=== PATIENT | female | born 1955 | race Caucasian/White ===

== ENCOUNTER → 2017-01-12 | Outpatient (CLI) | payer BC, OTHER ==
[~2017-01-12] MED LIST: ALL180 PO; CHOL100027 PO; CYCL10TA6 PO; DYZ PO; LEVO25TA34 PO; MECL25TA2 PO; NAPR-943 PO; PRM9
== END | disposition home or self-care (01) ==
LOC: C.RDSM 14:44
PROVIDERS: ATTEND Physical Medicine & Rehabilitation Sports Medicine
DX: S49.90XA Unspecified injury of shoulder and upper arm, unspecified arm, initial encounter (principal); X58.XXXA Exposure to other specified factors, initial encounter; M25.512 Pain in left shoulder

== ENCOUNTER → 2017-05-31 | Outpatient (CLI) | payer BC ==
--- NOTE | 2017-05-31 11:10 | DIAGNOSTIC IMAGING REPORT ---
MRI LUMBAR SPINE W/O CONTRAST CLINICAL HISTORY: Low back pain with bilateral leg radiculopathy and leg weakness. Failure to respond to physical therapy. TECHNIQUE: Sagittal and axial T1, T2 and STIR images were obtained. COMPARISON STUDY: No previous studies for comparison. OBSERVATIONS: There is an L1 vertebral body hemangioma. There are no areas of marrow replacement to indicate metastatic disease. L1-2: No disc protrusions or extrusions. No evidence of spinal canal or neural foraminal compromise. L2-3: There is a circumferential disc bulge with mild spinal stenosis. There is no significant foraminal narrowing. There is a 8 mm T2 bright left renal lesion likely representing a cyst L3-4: No disc protrusions or extrusions. No evidence of spinal canal or neural foraminal compromise. L4-5: There is a circumferential disc bulge present. There is moderate spinal stenosis. There is minimal bilateral foraminal narrowing. L5-S1: There is a tiny central disc protrusion. There is bilateral facet joint arthropathy. There is bilateral foraminal narrowing. The conus medullaris and cauda equina appear normal. IMPRESSION: 1. Circumferential disc bulge and mild spinal stenosis the L2-3 level 2. Circumferential disc bulge and moderate spinal stenosis the L4-5 level 3. Tiny central disc protrusion at the L5-S1 level. Moderate bilateral foraminal narrowing. Electronically signed by: Boris Morales M.D. 05/31/2017 11:09 AM Dictated Date/Time: 05/31/2017 11:04 AM
== END | disposition home or self-care (01) ==
LOC: C.MRI 10:06
PROVIDERS: ATTEND Internal Medicine Rheumatology
DX: M51.27 Other intervertebral disc displacement, lumbosacral region (principal); M48.061 Spinal stenosis, lumbar region without neurogenic claudication

== ENCOUNTER 2017-08-03 07:49 | Emergency (ER) | payer BC ==
[~2017-08-03] VITALS: Ht 160 cm; Wt 63.8 kg
[~2017-08-03 07:49] MED LIST changes: -NAPR-943 PO
[2017-08-03 07:54] VITALS: Ht 160 cm; Wt 63.8 kg
[2017-08-03] MEDS ORDERED: SODIUM CHLORIDE 0.9% 1000ML 1,000 ML IV STA (08:06)
[2017-08-03] MEDS ORDERED: ALBUT/IPRATROP 3MG/0.5MG NEB 3 ML VIAL INH STA (08:06)
[2017-08-03 08:44] LABS: BASO % 0.4 %; BASO ABS # 0.03 K/uL (0-0.2); HEMATOCRIT 35.4 % (37-47); HEMOGLOBIN 12.4 g/dL (12.0-16.0); IG# 0.01 K/uL (0.00-0.02); LYMPH % 10.5 %; MEAN CELL VOLUME 85.9 fL (80-100); MEAN CORPUSCULAR HEMOGLOBIN 30.1 pg (25-34); MEAN PLATELET VOLUME 10.5 fL (7.4-10.4); MONO % 10.9 %; MONO ABS # 0.73 K/uL (0.11-0.59); NEUT % 78.1 %; NEUT ABS # 5.22 K/uL (1.4-6.5); PLATELET COUNT 227 K/uL (130-400); RED CELL DISTRIBUTION WIDTH CV 12.2 % (11.5-14.5); RED CELL DISTRIBUTION WIDTH SD 38.3 fL (36.4-46.3); WHITE BLOOD COUNT 6.69 K/uL (4.8-10.8)
[2017-08-03 08:58] LABS: ALBUMIN 3.6 gm/dl (3.4-5.0); BLOOD UREA NITROGEN 24 mg/dl (7-18); CALCIUM 9.1 mg/dl (8.5-10.1); CARBON DIOXIDE 26 mmol/L (21-32); CREATININE 1.22 mg/dl (0.60-1.20); GLUCOSE 108 mg/dl (70-99); LIPASE 78 U/L (73-393); POTASSIUM 2.9 mmol/L (3.5-5.1); SODIUM 137 mmol/L (136-145)
[2017-08-03 09:01] LABS: ALKALINE PHOSPHATASE 84 U/L (45-117); ALT/SGPT 19 U/L (12-78); AST/SGOT 26 U/L (15-37); TOTAL PROTEIN 7.9 gm/dl (6.4-8.2)
[2017-08-03 09:09] LABS: INFLUENZA B ANTIGEN Neg for Influ B (NEG)
[2017-08-03] MEDS ORDERED: FEXO1TAB46 PO (09:09)
[2017-08-03] MEDS ORDERED: TRIATAB3 PO (09:09)
[2017-08-03] MEDS ORDERED: LEVO25TA PO (09:09)
[2017-08-03] MEDS ORDERED: MECL1TAB42 PO (09:09)
[2017-08-03] MEDS ORDERED: AMLO-114 PO (09:11)
[2017-08-03] MEDS ORDERED: POTASSIUM CHLORIDE 10 MEQ TABCR PO STA (09:11)
--- NOTE | 2017-08-03 09:14 | DIAGNOSTIC IMAGING REPORT ---
PA CHEST RADIOGRAPH AND UPRIGHT AND SUPINE AP RADIOGRAPHS OF THE ABDOMEN CLINICAL HISTORY: Abdominal pain. COMPARISON STUDY: Chest radiograph April 24, 2013. FINDINGS: Incidental note is made of an anterior cervical spine fusion. Lung volumes are at the lower limits of normal. There is no consolidation. There is no evidence for pulmonary edema. Cardiomediastinal silhouette is unremarkable. There is no free air. The bowel gas pattern is normal. Pelvic calcifications likely reflect phleboliths. A mild to moderate amount of stool within the colon and rectum is noted. IMPRESSION: 1. No free air or evidence of bowel obstruction. 2. No acute cardiopulmonary findings. Electronically signed by: Reji Sorenson M.D. 08/03/2017 9:12 AM Dictated Date/Time: 08/03/2017 9:11 AM
[2017-08-03] MEDS ORDERED: OSEL75CA12 PO (09:48)
[2017-08-03] MEDS ORDERED: BENZ100C18 PO (09:48)
[2017-08-03] MEDS ORDERED: POTA10CA28 PO (09:48)
[2017-08-03 10:05] VITALS: BP 134/72; PULSE 95; TEMP 37.3; O2SAT 94
--- NOTE | 2017-08-03 11:50 | EMERGENCY ROOM VISIT NOTE ---
ED Visit Note First contact with patient: 07:58 Chief Complaint: Throat pain and cough. History of Present Illness: Ms. Velásquez is a 62-year-old white female who ambulates into the ED complaining of throat pain, cough and abdominal pain. Patient reports she works in a [employer] and has been exposed to a sick patients and her has been recently diagnosed with influenza. She did have an influenza vaccination this year. Patient reports 2 days ago she started developing a cough. She reports since that time it is been constant and nonproductive. She reports when she starts coughing she also has throat pain and abdominal pain. She describes her throat pain as an achy sensation. She does not rate this discomfort. Her discomfort is only when she coughs. She has not taken a medication for her throat discomfort. Additionally she reports she is having abdominal pain with the cough. She places this over the upper abdomen in a bandlike distribution throughout the right and left upper quadrant. Once again this discomfort is only with cough. She rates this discomfort 6/10. The pain is nonradiating. She has not taken a medication for pain prior to arrival at the hospital. Associated with her symptoms she reports she's been having chills but denies yossi fevers, body aches, decreased appetite. She denies skin eruptions, skin color changes, headache, dizziness, lightheadedness, hearing changes, visual changes, difficulty speaking, painful talking, drooling, neck pain/stiffness, chest pain, palpitations, orthopnea, dependent edema, nausea, vomiting, diarrhea, constipation. Review of Systems: As noted above in history of present illness. All body systems were reviewed and found to be negative as noted above. Past Medical History: Hypertension, arthritis, hypothyroidism, Mnire's disease , migraine headaches, cervical spine degeneration, cervical fusion, status post hysterectomy. Current Medications: Medications Dose Route/Sig Max Daily Dose Days Date Category Dose Instructions Norvasc (Amlodipine Besylate) 10 Mg Tab 10 Mg PO DAILY 08/03/17 Reported Triamterene/Hctz 37.5-25MG (Triamterene/HCTZ) 1 Tab Tab 2 Tab PO DAILY 08/03/17 Reported Meclizine Hcl 25 Mg Tab 25 Mg PO TID PRN 08/03/17 Reported Synthroid (Levothyroxine Sodium) 25 Mcg Tab 25 Mcg PO DAILY 08/03/17 Reported Regla (Fexofenadine Hcl) 180 Mg Tab 180 Mg PO DAILY 08/03/17 Reported Premarin (Estrogens, Conjugated) 0.9 Mg Tab 0.9 Mg Q2D 04/24/13 Reported Flexeril (Cyclobenzaprine Hcl) 10 Mg Tab 10 Mg PO TID PRN 04/24/13 Reported PRN Vitamin D 1000 Unit (Cholecalciferol) 1,000 Unit Cap 2,000 Inter.unit PO DAILY 04/24/13 Reported Allergies to Medications: Cephalexin, erythromycin, penicillin, sulfa, fluconazole. Social History: Patient is currently employed; she lives with her and feels safe in her home environments; she denies tobacco use. Physical Examination: Vital Signs: Date Time Temp Pulse Resp B/P (MAP) Pulse Ox O2 Delivery O2 Flow Rate FiO2 08/03/17 10:05 37.3 95 18 134/72 94 08/03/17 10:01 95 18 134/72 94 Room Air 08/03/17 07:54 37.3 101 18 129/65 95 Room Air GENERAL: 62-year-old female in mild distress due to symptoms, nontoxic-appearing , afebrile and hemodynamically stable. NEUROLOGICAL: Awake, alert and oriented to person, place and time. Answering questions appropriately and following commands. Normal gait. Good hand eye coordination. No focal motor or sensory deficits. SKIN: Warm, dry and pink. No soft tissue eruptions or trauma noted. HEENT: Atraumatic and normocephalic. No erythema or tenderness over the frontal or maxillary sinuses. Normal ear exam. PERRL. Sclera white and conjunctiva pink. No drainage from naris, but mild audible congestion. Oral cavity moist and pink. Uvula is midline and no abscesses are seen. Pharynx is mildly erythematous and mildly edematous. No exudative material. Speech normal. No lymphadenopathy. Trachea midline. No jugular venous distention. No laryngeal tenderness. BACK: No tenderness over the bony spine. No meningismus. Full range of motion of the cervical spine. No CVA tenderness. THORAX: Lungs sounds are clear to auscultation and equal bilaterally with symmetrical chest wall. Decreased air movement in the bases bilaterally with slight right sided prominence. There are a few scattered rhonchi that clear with cough. No rales or wheezing. No wheezing, rales or rhonchi. No crepitus , tenderness, subcutaneous air or deformities noted. HEART: Regular rate and rhythm. No gallops, rubs or murmurs are appreciated. ABDOMEN: Flat, soft and nontender. Positive bowel sounds in all quadrants. No guarding, rigidity or organomegaly. EXTREMITIES: Moves all extremities well on command and with purpose. All distal neurovascular statuses are intact and equal bilaterally. No calf tenderness or cords. ED Course: Patient is assessed as noted above. Patient's medication list was reviewed. Laboratory Tests: Test 08/03/17 08:15 08/03/17 08:20 08/03/17 08:26 Range/Units Influenza Type A Antigen POS for Influ A NEG Influenza Type B Antigen Neg for Influ B NEG White Blood Count 6.69 4.8-10.8 K/uL Red Blood Count 4.12 4.2-5.4 M/uL Hemoglobin 12.4 12.0-16.0 g/dL Hematocrit 35.4 37-47 % Mean Corpuscular Volume 85.9 80-100 fL Mean Corpuscular Hemoglobin 30.1 25-34 pg Mean Corpuscular Hemoglobin Concent 35.0 32-36 g/dl Platelet Count 227 130-400 K/uL Mean Platelet Volume 10.5 7.4-10.4 fL Neutrophils (%) (Auto) 78.1 % Lymphocytes (%) (Auto) 10.5 % Monocytes (%) (Auto) 10.9 % Eosinophils (%) (Auto) 0.0 % Basophils (%) (Auto) 0.4 % Neutrophils # (Auto) 5.22 1.4-6.5 K/uL Lymphocytes # (Auto) 0.70 1.2-3.4 K/uL Monocytes # (Auto) 0.73 0.11-0.59 K/uL Eosinophils # (Auto) 0.00 0-0.5 K/uL Basophils # (Auto) 0.03 0-0.2 K/uL RDW Standard Deviation 38.3 36.4-46.3 fL RDW Coefficient of Variation 12.2 11.5-14.5 % Immature Granulocyte % (Auto) 0.1 % Immature Granulocyte # (Auto) 0.01 0.00-0.02 K/uL Sodium Level 137 136-145 mmol/L Potassium Level 2.9 3.5-5.1 mmol/L Chloride Level 100 98-107 mmol/L Carbon Dioxide Level 26 21-32 mmol/L Anion Gap 11.0 3-11 mmol/L Blood Urea Nitrogen 24 7-18 mg/dl Creatinine 1.22 0.60-1.20 mg/dl Est Creatinine Clear Calc Drug Dose 41.9 ml/min Estimated GFR () 54.2 Estimated GFR (Non- 46.8 BUN/Creatinine Ratio 20.0 10-20 Random Glucose 108 70-99 mg/dl Calcium Level 9.1 8.5-10.1 mg/dl Total Bilirubin 0.4 0.2-1 mg/dl Direct Bilirubin < 0.1 0-0.2 mg/dl Aspartate Amino Transf (AST/SGOT) 26 15-37 U/L Alanine Aminotransferase (ALT/SGPT) 19 12-78 U/L Alkaline Phosphatase 84 45-117 U/L Total Protein 7.9 6.4-8.2 gm/dl Albumin 3.6 3.4-5.0 gm/dl Lipase 78 73-393 U/L Bedside Troponin I < 0.030 0-0.045 ng/ml Group A Streptococcus Screen: Negative. Culture pending. Acute Abdominal X-Ray Series: Were read by myself and the radiologist; DC chest shows no acute infiltrates, effusions or pneumothorax. Normal heart silhouette and bony anatomy. Abdominal component shows a nonspecific bowel gas pattern with no signs of free air or bowel obstruction. Radiologist does note mild to moderate amount of stools within the colon and rectum and prior anterior cervical spine fusion. EKG: As read by myself and shows normal sinus rhythm with a ventricular rate of [address] changes in the anterior lead. Slightly prolonged QT interval when compared to previous. No signs of ischemia, injury or infarction. Patient was hydrated with normal saline and was given an albuterol/Atrovent nebulizer breathing treatment; she was offered pain medications and refused. Patient was given 20 mEq of potassium by mouth for her hypokalemia Patient was reassessed multiple times during her stay in the emergency department after her breathing treatment her lungs are reevaluated she had improved air movement in all andersen and had no additional rhonchi or rales. Patient's case was reviewed with Dr. Forrester; we agreed on diagnostic approach , treatment, disposition and plan. Patient was educated about today's findings and instructed on her treatment plan ; she verbalized understanding and agreement with this plan. Clinical Impression: Influenza A. Hypokalemia. Cough. Abdominal pain. Throat pain. Decision-Making: Initially my differential diagnosis I considered influenza, pneumonia, bronchitis, pulmonary edema, pancreatitis, hepatitis, cholecystitis, constipation, bowel obstruction and pharyngitis from multiple causes. Disposition: Patient discharged home in stable condition accompanied by her ; prior to departure she was reassessed and subjectively reported she was feeling better. Plan: Patient was encouraged to alternate ibuprofen and acetaminophen every 3 hours for persistent pain. Patient was prescribed Tamiflu, Tessalon Perles and potassium and instructed on their use. Patient was encouraged to stay well-hydrated with increased clear fluids. Patient was encouraged to follow-up with family physician for recheck and reevaluation of her potassium and kidney function testing. Patient was signed off work for 5 days. Patient was encouraged return ED for worsening symptoms, uncontrolled vomiting, fevers, wheezing, coughing up blood, shortness of breath or any new/concerning symptoms.
== END 2017-08-03 10:05 | disposition home or self-care (01) ==
LOC: C.EDB 07:51 → C.EDA 10:05
DX: J09.X2 Influenza due to identified novel influenza A virus with other respiratory manifestations (principal); E87.6 Hypokalemia; R05 Cough; R10.9 Unspecified abdominal pain; I10 Essential (primary) hypertension; E03.9 Hypothyroidism, unspecified; Z98.1 Arthrodesis status; Z90.710 Acquired absence of both cervix and uterus; Z79.899 Other long term (current) drug therapy; Z88.0 Allergy status to penicillin; Z88.2 Allergy status to sulfonamides; Z88.8 Allergy status to other drugs, medicaments and biological substances

== ENCOUNTER 2018-02-14 16:29 | Inpatient (IN) | payer BC ==
[~2018-02-14] VITALS: Ht 160 cm; Wt 62.1 kg
[~2018-02-14 16:29] MED LIST changes: -ALL180 PO; +AMLO10TA3 PO; -DYZ PO; +FEXO1TAB46 PO; +LEVO25TA PO; -LEVO25TA34 PO; +MECL1TAB42 PO; -MECL25TA2 PO; -PRM9; +PRM9 PO; +TRIATAB3 PO
[2018-02-14] MEDS ORDERED: SODIUM CHLORIDE 0.9% 1000ML 1,000 ML IV STA (16:48)
[2018-02-14 17:20] LABS: BASO % 0.3 %; BASO ABS # 0.04 K/uL (0-0.2); EOS % 0.6 %; EOS ABS # 0.08 K/uL (0-0.5); HEMATOCRIT 36.4 % (37-47); HEMOGLOBIN 12.7 g/dL (12.0-16.0); IG# 0.04 K/uL (0.00-0.02); LYMPH ABS # 4.57 K/uL (1.2-3.4); MEAN CELL VOLUME 86.9 fL (80-100); MEAN CORPUSCULAR HEMOGLOBIN 30.3 pg (25-34); MEAN CORPUSCULAR HGB CONC 34.9 g/dl (32-36); MEAN PLATELET VOLUME 10.5 fL (7.4-10.4); MONO % 4.5 %; MONO ABS # 0.61 K/uL (0.11-0.59); NEUT % 60.3 %; NEUT ABS # 8.09 K/uL (1.4-6.5); PLATELET COUNT 217 K/uL (130-400); RED CELL DISTRIBUTION WIDTH CV 12.4 % (11.5-14.5); RED CELL DISTRIBUTION WIDTH SD 39.8 fL (36.4-46.3); WHITE BLOOD COUNT 13.43 K/uL (4.8-10.8)
[2018-02-14] MEDS ORDERED: LISI-729 PO (17:37)
[2018-02-14 17:40] LABS: ALBUMIN 3.7 gm/dl (3.4-5.0); CALCIUM 9.1 mg/dl (8.5-10.1); CREATININE 3.3 mg/dl (0.60-1.20); POTASSIUM 4.2 mmol/L (3.5-5.1); TOTAL PROTEIN 7.9 gm/dl (6.4-8.2)
[2018-02-14] MEDS ORDERED: NAPR-943 PO (17:40)
--- NOTE | 2018-02-14 17:47 | EMERGENCY ROOM VISIT NOTE ---
ED Visit Note First contact with patient: 16:37 CHIEF COMPLAINT: Abnormal labs HISTORY OF PRESENTING ILLNESS: This is a 62-year-old female who presents to the emergency department sent in by her doctor for abnormal labs. Patient states that she has been feeling dizzy for the past few days and felt like she might be dehydrated. She had lab work done 2 days ago by her doctor which resulted today and he called her telling her that her kidneys were abnormal and she needed to go to the ER for fluids. She states that she has continued to feel lightheaded in spite of drinking more fluids, but she denies any syncope. She denies any headaches, vision changes, chest pain, shortness of breath, back pain , abdominal pain, nausea or vomiting, urinary symptoms, or unusual rash. She states her lightheadedness is not severe right now, but gets worse with position changes, currently rates it a 2/10. She denies any history of problems with her kidneys. She is not a diabetic. She has history of high blood pressure. She denies any other complaints. REVIEW OF SYSTEMS: A complete 10 point review of systems was reviewed with the patient with pertinent positives and negatives as per history of present illness. All else were negative. PAST MEDICAL HISTORY: Reviewed in chart, see problem list below. SOCIAL HISTORY: Lives at home. She denies tobacco use. ALLERGIES: Reviewed in chart, see below. PHYSICAL EXAM: CONSTITUTIONAL: Pleasant and cooperative. No acute distress. Moderately dehydrated. HEENT: Normocephalic, atraumatic. Pupils equal, round and reactive to light, EOMI. TMs normal. Pharynx normal. Dry mucous membranes. NECK: Supple, full active range of motion without discomfort. RESPIRATORY: Clear to auscultation bilaterally with no wheezing, crackles, rhonchi or stridor. Equal expansion bilaterally. CARDIOVASCULAR: Tachycardic. Regular rhythm with no murmurs, rubs or gallops. Normal peripheral perfusion. No edema. GASTROINTESTINAL: Soft, nontender, nondistended. No palpable masses or HSM. Bowel sounds present in all quadrants. MUSCULOSKELETAL: No calf tenderness or swelling. Full range of motion of all joints without discomfort. INTEGUMENTARY: No rash or other significant dermatologic conditions noted. NEUROLOGIC: Alert and oriented X 4 with normal affect. Cranial nerves II-XII grossly intact, no facial droop. No pronator drift. No focal neurologic deficits noted. 5/5 strength in all 4 extremities, sensation intact to light touch in all 4 extremities. Normal speech. Normal gait observed. Finger-nose- finger testing normal, negative Romberg. ED COURSE AND MEDICAL DECISION MAKING: CC: Patient presenting with complaint of abnormal labs (kidney function), dizziness/lightheadedness DIFFERENTIAL DIAGNOSIS: Includes, but not limited to dehydration, electrolyte abnormality, acute kidney injury, medication side effect, orthostatic hypotension, cardiac dysrhythmia, among others. INTERPRETATION OF LABS: Mild leukocytosis with left shift, no anemia, normal platelets, mild hyponatremia, no other significant electrolyte abnormalities, acute renal failure when compared to baseline, normal liver enzymes. UA negative for infection, appears consistent with contaminant. EKG: Shows normal sinus rhythm with a rate of 97 bpm, nonspecific ST abnormality , but no acute ischemic ST or T-wave changes, no ectopy, and no significant change when compared with previous EKG from 08/03/2017 noted by my interpretation. MEDICATION RECONCILIATION: I attest that I have personally reviewed the patient 's current medication list. INITIAL VITAL SIGNS REVIEW: I reviewed the patient's initial vital signs and interpret them as follows: T: Afebrile; BP: Normotensive; HR: Tachycardic; RR : Within normal limits; Pulse Ox: Within normal limits on room air. Blood pressure screening: The patient was found to have normal blood pressure on screening and does not require follow-up for repeat blood pressure check. SUMMARY: Patient was evaluated at bedside, history and physical exam performed. Patient is alert and oriented, in no acute distress, resting calmly in stretcher. Patient is noted to be moderately tachycardic and appears dehydrated on exam. Orthostatic vital signs are positive with hypotension upon standing. Patient does also have some mild lightheadedness with position changes. Orders were placed at bedside for labs, UA, IV fluid bolus for hydration, EKG to evaluate for dizziness and tachycardia. Patient discussed with Dr. Wellington, who agrees with my assessment and plan. Labs and imaging reviewed as above, labs notable for an acute kidney injury, comparison to most recent labs in our system from July 2017 with creatinine of 1.2, which is a new change. Review of outpatient labs notes a creatinine of 1.4 in December, and creatinine of 3.2 on 02/12. I [facility] Hamlet [facility], who agrees to evaluate the patient for admission. Patient reassessed multiple times throughout ED stay, she has remained stable and without complaints, her tachycardia is improving with IV fluid bolus. Patient was updated on all results and plan for admission, she verbalized understanding and was agreeable to this plan. Patient was stable at time of admission. Problem List Medical Problems: (1) Arthritis Status: Chronic (2) Benign hypertension Status: Chronic (3) Carpal tunnel syndrome Status: Resolved (4) cervical spine degeneration Status: Chronic (5) Chest pain Status: Resolved (6) CKD (chronic kidney disease), stage III Status: Chronic (7) Hypothyroidism Status: Chronic (8) Hysterectomy Status: Resolved (9) Mammography normal Status: Resolved (10) MENIERE'S DISEASE, UNSPECIFIED Status: Chronic (11) Migraine Status: Chronic (12) spine fusion - cervical Status: Resolved Surgical Problems: (1) History of carpal tunnel surgery Status: Resolved (2) History of hysterectomy Status: Resolved Current/Historical Medications Scheduled Baclofen (Lioresal), 10 MG PO TID Cholecalciferol (Vitamin D 1000 Unit), 2,000 INTER.UNIT PO DAILY Estrogens, Conjugated (Premarin), 0.9 MG PO Q2D Fexofenadine Hcl (Regla), 180 MG PO DAILY Levothyroxine Sodium (Synthroid), 25 MCG PO DAILY Lisinopril (Zestril), 5 MG PO DAILY Ondasetron Odt (Zofran Odt), 4 MG SL Q8 Triamterene/Hctz (Dyazide 37.5MG/25MG), 1 CAP PO DAILY Scheduled PRN Meclizine Hcl (Meclizine Hcl), 25 MG PO TID PRN for Dizziness or Vertigo Tramadol (Ultram), 50 MG PO Q6 PRN for Pain Allergies Coded Allergies: Sulfa Drugs (Verified Allergy, Severe, SHOCK, 08/03/17) Penicillins (Verified Allergy, Intermediate, SHOCK, 08/03/17) Cephalexin (Unverified Allergy, Unknown, UNKNOWN, 08/03/17) Erythromycin (Unverified Allergy, Unknown, UNKNOWN, 08/03/17) Fluconazole (Unverified Allergy, Unknown, 08/03/17) Vital Signs Date Time Temp Pulse Resp B/P (MAP) Pulse Ox O2 Delivery O2 Flow Rate FiO2 02/14/18 18:29 90 21 98 02/14/18 17:32 114/61 02/14/18 17:29 88 17 98 02/14/18 17:13 97 02/14/18 16:58 95/79 02/14/18 16:56 99 123/64 99 Room Air 97 137/120 114 95/79 02/14/18 16:33 36.8 123 19 107/74 98 Room Air Laboratory Results 02/14/18 17:10 Red Blood Count 4.19, Mean Corpuscular Volume 86.9, Mean Corpuscular Hemoglobin 30.3, Mean Corpuscular Hemoglobin Concent 34.9, Mean Platelet Volume 10.5, Neutrophils (%) (Auto) 60.3, Lymphocytes (%) (Auto) 34.0, Monocytes (%) (Auto) 4.5, Eosinophils (%) (Auto) 0.6, Basophils (%) (Auto) 0.3, Neutrophils # (Auto) 8.09, Lymphocytes # (Auto) 4.57, Monocytes # (Auto) 0.61, Eosinophils # (Auto) 0.08, Basophils # (Auto) 0.04 02/14/18 17:10 Test 02/14/18 17:10 02/14/18 17:11 White Blood Count 13.43 K/uL (4.8-10.8) Red Blood Count 4.19 M/uL (4.2-5.4) Hemoglobin 12.7 g/dL (12.0-16.0) Hematocrit 36.4 % (37-47) Mean Corpuscular Volume 86.9 fL (80-100) Mean Corpuscular Hemoglobin 30.3 pg (25-34) Mean Corpuscular Hemoglobin Concent 34.9 g/dl (32-36) Platelet Count 217 K/uL (130-400) Mean Platelet Volume 10.5 fL (7.4-10.4) Neutrophils (%) (Auto) 60.3 % Lymphocytes (%) (Auto) 34.0 % Monocytes (%) (Auto) 4.5 % Eosinophils (%) (Auto) 0.6 % Basophils (%) (Auto) 0.3 % Neutrophils # (Auto) 8.09 K/uL (1.4-6.5) Lymphocytes # (Auto) 4.57 K/uL (1.2-3.4) Monocytes # (Auto) 0.61 K/uL (0.11-0.59) Eosinophils # (Auto) 0.08 K/uL (0-0.5) Basophils # (Auto) 0.04 K/uL (0-0.2) RDW Standard Deviation 39.8 fL (36.4-46.3) RDW Coefficient of Variation 12.4 % (11.5-14.5) Immature Granulocyte % (Auto) 0.3 % Immature Granulocyte # (Auto) 0.04 K/uL (0.00-0.02) Prothrombin Time 10.1 SECONDS (9.0-12.0) Prothromb Time International Ratio 1.0 (0.9-1.1) Activated Partial Thromboplast Time 23.9 SECONDS (21.0-31.0) Partial Thromboplastin Ratio 0.9 Anion Gap 10.0 mmol/L (3-11) Est Creatinine Clear Calc Drug Dose 14.2 ml/min Estimated GFR () 16.3 Estimated GFR (Non- 14.0 BUN/Creatinine Ratio 24.7 (10-20) Calcium Level 9.1 mg/dl (8.5-10.1) Phosphorus Level 5.2 mg/dl (2.5-4.9) Magnesium Level 2.4 mg/dl (1.8-2.4) Total Bilirubin 0.4 mg/dl (0.2-1) Aspartate Amino Transf (AST/SGOT) 22 U/L (15-37) Alanine Aminotransferase (ALT/SGPT) 23 U/L (12-78) Alkaline Phosphatase 83 U/L (45-117) Total Protein 7.9 gm/dl (6.4-8.2) Albumin 3.7 gm/dl (3.4-5.0) Globulin 4.2 gm/dl (2.5-4.0) Albumin/Globulin Ratio 0.9 (0.9-2) Thyroid Stimulating Hormone (TSH) 4.970 uIu/ml (0.300-4.500) Urine Color YELLOW Urine Appearance CLOUDY (CLEAR) Urine pH 5.5 (4.5-7.5) Urine Specific [place] 1.015 (1.000-1.030) Urine Protein NEG (NEG) Urine Glucose (UA) NEG (NEG) Urine Ketones NEG (NEG) Urine Occult Blood NEG (NEG) Urine Nitrite NEG (NEG) Urine Bilirubin NEG (NEG) Urine Urobilinogen NEG (NEG) Urine Leukocyte Esterase NEG (NEG) Urine WBC (Auto) 5-10 /hpf (0-5) Urine RBC (Auto) 0-4 /hpf (0-4) Urine Hyaline Casts (Auto) 1-5 /lpf (0-5) Urine Epithelial Cells (Auto) >30 /lpf (0-5) Urine Bacteria (Auto) 1+ (NEG) Medications Administered Medications (Trade) Dose Ordered Sig/Aries Route Start Time Stop Time Status Last Admin Dose Admin Sodium Chloride 1,000 ml @ 999 mls/hr Q1H1M STAT IV 02/14/18 16:48 02/14/18 17:48 DC 02/14/18 16:48 999 MLS/HR Departure Information Impression Primary Impression: WYATT (acute kidney injury) Dispostion Admitted as an inpatient Condition FAIR Referrals Lucas Epps III, M.D. (PCP) Patient Instructions My [facility]
[2018-02-14] MEDS ORDERED: ACETAMINOPHEN 325 MG TAB PO PRN (18:45)
[2018-02-14] MEDS ORDERED: POLYETHYLENE (MIRALAX) 17 GM PACK PO PRN (18:45)
[2018-02-14] MEDS ORDERED: HEPARIN SOD 5000 UNIT/0.5 ML CARP SQ SCH (18:45)
[2018-02-14] MEDS ORDERED: ONDANSETRON INJ 2 MG/ML 2 ML VIAL IV PRN (18:45)
[2018-02-14] MEDS ORDERED: BACL1TAB PO (18:52)
[2018-02-14] MEDS ORDERED: ONDA4TAB10 SL (18:52)
[2018-02-14] MEDS ORDERED: TRAM-10 PO (18:52)
[2018-02-14] MEDS ORDERED: HEPARIN 25000 UNIT/500 ML D5W ONE (18:56)
[2018-02-14] MEDS ORDERED: TRIA37.5 PO (18:59)
[2018-02-14] MEDS ORDERED: TRAMADOL HCL 50 MG TAB PO PRN (19:00)
[2018-02-14 19:23] LABS: PTT PATIENT 23.9 SECONDS (21.0-31.0)
--- NOTE | 2018-02-14 19:27 | History and Physical ---
History & Physical Date & Time of Service: Feb 14, 2018 at 18:53 Chief Complaint: Referred By Dr Epps Primary Care Physician: Lucas Epps III, M.D. History of Present Illness Source: patient, family, clinic records, hospital records Pt is 62 y/o F with PMH CKD III, migraine FLORES, Meniere's, hypothyroidism, HTN presented to ER referred by PCP for worsening renal functions. Patient reports last week was having some dizziness aggravated with standing, denies vertigo type symptoms. She had nausea and vomited once last week, no further vomiting since. She was seen at PCPs office and had outpatient labs done revealing elevated creatinine level. Denies NSAID use for past month. Taking triamterene/ hctz. Was started on lisinopril on 01/28/18. Drinks total 2 cups fluids a day ( soda or tea). States some intermittent low back pain past week described as aching, non-radiating. Denies LE pain or paresthesias, saddle paresthesias, loss control of bowel/bladder. urinates 2-3 times a day. Denies hx kidney stones. Denies fever/chills, diaphoresis, D/C, FLORES, syncope, vision changes, neck pain, CP, SOB, orthopnea, palpitations, cough, sore throat, choking, otalgia, rhinorrhea, abdominal pain, paresthesias, weakness, extremity weakness , extremity edema, rashes, urinary symptoms, weight changes. Past Medical/Surgical History Medical Problems: (1) Arthritis Status: Chronic (2) Benign hypertension Status: Chronic (3) Carpal tunnel syndrome Status: Resolved (4) cervical spine degeneration Status: Chronic (5) Chest pain Status: Resolved (6) CKD (chronic kidney disease), stage III Status: Chronic (7) Hypothyroidism Status: Chronic (8) Hysterectomy Status: Resolved (9) Mammography normal Status: Resolved (10) MENIERE'S DISEASE, UNSPECIFIED Status: Chronic (11) Migraine Status: Chronic (12) spine fusion - cervical Status: Resolved Surgical Problems: (1) History of carpal tunnel surgery Status: Resolved (2) History of hysterectomy Status: Resolved Family History FH: cancer FH: hypercholesterolemia FH: thyroid disease Hypertension Stroke Social History Smoking Status: Never Smoker Smokeless Tobacco Use: No Alcohol Use: none Drug Use: none Marital Status: Housing status: lives with family Occupational Status: employed Immunizations History of Influenza Vaccine: No History of Tetanus Vaccine?: utd History of Pneumococcal: No History of Hepatitis B Vaccine: No Allergies Coded Allergies: Sulfa Drugs (Verified Allergy, Severe, SHOCK, 08/03/17) Penicillins (Verified Allergy, Intermediate, SHOCK, 08/03/17) Cephalexin (Unverified Allergy, Unknown, UNKNOWN, 08/03/17) Erythromycin (Unverified Allergy, Unknown, UNKNOWN, 08/03/17) Fluconazole (Unverified Allergy, Unknown, 08/03/17) Home Medications Scheduled Baclofen (Lioresal), 10 MG PO TID Cholecalciferol (Vitamin D 1000 Unit), 2,000 INTER.UNIT PO DAILY Estrogens, Conjugated (Premarin), 0.9 MG PO Q2D Fexofenadine Hcl (Regla), 180 MG PO DAILY Levothyroxine Sodium (Synthroid), 25 MCG PO DAILY Lisinopril (Zestril), 5 MG PO DAILY Ondasetron Odt (Zofran Odt), 4 MG SL Q8 Triamterene/Hctz (Dyazide 37.5MG/25MG), 1 CAP PO DAILY Scheduled PRN Meclizine Hcl (Meclizine Hcl), 25 MG PO TID PRN for Dizziness or Vertigo Tramadol (Ultram), 50 MG PO Q6 PRN for Pain Review of Systems See HPI for pertinent positives & negatives. All other systems reviewed and were otherwise negative Physical Exam Vital Signs Date Time Temp Pulse Resp B/P (MAP) Pulse Ox O2 Delivery O2 Flow Rate FiO2 02/14/18 18:29 90 21 98 02/14/18 17:32 114/61 02/14/18 17:29 88 17 98 02/14/18 17:13 97 02/14/18 16:58 95/79 02/14/18 16:56 99 123/64 99 Room Air 97 137/120 114 95/79 02/14/18 16:33 36.8 123 19 107/74 98 Room Air General Appearance: WD/WN, no apparent distress Head: normocephalic, atraumatic Eyes: normal inspection, PERRL, EOMI, sclerae normal ENT: hearing grossly normal, pharynx normal, + pertinent finding (mucous membranes mildly dry) Neck: supple, trachea midline Respiratory/Chest: lungs clear, normal breath sounds, no respiratory distress Cardiovascular: regular rate, rhythm, normal peripheral pulses Abdomen/GI: normal bowel sounds, non tender, soft Back: no CVA tenderness Extremities/Musculoskelatal: normal capillary refill, no pedal edema, normal range of motion, non-tender Neurologic/Psych: alert, normal mood/affect, normal reflexes Skin: warm/dry Diagnostics Laboratory Results Results Past 24 Hours Test 02/14/18 17:10 02/14/18 17:11 02/14/18 18:43 Range/Units White Blood Count 13.43 4.8-10.8 K/uL Red Blood Count 4.19 4.2-5.4 M/uL Hemoglobin 12.7 12.0-16.0 g/dL Hematocrit 36.4 37-47 % Mean Corpuscular Volume 86.9 80-100 fL Mean Corpuscular Hemoglobin 30.3 25-34 pg Mean Corpuscular Hemoglobin Concent 34.9 32-36 g/dl Platelet Count 217 130-400 K/uL Mean Platelet Volume 10.5 7.4-10.4 fL Neutrophils (%) (Auto) 60.3 % Lymphocytes (%) (Auto) 34.0 % Monocytes (%) (Auto) 4.5 % Eosinophils (%) (Auto) 0.6 % Basophils (%) (Auto) 0.3 % Neutrophils # (Auto) 8.09 1.4-6.5 K/uL Lymphocytes # (Auto) 4.57 1.2-3.4 K/uL Monocytes # (Auto) 0.61 0.11-0.59 K/uL Eosinophils # (Auto) 0.08 0-0.5 K/uL Basophils # (Auto) 0.04 0-0.2 K/uL RDW Standard Deviation 39.8 36.4-46.3 fL RDW Coefficient of Variation 12.4 11.5-14.5 % Immature Granulocyte % (Auto) 0.3 % Immature Granulocyte # (Auto) 0.04 0.00-0.02 K/uL Sodium Level 133 136-145 mmol/L Potassium Level 4.2 3.5-5.1 mmol/L Chloride Level 99 98-107 mmol/L Carbon Dioxide Level 24 21-32 mmol/L Anion Gap 10.0 3-11 mmol/L Blood Urea Nitrogen 82 7-18 mg/dl Creatinine 3.30 0.60-1.20 mg/dl Est Creatinine Clear Calc Drug Dose 14.2 ml/min Estimated GFR () 16.3 Estimated GFR (Non- 14.0 BUN/Creatinine Ratio 24.7 10-20 Random Glucose 102 70-99 mg/dl Calcium Level 9.1 8.5-10.1 mg/dl Total Bilirubin 0.4 0.2-1 mg/dl Aspartate Amino Transf (AST/SGOT) 22 15-37 U/L Alanine Aminotransferase (ALT/SGPT) 23 12-78 U/L Alkaline Phosphatase 83 45-117 U/L Total Protein 7.9 6.4-8.2 gm/dl Albumin 3.7 3.4-5.0 gm/dl Globulin 4.2 2.5-4.0 gm/dl Albumin/Globulin Ratio 0.9 0.9-2 Urine Color YELLOW Urine Appearance CLOUDY CLEAR Urine pH 5.5 4.5-7.5 Urine Specific [place] 1.015 1.000-1.030 Urine Protein NEG NEG Urine Glucose (UA) NEG NEG Urine Ketones NEG NEG Urine Occult Blood NEG NEG Urine Nitrite NEG NEG Urine Bilirubin NEG NEG Urine Urobilinogen NEG NEG Urine Leukocyte Esterase NEG NEG Urine WBC (Auto) 5-10 0-5 /hpf Urine RBC (Auto) 0-4 0-4 /hpf Urine Hyaline Casts (Auto) 1-5 0-5 /lpf Urine Epithelial Cells (Auto) >30 0-5 /lpf Urine Bacteria (Auto) 1+ NEG Microbiology Results 02/14/18 Urine Culture, Received Pending Impression Assessment and Plan Pt is 62 y/o F with PMH CKD III, migraine FLORES, Meniere's, hypothyroidism, HTN presented to ER referred by PCP for worsening renal functions. ACUTE KIDNEY INJURY ON CKD III DEHYDRATION Probable secondary to lisinopril/thiazide and poor oral intake. Patient with chronic poor fluid intake (drinks total 2 cups of fluids daily). Creatinine: 3.3. (Baseline 1.3-1.5). Positive orthostatics from sitting to standing in ER (patient denies dizziness with orthostatics). -Pending urine culture -Renal artery duplex pending -Retroperitoneal renal ultrasound r/o obstruction pending -Hold lisinopril, Dyazide -IVF -Monitor renal functions, magnesium and phosphorus labs in a.m. -Avoid nephrotoxic agents when possible -Consider nephrology consult if no improvement LEUKOCYTOSIS WBC: 13. Patient afebrile, UA: Appears contaminated. Denies urinary symptoms. Denies CP, SOB, or cough -Pending urine culture -Pending chest x-ray -Hold on antibiotics at this time -CBC in a.m. HTN Currently stable -Monitor -Hold lisinopril, Dyazide HYPOTHYROIDISM -Pending TSH -Continue levothyroxine H/O CHRONIC NECK PAIN -avoid NSAIDs -continue tramadol prn DVT Prophylaxis -heparin SQ Admit medsurg Full Code as per discussion with pt Follows with Dr Epps for routine care Pt was seen with Dr Gallegos. See addendum Resuscitation Status VTE Prophylaxis Will order VTE Prophylaxis: Yes Note ATTENDING ADDENDUM Record reviewed. Patient interviewed and examined. Care coordinated with Leesa Duarte PA-C. Please refer to her documentation for patient's history. Briefly, 62-year-old female taking lisinopril and diuretics for hypertension. Refer to ED for elevated creatinine EXAM: General- no distress Lungs- clear to auscultation; no respiratory distress Cardiovascular- RRR; no murmur or gallop appreciated; no JVD; no pretibial edema Abdomen- + bowel sounds, soft, nontender Extremities- no cyanosis; no calf tenderness Neuro- alert, oriented Skin- warm & dry DATA: Serum creatinine 3.3. Potassium 4.2. Other lab studies as noted. EKG performed at 1656 reviewed and demonstrated baseline artifact, normal sinus rhythm at 97/ minute, ST depression in V6. ASSESSMENT AND PLAN: Acute kidney injury. Hold diuretics and lisinopril. Avoid NSAIDs. Check renal ultrasound. Check duplex renal arteries. Please refer to RAFFI Her's documentation for discussion of other issues. Lucas Gallegos MD . Additional Copies To Lucas Epps III, M.D.
[2018-02-14 19:28] VITALS: Ht 160 cm; Wt 62.1 kg
--- NOTE | 2018-02-14 19:59 | DIAGNOSTIC IMAGING REPORT ---
CHEST 2 VIEWS ROUTINE HISTORY: leukocytosis COMPARISON: Chest 08/03/2017. FINDINGS: The lungs are clear. Cardiac silhouette is normal in size. No pleural effusions. No pneumothorax. Cervical spinal fusion hardware is again noted. IMPRESSION: No acute process. Electronically signed by: Estevan Royal M.D. 02/14/2018 7:58 PM Dictated Date/Time: 02/14/2018 7:57 PM
[2018-02-14 20:11] LABS: PHOSPHORUS 5.2 mg/dl (2.5-4.9)
[2018-02-14 20:16] VITALS: O2SAT 100
[2018-02-14 20:34] VITALS: BP 129/83; PULSE 106; TEMP 36.8; O2SAT 99
[2018-02-14] MEDS: SODIUM CHLORIDE 0.9% 1000ML 1,000 ML IV SCH (20:57)
[2018-02-14] MEDS: HEPARIN SOD 5000 UNIT/0.5 ML CARP SQ SCH (22:00)
--- NOTE | 2018-02-14 23:10 | DIAGNOSTIC IMAGING REPORT ---
DUPLEX RENAL ARTERY CLINICAL HISTORY: Acute kidney injury. COMPARISON STUDY: None. FINDINGS: The peak systolic velocity within the right renal artery was 115 cm/s proximally and the left renal artery was 85 cm/s proximally. Resistive indices of the bilateral renal arcuate arteries are within normal limits and measure less than 0.75. Bilateral renal veins are patent. IMPRESSION: No evidence for renal artery stenosis. Electronically signed by: Estevan Royal M.D. 02/14/2018 11:09 PM Dictated Date/Time: 02/14/2018 11:08 PM
--- NOTE | 2018-02-14 23:12 | DIAGNOSTIC IMAGING REPORT ---
RENAL ULTRASOUND HISTORY: Acute kidney injury R/O obstruction COMPARISON: None. FINDINGS: Right kidney: 9.6 cm. No hydronephrosis. Normal cortical thickness. Slight increased cortical echogenicity. Left kidney: 10.8 cm. No hydronephrosis. Mild cortical thinning/scarring with slight increased cortical echogenicity. Bladder: Not well distended. No definite bladder wall thickening. Only the left ureteral jet was identified at this time. IMPRESSION: 1. No hydronephrosis. 2. Slight increase in the cortical echogenicity within the kidneys suggestive of medical renal disease Electronically signed by: Estevan Royal M.D. 02/14/2018 11:10 PM Dictated Date/Time: 02/14/2018 11:09 PM
[2018-02-14 23:20] VITALS: BP_SYST 102; BP_SYST 106; BP_SYST 116; BP_DIAS 65; BP_DIAS 69; BP_DIAS 73; PULSE 84; PULSE 89; PULSE 91; TEMP 36.6; O2SAT 100
[2018-02-15] MEDS: HEPARIN SOD 5000 UNIT/0.5 ML CARP SQ SCH ×3 (06:00→21:21)
[2018-02-15] MEDS: LEVOTHYROXINE 25 MCG TAB PO SCH (06:17)
[2018-02-15 07:06] VITALS: BP 111/73; PULSE 61; TEMP 36.4; O2SAT 97
[2018-02-15] MEDS: SODIUM CHLORIDE 0.9% 1000ML 1,000 ML IV SCH ×2 (07:09→16:59)
[2018-02-15 07:23] LABS: BASO % 0.5 %; BASO ABS # 0.04 K/uL (0-0.2); EOS % 1.1 %; EOS ABS # 0.09 K/uL (0-0.5); HEMATOCRIT 30.7 % (37-47); HEMOGLOBIN 10.4 g/dL (12.0-16.0); IG# 0.02 K/uL (0.00-0.02); LYMPH % 38.5 %; LYMPH ABS # 3.13 K/uL (1.2-3.4); MEAN CELL VOLUME 86.7 fL (80-100); MEAN CORPUSCULAR HEMOGLOBIN 29.4 pg (25-34); MEAN CORPUSCULAR HGB CONC 33.9 g/dl (32-36); MEAN PLATELET VOLUME 10.2 fL (7.4-10.4); MONO % 5.2 %; MONO ABS # 0.42 K/uL (0.11-0.59); NEUT % 54.5 %; NEUT ABS # 4.42 K/uL (1.4-6.5); PLATELET COUNT 170 K/uL (130-400); RED CELL DISTRIBUTION WIDTH CV 12.4 % (11.5-14.5); RED CELL DISTRIBUTION WIDTH SD 40.1 fL (36.4-46.3); WHITE BLOOD COUNT 8.12 K/uL (4.8-10.8)
[2018-02-15] MEDS: CHOLECALCIFEROL 1000 INTER.UNIT TAB PO SCH (07:41)
[2018-02-15 07:46] LABS: CALCIUM 7.5 mg/dl (8.5-10.1); CREATININE 2.62 mg/dl (0.60-1.20); PHOSPHORUS 4.7 mg/dl (2.5-4.9); POTASSIUM 4.1 mmol/L (3.5-5.1)
[2018-02-15] MEDS ORDERED: ESTROGENS, CONJUGATED 0.3 MG TAB PO SCH (09:00)
[2018-02-15 14:32] VITALS: BP 137/81; PULSE 78; TEMP 35.8; O2SAT 98
--- NOTE | 2018-02-15 20:27 | Progress Note ---
Medicine Progress Note Date & Time of Visit: Feb 15, 2018 at 16:40 . Subjective CC: Follow-up visit for acute kidney injury. HPI: Feels better. Orthostatic lightheadedness resolved. ROS: General- no fever, no chills Resp- no cough; no shortness of breath Cardiac- no chest pain, no edema GI- no nausea, no vomiting, no diarrhea - no dysuria, no difficulty voiding . Objective Last 8 Hrs Date Time Temp Pulse Resp B/P (MAP) Pulse Ox O2 Delivery O2 Flow Rate FiO2 02/15/18 15:53 Room Air 02/15/18 14:32 35.8 78 20 137/81 (99) 98 Room Air Physical Exam: General- no distress Lungs- clear to auscultation; no respiratory distress Cardiovascular- RRR; no murmur; no gallop; no JVD; no pretibial edema Abdomen- + bowel sounds, soft, nontender Extremities- no cyanosis; no calf tenderness Neuro- alert, oriented Skin- warm & dry . Laboratory Results: Last 24 Hours Test 02/15/18 06:59 White Blood Count 8.12 K/uL Red Blood Count 3.54 M/uL Hemoglobin 10.4 g/dL Hematocrit 30.7 % Mean Corpuscular Volume 86.7 fL Mean Corpuscular Hemoglobin 29.4 pg Mean Corpuscular Hemoglobin Concent 33.9 g/dl Platelet Count 170 K/uL Mean Platelet Volume 10.2 fL Neutrophils (%) (Auto) 54.5 % Lymphocytes (%) (Auto) 38.5 % Monocytes (%) (Auto) 5.2 % Eosinophils (%) (Auto) 1.1 % Basophils (%) (Auto) 0.5 % Neutrophils # (Auto) 4.42 K/uL Lymphocytes # (Auto) 3.13 K/uL Monocytes # (Auto) 0.42 K/uL Eosinophils # (Auto) 0.09 K/uL Basophils # (Auto) 0.04 K/uL RDW Standard Deviation 40.1 fL RDW Coefficient of Variation 12.4 % Immature Granulocyte % (Auto) 0.2 % Immature Granulocyte # (Auto) 0.02 K/uL Sodium Level 137 mmol/L Potassium Level 4.1 mmol/L Chloride Level 108 mmol/L Carbon Dioxide Level 20 mmol/L Anion Gap 9.0 mmol/L Blood Urea Nitrogen 64 mg/dl Creatinine 2.62 mg/dl Est Creatinine Clear Calc Drug Dose 17.9 ml/min Estimated GFR () 21.5 Estimated GFR (Non- 18.6 BUN/Creatinine Ratio 24.4 Random Glucose 93 mg/dl Calcium Level 7.5 mg/dl Phosphorus Level 4.7 mg/dl Magnesium Level 2.3 mg/dl Assessment & Plan ACUTE KIDNEY INJURY Creatinine at time of admission was 3.3. Triamterene/HCTZ and lisinopril held. Renal US negative for obstruction. Duplex renal arteries did not show any evidence of renal artery stenosis. Receiving IV fluids. Creatinine today = 2.62. HYPERTENSION Triamterene/HCTZ and lisinopril held for WYATT. BP this morning 111/73. Follow. HYPOTHYROIDISM TSH 4.970. Increase levothyroxine to 50 mcg daily. VTE PROPHYLAXIS SQ heparin. Ambulate. DISPOSITION Expected discharge to home. Family Medicine follow-up with Dr. Epps. . Current Inpatient Medications: Current Inpatient Medications Medications (Trade) Dose Ordered Sig/Aries Route Start Time Stop Time Status Last Admin Dose Admin Acetaminophen (Tylenol Tab) 650 mg Q4H PRN PO 02/14/18 18:45 03/16/18 18:44 Polyethylene (Miralax Powder Packet) 17 gm DAILY PRN PO 02/14/18 18:45 03/16/18 18:44 Ondansetron HCl (Zofran Inj) 4 mg Q6H PRN IV 02/14/18 18:45 03/16/18 18:44 Sodium Chloride 1,000 ml @ 100 mls/hr Q10H IV 02/14/18 21:00 03/16/18 18:44 02/15/18 16:59 100 MLS/HR Cholecalciferol (Vitamin D Tab) 2,000 inter.unit DAILY PO 02/15/18 08:00 03/17/18 08:59 02/15/18 07:41 2,000 INTER.UNIT Estrogens Conjugated (Premarin Tab) 0.9 mg Q2D@0900 PO 02/15/18 09:00 03/17/18 08:59 02/15/18 07:41 0.9 MG Levothyroxine Sodium (Synthroid Tab) 25 mcg DAILYBB PO 02/15/18 06:30 03/17/18 06:59 02/15/18 06:17 25 MCG Tramadol HCl (Ultram Tab) 50 mg Q6 PRN PO 02/14/18 19:00 03/16/18 18:59 Heparin Sodium (Porcine) (Heparin Sq 5000 Unit/0.5ml) 5,000 unit Q8 SQ 02/14/18 22:00 03/16/18 18:44
[2018-02-15 23:26] VITALS: BP 99/61; PULSE 69; TEMP 36.9; O2SAT 97
[2018-02-16] MEDS: SODIUM CHLORIDE 0.9% 1000ML 1,000 ML IV SCH ×2 (02:47→12:42)
[2018-02-16] MEDS: LEVOTHYROXINE 25 MCG TAB PO SCH (06:32)
[2018-02-16] MEDS: HEPARIN SOD 5000 UNIT/0.5 ML CARP SQ SCH ×2 (06:33→14:30)
[2018-02-16 07:08] LABS: HEMATOCRIT 31.5 % (37-47); HEMOGLOBIN 10.8 g/dL (12.0-16.0); MEAN CELL VOLUME 86.5 fL (80-100); MEAN CORPUSCULAR HEMOGLOBIN 29.7 pg (25-34); MEAN CORPUSCULAR HGB CONC 34.3 g/dl (32-36); MEAN PLATELET VOLUME 10.4 fL (7.4-10.4); PLATELET COUNT 179 K/uL (130-400); RED CELL DISTRIBUTION WIDTH CV 12.2 % (11.5-14.5); RED CELL DISTRIBUTION WIDTH SD 38.9 fL (36.4-46.3); WHITE BLOOD COUNT 10.63 K/uL (4.8-10.8)
[2018-02-16 07:12] VITALS: BP 134/74; PULSE 66; TEMP 36.8; O2SAT 98
[2018-02-16] MEDS: CHOLECALCIFEROL 1000 INTER.UNIT TAB PO SCH (07:40)
[2018-02-16 07:57] LABS: CALCIUM 7.6 mg/dl (8.5-10.1); CREATININE 2.16 mg/dl (0.60-1.20); POTASSIUM 3.5 mmol/L (3.5-5.1)
[2018-02-16 14:50] VITALS: BP_SYST 147; BP_SYST 150; BP_DIAS 80; BP_DIAS 81; PULSE 70; TEMP 36.6; O2SAT 100
--- NOTE | 2018-02-16 14:55 | Progress Note ---
Medicine Progress Note Date & Time of Visit: Feb 16, 2018 at 14:55 . Subjective Doing well. No chest pain, cough, shortness of breath, nausea, vomiting, or other concerns. Good oral fluid intake. Ambulating. Would like to go home. . Objective Last 8 Hrs Date Time Temp Pulse Resp B/P (MAP) Pulse Ox O2 Delivery O2 Flow Rate FiO2 02/16/18 14:50 36.6 70 20 150/80 (103) 100 Room Air 147/81 (103) 02/16/18 08:00 Room Air 02/16/18 07:12 36.8 66 18 134/74 (94) 98 Room Air Physical Exam: General- no distress Lungs- clear to auscultation; no respiratory distress Cardiovascular- RRR; no murmur; no gallop; no JVD; no pretibial edema Abdomen- + bowel sounds, soft, nontender Extremities- no cyanosis; no calf tenderness Neuro- alert, oriented Skin- warm & dry . Laboratory Results: Last 24 Hours Test 02/16/18 06:55 White Blood Count 10.63 K/uL Red Blood Count 3.64 M/uL Hemoglobin 10.8 g/dL Hematocrit 31.5 % Mean Corpuscular Volume 86.5 fL Mean Corpuscular Hemoglobin 29.7 pg Mean Corpuscular Hemoglobin Concent 34.3 g/dl RDW Standard Deviation 38.9 fL RDW Coefficient of Variation 12.2 % Platelet Count 179 K/uL Mean Platelet Volume 10.4 fL Sodium Level 138 mmol/L Potassium Level 3.5 mmol/L Chloride Level 109 mmol/L Carbon Dioxide Level 20 mmol/L Anion Gap 9.0 mmol/L Blood Urea Nitrogen 42 mg/dl Creatinine 2.16 mg/dl Est Creatinine Clear Calc Drug Dose 21.8 ml/min Estimated GFR () 27.2 Estimated GFR (Non- 23.4 BUN/Creatinine Ratio 19.2 Random Glucose 91 mg/dl Calcium Level 7.6 mg/dl Assessment & Plan ACUTE KIDNEY INJURY Patient was experiencing weakness and orthostatic lightheadedness. Labs done in clinic demonstrated creatinine of 3.2. Patient was referred to the ED for evaluation. Creatinine at time of admission was 3.3, compared to baseline creatinine 1.3- 1.5. Patient was taking triamterene/hydrochlorothiazide (although she has been instructed to stop it on 02/09/18). She had recently been started on lisinopril. Triamterene/HCTZ and lisinopril held. Received IV fluids. Renal US negative for obstruction. Duplex renal arteries did not show any evidence of renal artery stenosis. Creatinine today = 2.16. IV fluids discontinued. Patient encouraged to maintain adequate oral fluid intake. Advised to avoid nonsteroidal anti-inflammatory drugs. Follow. HYPERTENSION Triamterene/HCTZ and lisinopril discontinued for WYATT. BP last night was 99/61; BP this morning 134/74. Follow. HYPOTHYROIDISM TSH slightly elevated at 4.970. Continue current dose of levothyroxine of 25 mcg daily. Check repeat TSH in clinic and adjust dosage if TSH remains elevated. VTE PROPHYLAXIS SQ heparin. Ambulate. DISPOSITION Discharge to home. Family Medicine follow-up with Dr. Epps. . Current Inpatient Medications: Current Inpatient Medications Medications (Trade) Dose Ordered Sig/Aries Route Start Time Stop Time Status Last Admin Dose Admin Acetaminophen (Tylenol Tab) 650 mg Q4H PRN PO 02/14/18 18:45 03/16/18 18:44 Polyethylene (Miralax Powder Packet) 17 gm DAILY PRN PO 02/14/18 18:45 03/16/18 18:44 Ondansetron HCl (Zofran Inj) 4 mg Q6H PRN IV 02/14/18 18:45 03/16/18 18:44 Sodium Chloride 1,000 ml @ 100 mls/hr Q10H IV 02/14/18 21:00 03/16/18 18:44 02/16/18 12:42 100 MLS/HR Cholecalciferol (Vitamin D Tab) 2,000 inter.unit DAILY PO 02/15/18 08:00 03/17/18 08:59 02/16/18 07:40 2,000 INTER.UNIT Estrogens Conjugated (Premarin Tab) 0.9 mg Q2D@0900 PO 02/15/18 09:00 03/17/18 08:59 02/15/18 07:41 0.9 MG Levothyroxine Sodium (Synthroid Tab) 25 mcg DAILYBB PO 02/15/18 06:30 03/17/18 06:59 02/16/18 06:32 25 MCG Tramadol HCl (Ultram Tab) 50 mg Q6 PRN PO 02/14/18 19:00 03/16/18 18:59 Heparin Sodium (Porcine) (Heparin Sq 5000 Unit/0.5ml) 5,000 unit Q8 SQ 02/14/18 22:00 03/16/18 18:44
--- NOTE | 2018-02-16 15:08 | Discharge Instructions ---
Discharge Instructions Date of Service Feb 16, 2018. Admission Reason for Admission: abnormal kidney function . Discharge Discharge Diagnosis / Problem: abnormal kidney function Discharge Goals Goal(s): Improve function Activity Recommendations Activity Limitations: resume your previous activity . Instructions / Follow-Up Instructions / Follow-Up APPOINTMENTS: FAMILY MEDICINE 02/23/2018 2:00 PM Lucas Epps III, MD OTHER INSTRUCTIONS: Your kidneys were not working very well, probably because of a combination of your medications and not drinking enough fluid. Stop lisinopril (Prinivil or Zestril). Stop triamterene / HCTZ (Dyazide). Don't use any pain medications like ibuprofen (Advil or Motrin) or naproxen ( Aleve) because they can cause kidney problems. Drink plenty of fluids- at least 6 cups a day. Seek medical attention if you have: * temperature above 101 * chest pain or trouble breathing * abdominal pain, nausea, vomiting * diarrhea, dark stools or bloody stools * any unanswered questions or concerns Call 911 if symptoms are severe. Call if you have any questions or problems. My cell # is [phone]. You can also reach a [facility] hospitalist on duty at [facility] 24 hours a day by calling [phone]. Please take good care of yourself. Lucas Gallegos . Current Hospital Diet Patient's current hospital diet: Renal Diet Discharge Diet Recommended Diet: AHA Diet (Heart Healthy) Pending Studies Studies pending at discharge: no Work Instructions Return To Work: after follow-up Additional Instructions: Gabby Velásquez has been absent from work since 02/14/18 because of illness. Return to work date to be determined after recheck. Medical Emergencies . Who to Call and When: Medical Emergencies: If at any time you feel your situation is an emergency, please call 911 immediately. . Non-Emergent Contact Non-Emergency issues call your: Primary Care Provider, Hospital Doctor . . "Provider Documentation" section prepared by Lucas Gallegos. .
[2018-02-16 15:12] VITALS: BP 147/81; PULSE 70; TEMP 36.6; O2SAT 100
--- NOTE | 2018-02-18 00:21 | Discharge Summary ---
Discharge Summary Date of Service Feb 18, 2018. Discharge Summary Admission Date: Feb 14, 2018 at 18:40 Discharge Date: Feb 16, 2018 Discharge Disposition: Home Principal Diagnosis: acute kidney injury . Secondary Diagnoses/Problems: Chronic and Resolved Medical Problems: (1) Arthritis Status: Chronic (2) Benign hypertension Status: Chronic (3) Carpal tunnel syndrome Status: Resolved (4) cervical spine degeneration Status: Chronic (5) Chest pain Status: Resolved (6) CKD (chronic kidney disease), stage III Status: Chronic (7) Hypothyroidism Status: Chronic (8) Hysterectomy Status: Resolved (9) Mammography normal Status: Resolved (10) MENIERE'S DISEASE, UNSPECIFIED Status: Chronic (11) Migraine Status: Chronic (12) spine fusion - cervical Status: Resolved Surgical Problems: (1) History of carpal tunnel surgery Status: Resolved (2) History of hysterectomy Status: Resolved . Procedures: IV fluids renal ultrasound duplex renal arteries . Pending Studies/Follow-Up: Please check basic metabolic profile in clinic. . Medication Reconciliation Continued Medications: Baclofen (Lioresal) 10 Mg Tab 10 MG PO TID, TAB Cholecalciferol (Vitamin D 1000 Unit) 1,000 Unit Cap 2000 INTER.UNIT PO DAILY, CAP Estrogens, Conjugated (Premarin) 0.9 Mg Tab 0.9 MG PO Q2D Fexofenadine Hcl (Regla) 180 Mg Tab 180 MG PO DAILY Levothyroxine Sodium (Synthroid) 25 Mcg Tab 25 MCG PO DAILY TAKE THIS MEDICATION AT LEAST 30 MINUTES BEFORE BREAKFAST OR ANY OTHER MEDICATIONBS Meclizine Hcl (Meclizine Hcl) 25 Mg Tab 25 MG PO TID PRN for Dizziness or Vertigo Ondasetron Odt (Zofran Odt) 4 Mg Tab 4 MG SL Q8 for Nausea, #6 TAB Tramadol (Ultram) 50 Mg Tab 50 MG PO Q6 PRN for Pain, TAB Discontinued Medications: Lisinopril (Zestril) 5 Mg Tab 5 MG PO DAILY, TAB Triamterene/Hctz (Dyazide 37.5MG/25MG) Cap 1 CAP PO DAILY for 30 Days, #30 CAP 3 Refills Admission Information HPI (per Admitting provider): Pt is 62 y/o F with PMH CKD III, migraine FLORES, Meniere's, hypothyroidism, HTN presented to ER referred by PCP for worsening renal functions. Patient reports last week was having some dizziness aggravated with standing, denies vertigo type symptoms. She had nausea and vomited once last week, no further vomiting since. She was seen at PCPs office and had outpatient labs done revealing elevated creatinine level. Denies NSAID use for past month. Taking triamterene/ hctz. Was started on lisinopril on 01/28/18. Drinks total 2 cups fluids a day ( soda or tea). States some intermittent low back pain past week described as aching, non-radiating. Denies LE pain or paresthesias, saddle paresthesias, loss control of bowel/bladder. urinates 2-3 times a day. Denies hx kidney stones. Denies fever/chills, diaphoresis, D/C, FLORES, syncope, vision changes, neck pain, CP, SOB, orthopnea, palpitations, cough, sore throat, choking, otalgia, rhinorrhea, abdominal pain, paresthesias, weakness, extremity weakness , extremity edema, rashes, urinary symptoms, weight changes. . Physical Exam (per Admitting): General Appearance: WD/WN, no apparent distress Head: normocephalic, atraumatic Eyes: normal inspection, PERRL, EOMI, sclerae normal ENT: hearing grossly normal, pharynx normal, + pertinent finding (mucous membranes mildly dry) Neck: supple, trachea midline Respiratory/Chest: lungs clear, normal breath sounds, no respiratory distress Cardiovascular: regular rate, rhythm, normal peripheral pulses Abdomen/GI: normal bowel sounds, non tender, soft Back: no CVA tenderness Extremities/Musculoskelatal: normal capillary refill, no pedal edema, normal range of motion, non-tender Neurologic/Psych: alert, normal mood/affect, normal reflexes Skin: warm/dry Hospital Course ACUTE KIDNEY INJURY Patient was experiencing weakness and orthostatic lightheadedness. Labs done in clinic demonstrated creatinine of 3.2. Patient was referred to the ED for evaluation. Creatinine at time of admission was 3.3, compared to baseline creatinine 1.3- 1.5. Patient was taking triamterene/hydrochlorothiazide (although she has been instructed to stop it on 02/09/18). She had recently been started on lisinopril. Triamterene/HCTZ and lisinopril held. Received IV fluids. Renal US negative for obstruction. Duplex renal arteries did not show any evidence of renal artery stenosis. Creatinine day of discharge was down to 2.16. IV fluids discontinued. Patient encouraged to maintain adequate oral fluid intake. Advised to avoid nonsteroidal anti-inflammatory drugs. Follow. HYPERTENSION Triamterene/HCTZ and lisinopril discontinued for WYATT. BP last night of 02/17 was 99/61; BP morning of discharge was 134/74. Re-assess blood pressure in clinic and resume antihypertensive therapy if warranted. HYPOTHYROIDISM TSH slightly elevated at 4.970. Continue current dose of levothyroxine of 25 mcg daily. Check repeat TSH in clinic and adjust dosage if TSH remains elevated. VTE PROPHYLAXIS SQ heparin. Ambulate. DISPOSITION Discharged to home. Family Medicine follow-up with Dr. Epps. . Total time spent on discharge = 35 min. This includes examination of the patient, discharge planning, medication reconciliation, and communication with other providers. . Discharge Instructions Discharge Instructions Date of Service Feb 16, 2018. Admission Reason for Admission: abnormal kidney function . Discharge Discharge Diagnosis / Problem: abnormal kidney function Discharge Goals Goal(s): Improve function Activity Recommendations Activity Limitations: resume your previous activity . Instructions / Follow-Up Instructions / Follow-Up APPOINTMENTS: FAMILY MEDICINE 02/23/2018 2:00 PM Lucas Epps III, MD OTHER INSTRUCTIONS: Your kidneys were not working very well, probably because of a combination of your medications and not drinking enough fluid. Stop lisinopril (Prinivil or Zestril). Stop triamterene / HCTZ (Dyazide). Don't use any pain medications like ibuprofen (Advil or Motrin) or naproxen ( Aleve) because they can cause kidney problems. Drink plenty of fluids- at least 6 cups a day. Seek medical attention if you have: * temperature above 101 * chest pain or trouble breathing * abdominal pain, nausea, vomiting * diarrhea, dark stools or bloody stools * any unanswered questions or concerns Call 911 if symptoms are severe. Call if you have any questions or problems. My cell # is [phone]. You can also reach a [facility] hospitalist on duty at [facility] 24 hours a day by calling [phone]. Please take good care of yourself. Lucas Gallegos . Current Hospital Diet Patient's current hospital diet: Renal Diet Discharge Diet Recommended Diet: AHA Diet (Heart Healthy) Pending Studies Studies pending at discharge: no Work Instructions Return To Work: after follow-up Additional Instructions: Gabby Velásquez has been absent from work since 02/14/18 because of illness. Return to work date to be determined after recheck. Medical Emergencies . Who to Call and When: Medical Emergencies: If at any time you feel your situation is an emergency, please call 911 immediately. . Non-Emergent Contact Non-Emergency issues call your: Primary Care Provider, Hospital Doctor . . "Provider Documentation" section prepared by Lucas Gallegos. ..
== END 2018-02-16 15:50 | disposition home or self-care (01) | DRG 684 ==
LOC: C.EDB 16:30 → C.MS4W 18:40 → ENRESERV 19:47
PROVIDERS: ADMIT Hospitalist; ATTEND Hospitalist
DX: N17.9 Acute kidney failure, unspecified (principal); I12.9 Hypertensive chronic kidney disease with stage 1 through stage 4 chronic kidney disease, or unspecified chronic kidney disease; N18.3 Chronic kidney disease, stage 3 (moderate); E86.0 Dehydration; E03.9 Hypothyroidism, unspecified; Z79.899 Other long term (current) drug therapy; Z88.0 Allergy status to penicillin; Z88.1 Allergy status to other antibiotic agents; Z88.2 Allergy status to sulfonamides

== ENCOUNTER 2024-09-13 07:00 | Observation (INO) ==
--- NOTE | 2024-09-13 07:17 | Emergency Department Note ---
Impression & Plan Angioedema, Cough ED Provider Note Provider: Jalil Gar MD CHIEF COMPLAINT: Lip swelling, reaction HISTORY OF PRESENT ILLNESS: Patient is a 69-year-old female history of CKD, hypertension, hypothyroidism, and a recent cough presenting here today complaining of allergic type reaction. Patient states he went to bed okay last night. Has recently seen urgent care on Wednesday and her doctor yesterday for a cough that been present for about a week. Was recently prescribed some Tessalon Perles then yesterday doxycycline prednisone and a inhaler. Woke up this morning around 6 AM with swelling noted to upper lip. No difficulty swallowing or breathing. No tongue swelling or rash or GI upset reported. noted as well swelling of this upper lip which is never happened before. Came here for evaluation after taking small mount of children's Benadryl prior to arrival. Patient has been on lisinopril for some time. Reports she had negative COVID flu testing in the outpatient setting recently. PAST MEDICAL HISTORY: As noted above MEDICATIONS: Reviewed home medications SOCIAL HISTORY: PHYSICAL EXAM: GENERAL: alert and oriented in no acute distress on stretcher Head: normocephalic and atraumatic EYES: No injection, discharge or icterus. EOMI. NECK: Trachea midline. Supple with good range of motion ENT: Mucous membranes pink and moist. Pharynx without erythema or exudate. LUNGS: Airway patent. No retractions. Breath sounds clear with good air entry bilaterally. HEART: Regular rate and rhythm. No chest wall tenderness ABDOMEN: Soft and non-tender, without guarding or rebound. SKIN: Acyanotic, warm, dry, without rashes EXTREMITIES: Without swelling, tenderness or deformity NEUROLOGICAL: No focal deficits. No aphasia. No facial droop or slurred speech. Ambulatory. EK bpm sinus tachycardia. No PVC or PAC. No acute ST segment elevation or depression with a QTc of 446. CONTINUOUS CARDIAC MONITORING: was ordered and showed a heart rate of 100s-120s bpm in sinus tachycardia Patient's laboratory studies and imaging reviewed. Differential includes Allergic reaction, anaphylaxis, urticaria, Newman-Héctor syndrome, toxic epidermal necrolysis, erythema multiforme, contact dermatitis, cellulitis, as well as other pathologies. IMPRESSION/MEDICAL DECISION MAKING: Patient reports allergic type reaction. Question given the isolated upper lip swelling if this is more of an angioedema type situation. No evidence of tongue elevation I doubt a deep neck space infection. Does not appear to have impending airway collapse and no stridor. No GI upset or other rashes reported. Has been on prednisone before. Doxycycline new but appears to been on that last summer as well from medication records. Question of this again is more angioedema related to her lisinopril/DINA inhibitor. Given some Benadryl steroid. Chest x-ray obtained and basic blood work in reference to tryptase was sent. Somewhat anxious and tachycardic upon arrival. 1 view chest x-ray on my review and interpretation without evidence of pulm edema, effusion, pneumothorax, or pneumonia. No significant anemia or leukocytosis. No significant electrolyte abnormality or severe renal dysfunction. Tryptase again sent out for further outpatient evaluation. For further monitoring given the what appears to be angioedema swelling while not worsening, will bring in for further observation. Chest x-ray here reassuring without findings of pneumonia. Again reports she has had outpatient negative flu and COVID testing. DIAGNOSIS: Angioedema, cough DISPOSITION: Hospitalist will evaluate Patient was agreeable with this plan. Past Med/Surg History Problem List (Updated 09/13/24 @ 13:43 by Jalil Gar M.D.) Cough (Acute) Angioedema (Acute) Stress incontinence History of hematuria Dysuria Encounter for pre-operative examination WYATT (acute kidney injury) (Acute) CKD (chronic kidney disease), stage III Medical History Arthritis (04/24/13) Benign hypertension (04/24/13) Carpal tunnel syndrome (04/24/13) Chest pain (04/24/13) Gardnerella infection Asymptomatic microscopic hematuria Normal mammography (04/24/13) Migraine (04/24/13) Proteinuria Urinary urgency Cervical spine degeneration (04/24/13) HTN (hypertension) Hematuria Meniere disease Osteoarthritis Hypothyroidism Surgical History History of colonoscopy History of hysterectomy TOTAL History of surgery WRIST Fusion of spine CERVICAL Family History Mother Cardiac disorder Hypertension Social History Smoking Status: Never smoker Second Hand Exposure: No; Do You Dip or Chew Tobacco: No; Hx Alcohol Use: No Hx Substance Use: No Preferred Language: Montenegrin Communication Ability: Effective Burr Bench Hand Required: No Beliefs That Will Affect Care: None Current Living Situation: Spouse Feels Safe at Home: Yes Assistive Devices: Denture - Upper and Glasses Allergies Allergies Allergy/AdvReac Type Severity Reaction Status Date / Time DINA Inhibitors Allergy Severe angioedema Verified 09/13/24 09:12 Sulfa (Sulfonamide Allergy Severe SHOCK Verified 01/13/24 11:34 Antibiotics) Penicillins Allergy Intermediate SHOCK Verified 01/13/24 11:34 cephalexin Allergy Unknown Gastrointestinal Verified 01/13/24 11:34 Upset doxycycline Allergy Unknown angioedema Verified 09/13/24 09:43 erythromycin base Allergy Unknown Gastrointestinal Verified 01/13/24 11:34 Upset fluconazole Allergy Unknown UNSURE Verified 01/13/24 11:34 Home Meds Home Medications Medication Instructions Recorded Confirmed baclofen 10 mg tablet 10 mg PO TID PRN Muscle Spasm 05/17/18 09/13/24 cholecalciferol (vitamin D3) 50 2,000 unit PO QAM 05/17/18 09/13/24 mcg (2,000 unit) capsule (Vitamin D3) fexofenadine 180 mg tablet 180 mg PO QAM 05/17/18 09/13/24 meclizine 25 mg tablet 25 mg PO TID PRN Dizziness 05/17/18 09/13/24 lisinopril 10 mg tablet 1 tab PO DAILY 05/19/18 09/13/24 benzonatate 100 mg capsule 100 mg PO TID PRN Cough 09/13/24 09/13/24 budesonide-formoterol HFA 160 1 puff inhalation BID 09/13/24 09/13/24 mcg-4.5 mcg/actuation aerosol inhaler conjugated estrogens 0.45 mg 0.225 mg PO DAILY 09/13/24 09/13/24 tablet (Premarin) levothyroxine 75 mcg tablet 75 mcg PO DAILY@0630 09/13/24 09/13/24 nortriptyline 25 mg capsule 50 mg PO HS 09/13/24 09/13/24 prednisone 10 mg tablet 10 mg PO DIRECTED 09/13/24 09/13/24 Results & Data (ED) Vital Signs Vital Signs - 24 hr 09/13/24 07:00 09/13/24 07:00 09/13/24 08:06 Pulse Rate 129 H 105 H Pulse Rate from SpO2 Sensor 106 H Respiratory Rate 18 22 Blood Pressure 132/76 132/84 Blood Pressure Mean 94 100 Pulse Oximetry 100 94 Oxygen Delivery Method Room Air Sepsis Recent Fever Within 48 Hours No Sepsis New/Unexplained Change in Mental Status N/A Sepsis Action Taken by Nursing No Action Required 09/13/24 08:10 Pulse Rate 105 H Pulse Rate from SpO2 Sensor Respiratory Rate Blood Pressure Blood Pressure Mean Pulse Oximetry Oxygen Delivery Method Sepsis Recent Fever Within 48 Hours Sepsis New/Unexplained Change in Mental Status Sepsis Action Taken by Nursing Laboratory Data 09/13/24 07:45 09/13/24 09:17 Lab Results 09/13/24 Range/Units 07:45 WBC 9.59 (4.8-10.8) K/ul RBC 4.76 (4.20-5.40) M/uL Hgb 13.5 (12.0-16.0) g/dl Hct 40.2 (37.0-47.0) % MCV 84.5 (80.0-100.0) fL MCH 28.4 (25.0-34.0) pg MCHC 33.6 (32.0-36.0) g/dL RDW Std Deviation 38.0 (36.4-46.3) fL RDW Coeff of Aj 12.4 (11.5-14.5) % Plt Count 313 (130-400) K/uL MPV 10.5 (9.4-12.4) fL Immature Gran % (Auto) 0.5 % Neut % (Auto) 74.3 % Lymph % (Auto) 24.1 % Hemphill % (Auto) 1.0 % Eos % (Auto) 0.0 % Baso % (Auto) 0.1 % Neut # (Auto) 7.12 H (1.40-6.50) K/uL Lymph # (Auto) 2.31 (1.20-3.40) K/uL Hemphill # (Auto) 0.10 L (0.11-0.59) K/uL Eos # (Auto) 0.00 (0.00-0.50) K/uL Baso # (Auto) 0.01 (0.00-0.20) K/uL Immature Gran # (Auto) 0.05 (0.01-0.20) K/uL Sodium 136 (136-145) mmol/L Potassium TNP Chloride 104 (98-107) mmol/L Carbon Dioxide 21 (21-32) mmol/L Anion Gap 11 (3-11) BUN 31 H (6-23) mg/dl Creatinine 1.22 H (0.6-1.2) mg/dl Est Cr Clr Drug Dosing 39.0 ml/min eGFR 47.44 BUN/Creatinine Ratio 25.4 H (10-20) Glucose 182 H (70-99(Fasting)) mg/dl Calcium 9.2 (8.6-10.3) mg/dl Total Bilirubin 0.4 (0.2-1.0) mg/dl AST TNP ALT 11 (7-52) U/L Alkaline Phosphatase 122 H (34-104) U/L Total Protein 8.1 (6.0-8.3) gm/dl Albumin 3.8 (3.4-5.0) gm/dl Globulin 4.3 H (2.5-4.0) gm/dl Albumin/Globulin Ratio 0.9 (0.9-2) Administered Medications Sodium Chloride (Nss) 1,000 mls @ 80 mls/hr IV .[id number] JUAN MIGUEL Stop: 09/13/24 22:29 Last Admin: 09/13/24 11:05 Dose: 80 mls/hr Documented By: BCN Discontinued Medications Cetirizine HCl (Cetirizine Hcl 10 Mg Tablet) 10 mg PO NOW ONE Stop: 09/13/24 07:27 Last Admin: 09/13/24 07:42 Dose: 10 mg Documented By: MR Diphenhydramine HCl (Diphenhydramine 50 Mg/Ml Vial) 25 mg IV NOW STA Stop: 09/13/24 07:27 Last Admin: 09/13/24 07:43 Dose: 25 mg Documented By: MR Famotidine (Pepcid 20mg Iv Push) 20 mg in 5 mls @ 2.5 mls/min IV NOW STA Stop: 09/13/24 07:27 Last Admin: 09/13/24 07:41 Dose: 2.5 mls/min Documented By: MR Methylprednisolone (Methylprednisolone 125 Mg/2 Ml Vial) 125 mg IV NOW STA Stop: 09/13/24 07:27 Last Admin: 09/13/24 07:44 Dose: 125 mg Documented By: MR Imaging Data Radiologist's Impression: Chest X-Ray 09/13/24 07:26 EXAM: XR chest 1V portable CLINICAL HISTORY: Cough. TECHNIQUE: An X-ray image of the chest is obtained in PA projection. COMPARISON: CR dated 05/19/2018. FINDINGS: Pulmonary Parenchyma: Lungs are clear bilaterally. No evidence of consolidation, collapse, or focal opacities. No pulmonary nodules are identified. No evidence of pleural effusion or pleural thickening. Heart and Mediastinum: Heart size and shape are normal. No mediastinal widening or masses. No hilar or mediastinal lymphadenopathy. Bony Thorax: Evidence of internal fixation lower visualized cervical levels The bony thorax appears intact without fractures or deformities. Soft Tissues: Soft tissues overlying the chest wall are unremarkable. IMPRESSION: 1. No acute cardiopulmonary abnormalities are identified. 2. No interval changes. Electronically signed by Viviana Portillo 09-13-2024 08:15 AM Discharge Plan Visit Data Chief Complaint: Allergic Reaction Stated Complaint: ALLERGIC REACTION TO MEDICATION ED Provider: Jalil Gar Discharge Problem: Angioedema, Cough Patient Disposition: Being Evaluated by Hospitalist Discharge Instructions Interventions: ED Discharge Assessment Last Done: 09/13/24 12:27 Discharge Problem: Angioedema Qualifiers: Encounter type: initial encounter Qualified Code(s): T78.3XXA - Angioneurotic edema, initial encounter
[2024-09-13] MEDS: FAMOTIDINE 20MG IV PUSH 20 MG/5 ML SYR IV STA (07:41)
[2024-09-13] MEDS: CETIRIZINE HCL 10 MG TABLET PO ONE (07:42)
[2024-09-13] MEDS: diphenhydrAMINE 50 MG/ML VIAL IV STA (07:43)
[2024-09-13] MEDS: methylPREDNISolone 125 MG/2 ML VIAL IV STA (07:44)
[2024-09-13 08:03] LABS: Basophils # (auto) 0.01 K/uL (0.00-0.20); Basophils % (auto) 0.1 %; Hematocrit (blood only) 40.2 % (37.0-47.0); Hemoglobin 13.5 g/dl (12.0-16.0); Immature Granulocytes # (auto) 0.05 K/uL (0.01-0.20); Immature Granulocytes % (auto) 0.5 %; Lymphocytes # (auto) 2.31 K/uL (1.20-3.40); Lymphocytes % (auto) 24.1 %; Mean Corpuscular Hemoglobin 28.4 pg (25.0-34.0); Mean Corpuscular Hgb Conc 33.6 g/dL (32.0-36.0); Mean Corpuscular Volume 84.5 fL (80.0-100.0); Mean Platelet Volume 10.5 fL (9.4-12.4); Neutrophils # (auto) 7.12 K/uL (1.40-6.50); Neutrophils % (auto) 74.3 %; Platelet Count 313 K/uL (130-400); RDW Coefficient of Variation 12.4 % (11.5-14.5); Red Blood Count 4.76 M/uL (4.20-5.40); White Blood Count 9.59 K/ul (4.8-10.8)
--- NOTE | 2024-09-13 08:15 | XRay Report ---
EXAM: XR chest 1V portable CLINICAL HISTORY: Cough. TECHNIQUE: An X-ray image of the chest is obtained in PA projection. COMPARISON: CR dated 05/19/2018. FINDINGS: Pulmonary Parenchyma: Lungs are clear bilaterally. No evidence of consolidation, collapse, or focal opacities. No pulmonary nodules are identified. No evidence of pleural effusion or pleural thickening. Heart and Mediastinum: Heart size and shape are normal. No mediastinal widening or masses. No hilar or mediastinal lymphadenopathy. Bony Thorax: Evidence of internal fixation lower visualized cervical levels The bony thorax appears intact without fractures or deformities. Soft Tissues: Soft tissues overlying the chest wall are unremarkable. IMPRESSION: 1. No acute cardiopulmonary abnormalities are identified. 2. No interval changes. Electronically signed by Viviana Portillo 09-13-2024 08:15 AM
[2024-09-13 08:56] LABS: Alanine Aminotransferase 11 U/L (7-52); Albumin Globulin Ratio 0.9 (0.9-2); Albumin Level 3.8 gm/dl (3.4-5.0); Alkaline Phosphatase 122 U/L (34-104); Anion Gap 11 (3-11); BUN Creatinine Ratio 25.4 (10-20); Bilirubin,Total 0.4 mg/dl (0.2-1.0); Blood Urea Nitrogen 31 mg/dl (6-23); Calcium 9.2 mg/dl (8.6-10.3); Carbon Dioxide 21 mmol/L (21-32); Chloride 104 mmol/L (98-107); Globulin 4.3 gm/dl (2.5-4.0); Glucose 182 mg/dl (70-99(Fasting)); Sodium 136 mmol/L (136-145); Total Protein 8.1 gm/dl (6.0-8.3)
--- OUTSIDE RECORDS SUMMARY | 2024-09-13 09:55 | External Medical Summary | Summary of Care ---
Author Name Unknown Organization [facility] Address [address] [facility] [place] [address] Phone [phone] Care Team Providers Care Roller Varnisher Name Role Phone Vivian Pena JIMI Primary Care Provider [phone] Encounter Details Date Type Department Care Team (Late st Contact Info) Description 08/09/2024 Population Health External Data Unspecified Department Allergies Active Allergy Reactions Criticality Noted Date Comments Cephalexin 10/07/2005 Nausea and vomitting Fluconazole 05/02/2010 Nauseated Erythromycin 04/20/2000 nausea Nitrofuran Derivatives 04/20/2000 nausea Penicillins 04/20/2000 in childhood Sulfa Antibiotics 04/20/2000 in childhood documented as of this encounter (statuses as of 08/09/2024) Medications Vitamin D3 25 MCG (1000 UT) Oral Capsule (Cholecalciferol) Take 1 Capsule by mouth in the morning. Active tiZANidine HCl 4 MG Oral Tablet Take 0.5 Tablets by mouth every 8 hours as needed for Muscle spasms. 90 Tablet 1 4 Active Estrogens Conjugated 0.45 MG Oral Tablet (Premarin) Take 1 tablet by mouth every other day. 90 Tablet 3 05/12/2024 2:11 PM EDT 4 Active Levothyroxine Sodium 75 MCG Oral Tablet (Levoxyl)Indication s:Acquired hypothyroidism Take 1 Tablet by mouth daily first thing in the morning. 90 Tablet 3 06/20/2024 5:25 PM EST 4 Active Lisinopril 10 MG Oral Tablet (Prinivil)Indicatio ns:Essential hypertension with goal blood pressure less than 140/90 Take 1 Tablet by mouth in the morning. 90 Tablet 3 04/20/2024 10:36 AM EDT Active Nortriptyline HCl 25 MG Oral Capsule (Pamelor)Indication s:Meniere's disease, unspecified laterality Take 2 Capsules by mouth daily. 180 Capsule 3 04/20/2024 10:36 AM EDT Active documented as of this encounter (statuses as of 08/09/2024) Active Problems Problem Noted Date Diagnosed Date Elevated liver transaminase level 04/09/2024 Hypertensive kidney disease with stage 3a chronic kidney disease 02/09/2023 Dyslipidemia, goal LDL below 100 04/30/2022 SVT (supraventricular tachycardia) 04/30/2022 S/P lumbar laminectomy 12/24/2021 Dyslipidemia 11/12/2020 Stage 3a chronic kidney disease (CKD) 03/16/2018 Overview: Per CKD protocol HTN, goal below 140/90 03/16/2017 Cervical spine degeneration 12/11/2011 Acquired hypothyroidism 2003 Meniere's disease documented as of this encounter (statuses as of 08/09/2024) Resolved Problems Problem Noted Date Diagnosed Date Resolved Date S/P laparoscopic cholecystectomy 04/11/2024 05/05/2024 Gall stone pancreatitis 04/10/202403/20 Abdominal pain, RUQ (right upper quadrant) 04/09/2024 04/11/2024 Acute calculous cholecystitis 04/09/2024 04/11/2024 Major depressive disorder with single episode 09/10/19 22 01/06/2023 Hypertensive kidney disease with stage 3a chronic kidney disease 09/10/2021 01/06/2023 Chronic kidney disease, stage 3b 12/31/2020 01/06/2023 Overview: Per CKD protocol H/O excision of lamina of bishop mbar vertebra for decompression of spinal cord 10/03/2019 01/06/2023 Spinal stenosis of lumbar re gion with neurogenic claudication 04/25/2019 01/06/2023 VALENTIN (generalized anxiety disorder) 07/15/2018 12/22/2022 Kidney disease, chronic, sta ge III (GFR 30-59 ml/min) 10/26/2017 05/02/2018 Overview: Per CKD protocol #1 Generalized weakness 03/23/2017 018 Soft tissue disorder, other 06/04/2011 01/28/2018 Other voice and resonance disorders 07/05/2009 07/30/2017 Vertigo 04/19/2006 06/24/2018 Overview (04/24/2008): Dr. Greer ADVANCE DIRECTIVE INFORMATION 04/20/2005 01/06/2023 Overview (04/20/2005): No, Advance Directive brochure given to patient. Need for prophylactic hormon e replacement therapy (postmenopausal) 07/30/2017 CLASSICAL MIGRAINE WITHOU ME NTION OF INTRACTABLE MIGRAINE 07/15/2018 documented as of this encounter (statuses as of 08/09/2024) Immunizations Name Administration Dates Next Due COVID-19 mRNA, LNP-s, No Pre serve, 2-Dose Series (Dumbstruck) 09/14/2020 Pneumococcal Conjugate Vacc, 13 Valent (Prevnar) 06/24/2018 Pneumococcal Polysaccharide PPV23 (Pneumovax) 09/27/2019 Season Influenza, Quad, PF, Adjuvanted, 65+ Yrs, IM (FLUAD) 03/29/2020 Seasonal Influenza Vac., MDV , IM, 0.5 mL (Fluzone) 06/02/2016,05/07/2015,04/24/2014,05/02,06/01/2011 Seasonal Influenza Virus Vac cine, Unspecified Formulation 04/15/2021,03/29/2020,03/29/2019,05/14,04/22/2017,06/02/2016,04/24/2014 ,05/02/2013,04/23/2012,06/01/2011 Seasonal Influenza, High Dos e, Trivalent, PF, IM (Fluzone HD) 04/11/2024 Seasonal Influenza, PF, 6 M & above, IM , (FluLaval or Fluzone) 05/14/2018,04/22/2017 Seasonal Influenza, Quadriva lent Hd (Fluzone Hd) 04/27/2023,04/15/2022,04/15/2021 Seasonal Influenza, Trivalen t, (IIV3), PF, (Fluzone) 04/23/2012 Seasonal Influenza, Trivalen t, Adjuvanted, 65+ YRS, PF, (Fluad) 03/29/2019 TDAP (age 10 and older)(Boostrix) 07/28/2013 Varicella Zoster Vaccine (Adult) 08/25/2013 Zoster Vaccine Recombinant (Shingrix) 09/10/2021 documented as of this encounter Social History Tobacco Use Types Packs/Day Years Used Date Smoking Tobacco: Never Smokeless Tobacco: Never Alcohol Use Standard Drinks/Week Comments No 0 (1 standard drink = 0.6 oz pur e alcohol) PHQ-2 Answer Date Recorded PHQ Adult Total Score 0 01/31/2024 Hunger Vital Sign Answer Date Recorded Within the past 12 months, y ou worried that your food would run out before you got the money to buy more. Never true 06/15/20 Within the past 12 months, t he food you bought just didn't last and you didn't have money to get more. Never true 06/15/2022 Personal Safety Answer Date Recorded Do you feel unsafe or have concerns for your saf ety? No 04/09/2024 Do you have concerns for you r family's safety? (Household - for ages 0-17 years) Not on file 04/09/2024 Utilities Answer Date Recorded Do you have trouble paying y our heating, water, or electric bill? No 04/09/2024 Is your family able to pay t he heat, water, or electric bill? (Household - for ages 0-17 years) Not on file 04/09/2024 Does your family have access to good internet? (Household - for ages 0-17 years) Not on file 04/09/2024 Transportation Needs Answer Date Record ed Do you have trouble getting a ride to medical visits or work? (Adult - for ages 18 years and over) Not on file 04/09/2024 Does your family have a hard time getting a ride to doctors visits? (Household - for ages 0-17 years) Not on file 04/09/2024 Has lack of transportation k ept you from medical appointments, meetings, work, or from getting things needed for daily living? Check all that apply. No 04/09/2024 Do you (or your family) have trouble finding or paying for a ride (transportation)? (Household - for ages 0-17 years) Not on file 04/09/2024 Housing Stability Answer Date Recorded Do you currently live in a s helter or have no steady place to sleep at night? (Adult - for ages 18 years and over) Not on file 04/09/2024 Do you think you are at risk of becoming homeless? (Adult - for ages 18 years and over) Not on file 04/09/2024 Does your family worry about paying for your home or becoming homeless? (Household - for ages 0-17 years) Not on file 0 04/09/2024 Are you homeless or worried that you might be in the future? No 04/09/2024 Are you (or your family) muna eless or worried that you might be in the future? (Household - for ages 0-17 years) Not on file Food Insecurity Answer Date Recorded Do you need food for this week? No 04/09/2024 Are you able to get enough f ood for your family? (Household - for ages 0-17 years) Not on file 04/09/2024 Does your family need food t his week? (Household - for ages 0-17 years) Not on file 04/09/2024 Do you always have enough fo od for your family? 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 Answer Date of Assessment Author No 04/09/2024 10:11 AM Suma Hinkle RN * Are you blind or do you have serious difficulty seeing, even when wearing glasses? Answer Date of Assessment Author No 04/09/2024 10:11 AM Suma Hinkle RN * Do you have serious difficulty walking or climbing stairs? (5 years old or older) Answer Date of Assessment Author No 04/09/2024 10:11 AM Suma Hinkle RN * Do you have difficulty dressing or bathing? (5 years old or older) Answer Date of Assessment Author No 04/09/2024 10:11 AM Suma Hinkle RN * Because of a physical, mental, or emotional condition, do you have difficulty doing errands alone such as visiting a doctors office or shopping? (15 years old or older) Answer Date of Assessment Author No 04/09/2024 10:11 AM Suma Hinkle RN documented as of this encounter Mental Status * Because of a physical, mental, or emotional condition, do you have serious difficulty concentrating, remembering, or making decisions? (5 years old or older) Answer Entry Date Author No 04/09/2024 10:11 AM Suma Hinkle RN documented in this encounter Plan of Treatment Upcoming Encounters Date Type Department Care Team (Late st Contact Info) Description 08/15/2024 11:00 AM EST Office Visit Cardiology, [facility] [address] [place] [address] Conchis Urrutia PA-C [address] [place] [phone] 09/27/2024 11:30 AM EDT Office Visit Otolaryngology [facility] [address] [place] [address] Dennise Guerra PA-C [address] [place] [address] 05/03/2025 10:00 AM EDT Office Visit Orthopaedics Spine Surgery, [facility] [address] [place] [address] Brooke Brooke CRNP [address] [place] [phone] Health Maintenance Due Date Last Done Comments Fecal Occult Blood Test 1998 Sigmoidoscopy 1998 Colonoscopy 08/12/2014 08/12/2004 Zoster Vaccines (3 of 3) 11/05/2021 09/10/2021, 01/2014 Adult Wellness Visit 06/15/2023 06/15/2022 DTap/Tdap Vaccines (2 - Td or Tdap) 07/28/2023 07/28/2013, 05/19/2004, 02/12/1994 COVID-19 Vaccine (2 - season) 2024 09/14/2020 GFR 10/21/2024 04/22/2024, 03/20, 04/09/2024, Additional history exists Mammogram 12/29/2024 12/30/2023, 12/17, 12/28/2022, Additional history exists Depression Screening 01/30/2025 01/31/2024 Albumin/Creatinine Ratio 03/23/2025 024, 02/26/2023, 06/15/2022, Additional history exists TSH 03/23/2025 03/23/2024, 11/17, 12/17/2021, Additional history exists CKD PHOS USE SMARTSET 87283 04/09/202503/20, 03/23/2024, 02/26/2023, Additional history exists CKD HGB USE SMARTSET 68334 04/22/202504/22, 04/22/2024, 04/11/2024, Additional history exists Cologuard 01/10/2026 01/10/2023, 12/17, 12/30/2022, Additional history exists Colorectal Cancer Screening 01/10/2026 DXA Scan 01/02/2028 01/01/2021, 12/17, 08/10/2012, Additional history exists Lipid Panel 11/24/2028 11/25/2023, 02/16, 12/17/2021, Additional history exists Pneumococcal Vaccine: 50+ Years Completed 09/27/2019, 06/24/2018 Influenza Vaccine (FLU shot) Completed , 04/27/2023, 04/15/2022, Additional history exists HPV (Gardasil) Vaccine Aged Out No lo nger eligible based on patient's age to complete this topic Hepatitis B Vaccine Aged Out No longe r eligible based on patient's age to complete this topic MENINGOCOCCAL (MENACTRA/MENVEO) Aged Out No longer eligible based on patient's age to complete this topic documented as of this encounter Medical Devices Implanted Type Area Contact Center Team Lead Device Identifier Shelf Expiration Date Model / Serial / Lot Screw Implanted:Qty : 4 on 12/24/2021 by Jules Sanchez MD at OR [facility] Screw N/A: Spine Lumbar [employer] [id number] / / Lens Intraoc 20.0 - [id number] - [id number] Implanted:Qty : 1 on 06/26/2021 by Madhu Romero MD at OR [facility] Left: Eye BAUSCH [employer] LOMB 03/18/2026 [id number] / [id number] / [id number] Lens Intraoc 19.5 - [id number] - [id number] Implanted:Qty : 1 on 07/29/2021 by Madhu Romero MD at OR [facility] Right: Eye BAUSCH & LOMB 02/15/2026 [id number] / [id number] / [id number] Graft Bone Dbm Matrix 2.5x5cm - [id number] - [id number] Implanted:Qty : 1 on 12/24/2021 by Jules Sanchez MD at OR [facility] N/A: Spine Lumbar [employer] [id number] 06/09/2024 [id number] / [id number] / LOT NA Vitoss Bimodal Foam Pack 2.5cc - [id number] - [id number] Implanted:Qty : 1 on 12/24/2021 by Jules Sanchez MD at OR [facility] N/A: Spine Lumbar JESUS : SPINE [id number] 10/13/2022 [id number] / [id number] / [id number] Vitoss Bimodal Foam Pack 2.5cc - [id number] - [id number] Implanted:Qty : 1 on 12/24/2021 by Jules Sanchez MD at OR [facility] N/A: Spine Lumbar JESUS : SPINE [id number] 10/13/2022 [id number] / [id number] / [id number] Head Poly Top Load Matrix - [id number] Implanted:Qty : 4 on 12/24/2021 by Jules Sanchez MD at OR [facility] N/A: Spine Lumbar SYNTHES : DEPUY [id number] / / Cap Locking W/O Saddle Matrix - [id number] Implanted:Qty : 4 on 12/24/2021 by Jules Sanchez MD at OR [facility] N/A: Spine Lumbar SYNTHES : DEPUY 63099 / / Graft Bone Infuse Kit Xsmall - [id number] - [id number] Implanted:Qty : 1 on 12/24/2021 by Jules Sanchez MD at OR [facility] N/A: Spine Lumbar [employer] : NEUROLOGIC PAIN [id number] 10/16/2022 [id number] / [id number] / [id number] Sandoval Implanted:Qty : 2 on 12/24/2021 by Jules Sanchez MD at OR [facility] N/A: Spine Lumbar [employer] [id number] / / Cage Implanted:Qty : 1 on 12/24/2021 by Jules Sanchez MD at OR [facility] N/A: Spine Lumbar [employer] [id number] / / documented as of this encounter Advance Directives * Full Code (Latest Code Status on File) Date Activated Date Inactivated Comments 04/09/2024 10:35 AM 04/11/2024 7:10 PM This order reflects the patients wishes and were consensually agreed upon. Question Answer Comments Discussion of Advance Direct lloyd occurred with: Not Discussed due to patient's condition * Full Code Date Activated Date Inactivated Comments 12/24/2021 1:42 PM 12/26/2021 4:32 PM This order re flects the patients wishes and were consensually agreed upon. * Full Code Date Activated Date Inactivated Comments 12/24/2021 6:30 AM 12/24/2021 1:42 PM This order ref lects the patients wishes and were consensually agreed upon. * Full Code Date Activated Date Inactivated Comments 05/30/2019 11:10 AM 05/31/2019 2:23 PM Question Answer Comments Discussion of Advance Directives occurred with: Not Discussed * Full Code Date Activated Date Inactivated Comments 05/30/2019 6:31 AM 05/30/2019 11:09 AM Question Answer Comments Discussion of Advance Directives occurred with: Not Discussed Care Teams Roller Varnisher Relationship Specialty Start Date End Date Vivian Pena PA-C [address] [place] [address] [place] [id number] PCP - General Physician Desulfurizer Hand 01/28/24 documented as of this encounter
--- OUTSIDE RECORDS SUMMARY | 2024-09-13 09:55 | External Medical Summary ---
Author Name Unknown Address Unknown Organization [id number]:[facility] - [address] [place] [address] Laboratory Report Ordering Provider Test Date Status MAGALYS BA 04/22/2024 09:42:29 Final Observation Date Value Abnormality Reference (Units ) Status MYCODE SPECIMEN-SST 04/22/2024 09:42:29 Freezing of extracted DNA, whole blood and/or serum. Final Performing Location [facility] - [address] [place] [address]
--- OUTSIDE RECORDS SUMMARY | 2024-09-13 09:55 | External Medical Summary | Summary of Care ---
Author Name Unknown Organization [facility] Address [address] [facility] [place] [address] Phone [phone] Care Team Providers Care Crop Setting Out Machine Operator Name Role Phone MarciVivian benson JIMI Primary Care Provider [phone] Encounter Details Date Type Department Care Team (Latest Contact Info) Description 05/02/2024 2:03 PM EDT - 05/02/2024 11:59 PM EDT Hospital Encounter [facility]opaedics, [facility] [address] [place] [phone] Arrived Discharge Disposition: Home - Self Care Allergies Active Allergy Reactions Criticality Noted Date Comments Cephalexin 10/07/2005 Nausea and vomitting Fluconazole 05/02/2010 Nauseated Erythromycin 04/20/2000 nausea Nitrofuran Derivatives 04/20/2000 nausea Penicillins 04/20/2000 in childhood Sulfa Antibiotics 04/20/2000 in childhood documented as of this encounter (statuses as of 05/03/2024) Medications Medication Sig Dispensed Refills Start Date End Date Status Vitamin D3 25 MCG (1000 UT) Oral Capsule (Cholecalciferol) Take 1 Capsule by mouth in the morning. Active tiZANidine HCl 4 MG Oral Tablet Take 0.5 Tablets by mouth every 8 hours as needed for Muscle spasms. 90 Tablet 1 01/17/2024 Active Estrogens Conjugated 0.45 MG Oral Tablet (Premarin) Take 1 tablet by mouth every other day. 90 Tablet 3 04/19/2024 Active Levothyroxine Sodium 75 MCG Oral Tablet (Levoxyl)Indications: Acquired hypothyroidism Take 1 Tablet by mouth daily first thing in the morning. 90 Tablet 3 04/19/2024 Active Lisinopril 10 MG Oral Tablet (Prinivil)Indications :Essential hypertension with goal blood pressure less than 140/90 Take 1 Tablet by mouth in the morning. 90 Tablet 3 04/19/2024 Active Nortriptyline HCl 25 MG Oral Capsule (Pamelor)Indications: Meniere's disease, unspecified laterality Take 2 Capsules by mouth daily. 180 Capsule 3 04/19/2024 Active documented as of this encounter (statuses as of 05/03/2024) Active Problems Problem Noted Date Diagnosed Date S/P laparoscopic cholecystectomy 04/11/2024 Elevated liver transaminase level 04/09/2024 Hypertensive kidney [...] as of this encounter (statuses as of 05/03/2024) Resolved Problems Problem Noted Date Diagnosed Date Resolved Date Gall stone pancreatitis 04/10/202403/20 Abdominal pain, RUQ [...] resonance disorders 07/05/2009 07/30/2017 Vertigo 04/19/2006 06/24/2018 Overview: Dr. Greer ADVANCE DIRECTIVE INFORMATION 04/20/2005 01/06/2023 Overview: No, Advance Directive brochure given to patient. Need for prophylactic hormon e replacement therapy (postmenopausal) 07/30/2017 CLASSICAL MIGRAINE WITHOU ME NTION OF INTRACTABLE MIGRAINE 07/15/2018 documented as of this encounter (statuses as of 05/03/2024) Immunizations Name Administration Dates Next Due COVID-19 mRNA, LNP-s, No Pre serve, 2-Dose Series (Pfizer) 09/14/2020 Pneumococcal Conjugate Vacc, 13 Valent (Prevnar) [...] Date Recorded PHQ Adult Total Score 0 06/15/2022 Hunger Vital Sign Answer Date Recorded Within the past 12 months, y ou worried that your food would run out before you got the money to buy more. Never true 06/15/20 22 Within the past 12 months, t he [...] ages 0-17 years) Not on file 04/09/2024 Sex and Gender Information Value Date Recorded Sex Assigned at Female 02/02/2020 3:13 PM EDT Gender Identity Female 02/02/2020 3:13 PM EDT Sexual Orientation Straight 02/02/2020 3: 13 PM EDT Job Start Date Occupation Industry Not on file Not on file Not on file documented as of this encounter Functional Status Functional Status Response Date of Assess ment Are you deaf or do you have serious difficulty h earing? No 04/09/2024 Are you blind or do you have serious difficulty seeing, even when wearing glasses? No 04/09/2024 Do you have serious difficul ty walking or climbing stairs? (5 years old or older) No 04/09/2024 Do you have difficulty dress ing or bathing? (5 years old or older) No 04/09/2024 Because of a physical, menta l, or emotional condition, do you have difficulty doing errands alone such as visiting a doctor s office or shopping? (15 years old or older) No 09/22/20 24 Cognitive Status Response Date of Assessm ent Because of a physical, menta l, or emotional condition, do you have serious difficulty concentrating, remembering, or making decisions? (5 years old or older) No 04/09/2024 documented as of this encounter Plan of Treatment Upcoming Encounters Date Type Department Care Team (Late st Contact Info) Description 08/15/2024 11:00 AM EST Office Visit Cardiology, [facility] [address] [place] [address] Conchis Urrutia PA-C [address] [place] [address] 09/27/2024 11:30 AM EDT Office Visit Otolaryngology [facility] [address] [place] [address] Dennise Guerra PA-C [address] [place] [address] 05/03/2025 10:00 AM EDT Office Visit Orthopaedics Spine Surgery, [facility] [address] [place] [address] Brooke Brooke CRNP [address] [place] [phone] Health Maintenance Due Date Last Done Comments [...] Additional history exists CKD PHOS USE SMARTSET 09080 04/09/202503/20, 03/23/2024, 02/26/2023, Additional history exists CKD HGB USE SMARTSET 65581 04/22/202504/22, 04/22/2024, 04/11/2024, Additional history exists Cologuard 01/10/2026 01/10/2023, 12/17, 12/30/2022, Additional history exists Colorectal Cancer Screening 01/10/2026 DXA Scan 01/02/2028 01/01/2021, 12/17, 08/10/2012, Additional history exists Lipid Panel 11/24/2028 11/25/2023, 02/16, 12/17/2021, Additional history exists Pneumococcal Vaccine: 65+ Years Completed 09/27/2019, 06/24/2018 Influenza Vaccine (FLU [...] this encounter Medical Devices Implanted Type Area Hydroelectric Systems Technician Device Identifier Shelf Expiration Date Model / Serial / Lot Screw Implanted:Qty : 4 on 12/24/2021 by Jules Sanchez MD at OR [facility] Screw N/A: Spine Lumbar [employer] 04.639.645 / / Lens Intraoc 20.0 - [id number] - [id number] Implanted:Qty : 1 on 06/26/2021 by Madhu Romero MD at OR [facility] Left: Eye [employer]USCH & LOMB 03/18/2026 [id number] / [id number] / [id number] Lens Intraoc 19.5 - [id number] - [id number] Implanted:Qty : 1 on 07/29/2021 by Madhu Romero MD at OR [facility] Right: Eye BAUSCH & LOMB 02/15/2026 [id number] / [id number] / [id number] Graft Bone Dbm Matrix 2.5x5cm - [id number] - [id number] Implanted:Qty : 1 on 12/24/2021 by Jules Sanchez MD at OR [facility] N/A: Spine Lumbar [employer] [id number] 06/09/2024 [id number] / [id number] / LOT NA Vitoss Bimodal Foam Pack 2.5cc - [id number] - [id number] Implanted:Qty : 1 on 12/24/2021 by Jules Sanchez MD at OR [facility] N/A: Spine Lumbar JESUS : SPINE [id number] 10/13/2022 / [id number] / [id number] Vitoss Bimodal Foam Pack 2.5cc - [id number] - [id number] Implanted:Qty : 1 on 12/24/2021 by Jules Sanchez MD at OR [facility] N/A: Spine Lumbar JESUS : SPINE [id number] 10/13/2022 / [id number] / [id number] Head Poly Top Load Matrix - [id number] Implanted:Qty : 4 on 12/24/2021 by Jules Sanchez MD at OR [facility] N/A: Spine Lumbar SYNTHES : DEPUY 04.632.001 / / Cap Locking W/O Saddle Matrix - [id number] Implanted:Qty : 4 on 12/24/2021 by Jules Sanchez MD at OR [facility] N/A: Spine Lumbar SYNTHES : DEPUY 09.632.099 / / Graft Bone Infuse Kit Xsmall - [id number] - [id number] Implanted:Qty : 1 on 12/24/2021 by Jules Sanchez MD at OR [facility] N/A: Spine Lumbar [employer] : NEUROLOGIC PAIN [id number] 10/16/2022 [id number] / [id number] / [id number] Sandoval Implanted:Qty : 2 on 12/24/2021 by Jules Sanchez MD at OR [facility] N/A: Spine Lumbar [employer] SP[employer] INC 04.636.035 / / Cage Implanted:Qty : 1 on 12/24/2021 by Jules Sanchez MD at OR [facility] N/A: Spine Lumbar [employer] [id number] / / documented as of this encounter Procedures Procedure Name Priority Date/Time Associated Diagnosis Comments XR L SPINE COMPLETE Routine 05/02/2024 2:22 PM EDT Status post lumbar spine surgery for decompression of spinal cord documented in this encounter Results * XR L SPINE COMPLETE (05/02/2024 2:22 PM EDT) Anatomical Region Laterality Modality Vertebra, Lspine Digital Radiogr aphy 05/03/2024 12:2 3 PM EDT Impressions 05/03/2024 12:20 PM EDT IMPRESSION 1. Postsurgical changes of L4-L5 posterior spine fusion. 2. Stable spine alignment and degenerative disc changes. Narrative 05/03/2024 12:20 PM EDT EXAM XR L SPINE COMPLETE-05/02/2024 2:22 pm HISTORY fusion hx 12/24/2021 COMPARISON Lumbar spine radiographs dating 10/01/2023 and prior. Lumbar spine MRI dating 08/30/2023. TECHNIQUE Four views of lumbosacral spine. FINDINGS Five hbe-doq-gzeroib lumbar type vertebral bodies. Postsurgical changes of L4- L5 posterior and interbody fusion. Hardware is intact. Grade 1 retrolisthesis of L3 on L4. Multilevel endplate marginal osteophytes and disc space narrowing is seen throughout the imaged lumbar spine, most pronounced at L3-L4 and L5-S1. Vertebral body height is maintained. No significant subluxation is seen with flexion and extension. Sacroiliac joint osteoarthritis. Status post cholecystectomy. Procedure Note Armin Lynn MD - 05/03/2024 EXAM XR L SPINE COMPLETE-05/02/2024 2:22 pm HISTORY fusion hx 12/24/2021 COMPARISON Lumbar spine radiographs dating 10/01/2023 and prior. Lumbar spine MRIdating 08/30/2023. TECHNIQUE Four views of lumbosacral spine. FINDINGS Five fir-ywq-nmvafxc lumbar type vertebral bodies. Postsurgical changesof L4-L5 posterior and interbody fusion. Hardware is intact. Grade 1 retrolisthesis of L3 on L4. Multilevel endplate marginalosteophytes and disc space narrowing is seen throughout the imaged lumbarspine, most pronounced at L3-L4 and L5-S1. Vertebral body height ismaintained. No significant subluxation is seen with flexion and extension. Sacroiliac joint osteoarthritis. Status post cholecystectomy. IMPRESSION IMPRESSION 1. Postsurgical changes of L4-L5 posterior spine fusion. 2. Stable spine alignment and degenerative disc changes. Jules Sanchez MD RADIOLOGY ([facility]) documented in this encounter Advance Directives * Full Code [...] Directives occurred with: Not Discussed Care Teams Crop Setting Out Machine Operator Relationship Specialty Start Date End Date Becky Vivian Mohit, JIMI [facility] [place] [address] PCP - General Physician Roll Forming Machine Operator 01/28/24 documented as of this encounter
--- OUTSIDE RECORDS SUMMARY | 2024-09-13 09:55 | External Medical Summary | Summary of Care ---
Author Name Unknown Organization [facility] Address [address] [facility] [place] [address] Phone [phone] Care Team Providers Care Trip Motor Operator Name Role Phone Vivian Pena JIMI Primary Care Provider [phone] Reason for Visit * Reason Comments Cough Pt here for a non pr oductive cough since Wednesday night. Pt has taken OTC cough med and using a vaporizer but has not helped. Encounter Details Date Type Department Care Team (Late st Contact Info) Description 05/23/2024 3:40 PM EST Office Visit Family [facility] [address] [place] [address] Ross King MD [address] [place] [address] Left maxillary sinusitis* Allergies Active Allergy Reactions Criticality Noted Date Comments Cephalexin 10/07/2005 Nausea and vomitting Fluconazole 05/02/2010 Nauseated Erythromycin 04/20/2000 nausea Nitrofuran Derivatives 04/20/2000 nausea Penicillins 04/20/2000 in childhood Sulfa Antibiotics 04/20/2000 in childhood documented as of this encounter (statuses as of 05/23/2024) Medications Medication Sig Dispensed Refills Start Date [...] mouth daily. 180 Capsule 3 04/19/2024 Active Azithromycin 250 MG Oral Tablet (Zithromax) Take 2 tabs by mouth daily 10 Tablet 05/23/2024 05/28/2024 Active documented as of this encounter (statuses as of 05/23/2024) Active Problems Problem Noted Date Diagnosed Date [...] as of this encounter (statuses as of 05/23/2024) Resolved Problems Problem Noted Date Diagnosed Date Resolved Date S/P laparoscopic cholecystectomy 04/11/2024 05/05/2024 Gall stone pancreatitis 04/10/2024 09/10/2023 Abdominal pain, RUQ (right upper quadrant) 04/09/2024 04/11/2024 Acute calculous cholecystitis 04/09/2024 04/11/2024 Major depressive disorder with single episode 09/10/1901/06/2023 Hypertensive kidney disease with stage 3a chronic [...] as of this encounter (statuses as of 05/23/2024) Immunizations Name Administration Dates Next Due COVID-19 mRNA, LNP-s, No Pre serve, 2-Dose Series ([employer]) 09/14/2020 Pneumococcal Conjugate Vacc, 13 Valent (Prevnar) [...] on file documented as of this encounter Last Filed Vital Signs Vital Sign Reading Time Taken Comments Blood Pressure 130/68 05/23/2024 3:58 PM EST Pulse 109 05/23/2024 3:58 PM EST Temperature 37.3 C (99.1 F) 05/23/2024 3:58 PM ES T Respiratory Rate 16 05/23/2024 3:58 PM EST Oxygen Saturation 98% 05/23/2024 3:58 PM EST Inhaled Oxygen Concentration - - Weight 66.9 kg (147 lb 6.4 oz) 05/23/2024 3:58 P M EST Height 160 cm (5' 3") 05/23/2024 3:58 PM EST Body Mass Index 26.11 05/23/2024 3:58 PM EST documented in this encounter Functional Status Functional Status Response [...] shopping? (15 years old or older) No 04/09/20 Cognitive Status Response Date of Assessm ent Because of a physical, menta l, or emotional condition, do you have serious difficulty concentrating, remembering, or making decisions? (5 years old or older) No 04/09/2024 documented as of this encounter Progress Notes * Ross King MD - 05/23/2024 4:21 PM EST Images from the original note were not included. History of Present Illness Gabby Velásquez is a 69 year old female that presents for Cough (Pt here for a non productive cough since Wednesday night. Pt has taken OTC cough med and using a vaporizer but has not helped. ) Physical Exam BP 130/68 (BP Site: Left Arm, BP Position: Sitting, BP Cuff Size: Regular) | Pulse 109 | Temp 37.3 C (99.1 F) (Tympanic) | Resp 16 | Ht 1.6 m (5' 3") | Wt 66.9 kg (147 lb 6.4 oz) | SpO2 98% | BMI26.11 kg/m | BSA 1.72 m AAOx3 Normal affect NCAT/ PERRL Deviated nasal septum + rhinitis + left TM with fluid behind + left maxillary sinus tenderness Neck supple Throat clear RRR Lungs CTABL Abd soft +BS Ext warm and well perfused No gross neuro deficits Normal gait I have reviewed most recent labs None Assessment and Plan Left maxillary sinusitis - will tx. Azithro 500mg daily due to allergy hx and need higher dose for sinus penetration. Tolerated previously (despite allergy to erythromycin). Wrap-Up prn Time: I spent a total of 10-19 minutes (exact time 12 mins) on the date of service in preparation, delivery, and documentation of the care provided to Gabby Velásquez excluding any time spent in the performance of separately billed services. documented in this encounter Plan of Treatment Upcoming Encounters Date Type Department Care Team (Late st Contact Info) Description 08/15/2024 11:00 AM EST Office Visit Cardiology, [facility] [address] [place] [address] Conchis Urrutia PA-C [address] [place] [address] 09/27/2024 11:30 AM EDT Office Visit Otolaryngology [facility] [address] [place] [address] Dennise Guerra PA-C [address] [place] [address] 05/03/2025 10:00 AM EDT Office Visit Orthopaedics Spine Surgery, Fany Verduzco [address] [place] [address] Brooke Brooke CRNP [address] [place] [phone] Health Maintenance Due Date Last Done Comments [...] Additional history exists CKD PHOS USE SMARTSET 90831 04/09/202503/20, 03/23/2024, 02/26/2023, Additional history exists CKD HGB USE SMARTSET 88789 04/22/202504/22, 04/22/2024, 04/11/2024, Additional history exists Cologuard [...] this encounter Medical Devices Implanted Type Area Gauntlet Pairer Device Identifier Shelf Expiration Date Model / Serial / Lot Screw Implanted:Qty : 4 on 12/24/2021 by Jules Sanchez MD at OR [facility] Screw N/A: Spine Lumbar [employer] SP[employer] INC 04.639.645 / / Lens Intraoc 20.0 - [id number] - [id number] Implanted:Qty : 1 on 06/26/2021 by Madhu Romero MD at OR [facility] Left: Eye BAUSCH & LOMB 03/18/2026 [id number] / [id number] / [id number] Lens Intraoc 19.5 - [id number] - [id number] Implanted:Qty : 1 on 07/29/2021 by Madhu Romero MD at OR [facility] Right: Eye BAUSCH & LOMB 02/15/2026 [id number] / [id number] / [id number] Graft Bone Dbm Matrix 2.5x5cm - [id number] - [id number] Implanted:Qty : 1 on 12/24/2021 by Jules Sanchez MD at OR [facility] N/A: Spine Lumbar [employer] [id number] 06/09/2024 [id number] / [id number] / LOT NA Vitoss Bimodal Foam Pack 2.5cc - [id number] - [id number] Implanted:Qty : 1 on 12/24/2021 by Jules Sanchez MD at OR [facility] N/A: Spine Lumbar JESUS : SPINE [id number] 10/13/2022 [id number] / [id number] / [id number] Vitoss Bimodal Foam Pack 2.5cc - [id number] - [id number] Implanted:Qty : 1 on 12/24/2021 by Jules Sanchez MD at OR [facility] N/A: Spine Lumbar JESUS : SPINE [id number] 10/13/2022 0962-9161 / [id number] / [id number] Head Poly Top Load Matrix - [id number] Implanted:Qty : 4 on 12/24/2021 by Jules Sanchez MD at OR [facility] N/A: Spine Lumbar SYNTHES : DEPUY [id number] / / Cap Locking W/O Saddle Matrix - [id number] Implanted:Qty : 4 on 12/24/2021 by Jules Sanchez MD at OR [facility] N/A: Spine Lumbar SYNTHES : DEPUY 63099 / / Graft Bone Infuse Kit Xsmall - [id number] - [id number] Implanted:Qty : 1 on 12/24/2021 by Jules Sanchez MD at OR [facility] N/A: Spine Lumbar [employer] : NEUROLOGIC PAIN [id number] 10/16/2022 [id number] / [id number] / [id number] Sandoval Implanted:Qty : 2 on 12/24/2021 by Jules Sanchez MD at OR [facility] N/A: Spine Lumbar DEPUY SPINE INC 636.035 / / Cage Implanted:Qty : 1 on 12/24/2021 by Jules Sanchez MD at OR [facility] N/A: Spine Lumbar [employer] SP[employer] [id number] / / documented as of this encounter Visit Diagnoses Diagnosis Left maxillary sinusitis- Primary Chronic maxillary sinusitis documented in this encounter Advance Directives * [...] Directives occurred with: Not Discussed Care Teams Trip Motor Operator Relationship Specialty Start Date End Date Vivian Pena PA-C [address] [place] [address] PCP - General Physician [place] 01/28/24 documented as of this encounter
--- OUTSIDE RECORDS SUMMARY | 2024-09-13 09:55 | External Medical Summary ---
Author Name Unknown Address Unknown Organization [id number]:[facility] [address] [place] [address] Laboratory Report Ordering Provider Test Date Status BHARATHI TOBIAS 04/22/2024 09:42:29 Final Discharge Order
Discharg e Order Observation Date Value Abnormality Reference (Units ) Status SYNC LEUKOCYTES IN BLOOD BY AUTOMATED COUNT 04/22/2024 09:42:29 8.72 4.00-10.80 (K/uL) Final Segs 04/22/2024 09:42:29 53.1 40.0-75.0 (%) Final Lymphs % 04/22/2024 09:42:29 38.2 18.0-42.0 (%) Final Monos 04/22/2024 09:42:29 6.1 1.0-11.0 (%) Final Eosinophils 04/22/2024 09:42:29 2.1 0.0-6.0 (%) Final Basos 04/22/2024 09:42:29 0.5 0.0-2.0 (%) Final Absolute Segs 04/22/2024 09:42:29 4.64 1.80-7.70 (K/uL) Final Lymphs, absolute 04/22/2024 09:42:29 3.33 1.00-4.80 (K/ul) Final Monos, Abs 04/22/2024 09:42:29 0.53 0.00-1.10 (K/uL) Final Eos, Abs 04/22/2024 09:42:29 0.18 0.00-0.70 (K/uL) Final Basos, Abs 04/22/2024 09:42:29 0.04 0.00-0.20 (K/uL) Final Performing Location [facility] [place] [address]
--- OUTSIDE RECORDS SUMMARY | 2024-09-13 09:55 | External Medical Summary ---
Author Name Unknown Address Unknown Organization [id number] [address] [place] [address] Laboratory Report Ordering Provider Test Date Status BHARATHI TOBIAS 04/22/2024 09:42:29 Final Discharge Order
Discharg e Order Observation Date Value Abnormality Reference (Units ) Status WBC, Total 04/22/2024 09:42:29 8.72 4.00-10.8 0 (K/uL) Final RBC 04/22/2024 09:42:29 4.33 3.85-5.15 (M/uL) Final Hemoglobin 04/22/2024 09:42:29 12.8 12.0-15.3 (g/dL) Final HCT 04/22/2024 09:42:29 38.5 36.0-45.2 (%) Final MCV 04/22/2024 09:42:29 88.9 81.5-97.5 (fL) Final MCH 04/22/2024 09:42:29 29.6 27.0-34.0 (pg) Final MCHC 04/22/2024 09:42:29 33.2 32.0-36.0 (g/dL) Final RDW 04/22/2024 09:42:29 12.8 11.5-15.5 (%) Final Platelets 04/22/2024 09:42:29 315 140-400 (K /uL) Final MPV 04/22/2024 09:42:29 9.6 6.6-11.1 ( fL) Final Performing Location [facility] [place] [address]
--- OUTSIDE RECORDS SUMMARY | 2024-09-13 09:55 | External Medical Summary ---
Author Name Unknown Address Unknown Organization [id number] [address] [place] [address] Laboratory Report Ordering Provider Test Date Status BHARATHI TOBIAS 04/22/2024 09:42:29 Final Discharge Order Observation Date Value Abnormality Reference (Units ) Status BUN 04/22/2024 09:42:29 23 Above high normal 6-20 (mg/dL) Final Creatinine 04/22/2024 09:42:29 1.1 Above high normal 0.5-1.0 (mg/dL) Final Glomerular filtration rate/1.73 sq M.predicted [Volume Rate/Area] in Serum, Plasma or Blood by Creatinine-based formula (CKD-EPI) 04/22/2024 09:42:29 53 Below low normal >=60 (mL/min) Final eGFR is calculated based on the CKD-EPI 2020 equation. Sodium 04/22/2024 09:42:29 138 135-146 (m mol/L) Final Potassium 04/22/2024 09:42:29 5.0 3.5-5.1 (m mol/L) Final Cl 04/22/2024 09:42:29 101 98-107 (mm ol/L) Final CO2 04/22/2024 09:42:29 25 22-32 (mmo l/L) Final Anion gap 04/22/2024 09:42:29 12 7-15 (mmol /L) Final Glucose 04/22/2024 09:42:29 95 70-120 (mg /dL) Final Calcium 04/22/2024 09:42:29 9.8 8.4-10.2 ( mg/dL) Final Performing Location [facility] [address] [place] [address]
--- OUTSIDE RECORDS SUMMARY | 2024-09-13 09:55 | External Medical Summary ---
Author Name Unknown Address Unknown Organization K[facility] [place] [address] [place] [address] Laboratory Report Ordering Provider Test Date Status MAGALYS BA 04/22/2024 09:42:29 Final Observation Date Value Abnormality Reference (Units ) Status MYCODE SPECIMEN-SST 04/22/2024 09:42:29 Freezing of extracted DNA, whole blood and/or serum. Final Performing Location [facility] [place] [address] [place] [address]
--- OUTSIDE RECORDS SUMMARY | 2024-09-13 09:55 | External Medical Summary | Summary of Care ---
Author Name Unknown Organization [facility] Address [address] [facility] [place] [address] Phone [phone] Care Team Providers Care Aircraft Sales Representative Name Role Phone BeckyVivian Mohit KRAUSE Primary Care Provider [phone] Reason for Visit * Reason Comments Post Op Surgery Encounter Details Date Type Department Care Team (Late st Contact Info) Description 05/01/2024 3:30 PM EDT Office Visit General Surgery Fany Alcantara [address] [place] [address] Alan Torres MD [address] [place] [address] Postop check* Allergies Active Allergy Reactions Criticality Noted Date Comments Cephalexin 10/07/2005 Nausea and vomitting Fluconazole 05/02/2010 Nauseated Erythromycin 04/20/2000 nausea Nitrofuran Derivatives 04/20/2000 nausea Penicillins 04/20/2000 in childhood Sulfa Antibiotics 04/20/2000 in childhood documented as of this encounter (statuses as of 05/05/2024) Medications Medication Sig Dispensed Refills Start Date [...] as of this encounter (statuses as of 05/05/2024) Active Problems Problem Noted Date Diagnosed Date [...] as of this encounter (statuses as of 05/05/2024) Resolved Problems Problem Noted Date Diagnosed Date [...] as of this encounter (statuses as of 05/05/2024) Immunizations Name Administration Dates Next Due COVID-19 [...] Date Smoking Tobacco: Never Smokeless Tobacco: Never Tobacco Cessation:Counseling Given: No Alcohol Use Standard Drinks/Week Comments No 0 [...] Sign Reading Time Taken Comments Blood Pressure 137/72 05/01/2024 3:33 PM EDT Pulse 89 05/01/2024 3:33 PM EDT Temperature 36.4 C (97.5 F) 05/01/2024 3:33 PM ED T Respiratory Rate - - Oxygen Saturation - - Inhaled Oxygen Concentration - - Weight 62.1 kg (137 lb) 05/01/2024 3:33 PM EDT Height - - Body Mass Index 24.27 04/09/2024 9:54 AM EDT documented in this encounter Functional Status Functional [...] as of this encounter Progress Notes * Stas Augustine MD - 05/01/2024 3:46 PM EDT GENERAL SURGERY CLINIC NOTE Gabby Sweeney Christen 05/01/2024 [id number] SUBJECTIVE: Gabby Velásquez is s/p laparoscopic cholecystectomy for biliary colic. Doing well since surgery. Denies any abdominal pain. Not taking any pain meds. Tolerating regular diet without N/V/D. Having normalbowel function. Denies fevers and chills. Pathology: Final Diagnosis A. Gallbladder, cholecystectomy: Active chronic calculous cholecystitis OBJECTIVE: BP 137/72 | Pulse 89 | Temp 36.4 C (97.5 F) (Temporal Artery) | Wt 62.1 kg (137 lb) | BMI 24.27kg/m | BSA 1.66 m Physical Exam: Constitutional: well nourished, well developed, no acute distress Neck: Supple, full ROM CV: normal rate, normal rhythm Chest: normal respiratory effort Abdomen: soft, NTTP, ND, incisions well healed Ext: no edema Skin: complete exam not performed, but no obvious gross lesions Neuro: alert, oriented to person, place, and time, motor and sensation grossly intact IMPRESSION: 1) 68 y/o female s/p laparoscopic cholecystectomy for biliary colic. Doing well post-op. PLAN: - continue weight lifting restrictions - RTC prn Seen and examined with Dr. Torres. Stas Augustine MD 05/01/2024 3:47 PM Associated attestation - Alan Torres MD - 05/05/2024 9:19 AM EDT I have discussed the patient's management with the medical trainee and agree with the note. Please refer to the documented findings and plan of care. This patient's visit today consisted of an evaluation. I was present and confirmed the findings of the history and exam. Cierra Torres MD documented in this encounter Nursing Notes * Elli De Los Santos CMA - 05/01/2024 3:30 PM EDT Chief Complaint Patient presents with Post Op Surgery Patient accompanied by . Pt here for post op laparoscopic cholecystectomy. Patient doing well with no complications. Incision healing well. Denies redness, swelling, dehiscence, or drainage. Denies N/V, fevers, chills, sweats. Pain is 0/10. Bowels are moving well with no problems documented in this encounter Plan of Treatment Upcoming Encounters Date Type Department Care Team (Late st Contact Info) Description 08/15/2024 11:00 AM EST Office Visit Cardiology, [facility] [address] [place] [address] Conchis Urrutia PA-C [address] [place] [address] 09/27/2024 11:30 AM EDT Office Visit Otolaryngology [facility] [address] [place] [address] Dennise Guerra PA-C [address] [place] [address] 05/03/2025 10:00 AM EDT Office Visit Orthopaedics Spine Surgery, [facility] [place] [address] [place] [address] Brooke Brooke, EDUCATION AND OUTREACH COORDINATOR [address] [place] [address] Health Maintenance Due Date Last Done Comments [...] Additional history exists CKD PHOS USE SMARTSET 32096 04/09/202503/20, 03/23/2024, 02/26/2023, Additional history exists CKD HGB USE SMARTSET 05706 04/22/202504/22, 04/22/2024, 04/11/2024, Additional history exists Cologuard [...] this encounter Medical Devices Implanted Type Area Legal Document Assistant Device Identifier Shelf Expiration Date Model / Serial / Lot Screw Implanted:Qty : 4 on 12/24/2021 by Jules Sanchez MD at OR [facility] Screw N/A: Spine Lumbar [employer] 04.639.645 / / Lens Intraoc 20.0 - [id number] - [id number] Implanted:Qty : 1 on 06/26/2021 by Madhu Romero MD at OR [facility] Left: Eye BAUSCH & LOMB 03/18/2026 [id number] / [id number] / [id number] Lens Intraoc 19.5 - [id number] - [id number] Implanted:Qty : 1 on 07/29/2021 by Madhu Romero MD at OR [facility] Right: Eye BAUSCH & LOMB 02/15/2026 [id number] / [id number] / [id number] Graft Bone Dbm Matrix 2.5x5cm - [id number] - [id number] Implanted:Qty : 1 on 12/24/2021 by Jules Sanchez MD at OR [facility] N/A: Spine Lumbar [employer] [id number] 06/09/2024 [id number] / [id number] / LOT NA Vitoss Bimodal Foam Pack 2.5cc - [id number] - [id number] Implanted:Qty : 1 on 12/24/2021 by Jules Sanchez MD at OR [facility] N/A: Spine Lumbar JESUS : SPINE [id number] 10/13/2022 / [id number] / [id number] Vitoss Bimodal Foam Pack 2.5cc - [id number] - [id number] Implanted:Qty : 1 on 12/24/2021 by Jules Sanchez MD at OR [facility] N/A: Spine Lumbar JESUS : SPINE [id number] 10/13/2022 / [id number] / [id number] Head Poly Top Load Matrix - [id number] Implanted:Qty : 4 on 12/24/2021 by Jules Sanchez MD at OR [facility] N/A: Spine Lumbar SYNTHES : DEPUY 632.001 / / Cap Locking W/O Saddle Matrix - [id number] Implanted:Qty : 4 on 12/24/2021 by Jules Sanchez MD at OR [facility] N/A: Spine Lumbar SYNTHES : DEPUY 632.099 / / Graft Bone Infuse Kit Xsmall - [id number] - [id number] Implanted:Qty : 1 on 12/24/2021 by Jules Sanchez MD at OR [facility] N/A: Spine Lumbar [employer] : NEUROLOGIC PAIN [id number] 10/16/2022 [id number] / [id number] / [id number] Sandoval Implanted:Qty : 2 on 12/24/2021 by Jules Sanchez MD at OR [facility] N/A: Spine Lumbar [employer] 636.035 / / Cage Implanted:Qty : 1 on 12/24/2021 by Jules Sanchez MD at OR [facility] N/A: Spine Lumbar [employer] [id number] / / documented as of this encounter Visit Diagnoses Diagnosis Postop check- Primary Follow-up examination, following unspecified surgery documented in this encounter Advance Directives * [...] Directives occurred with: Not Discussed Care Teams Aircraft Sales Representative Relationship Specialty Start Date End Date Becky Vivian JIMI [address]ued[address] [place] [address] PCP - General Physician Inspector Rag Sorting 01/28/24 documented as of this encounter"
--- OUTSIDE RECORDS SUMMARY | 2024-09-13 09:55 | External Medical Summary | Summary of Care ---
Author Name Unknown Organization [facility] Address [address] [facility] [place] [address] Phone [phone] Care Team Providers Care Chrome Tanner Name Role Phone Becky Vivian Mohit JIMI Primary Care Provider [phone] Reason for Visit * Reason Comments Acute cough Encounter Details Date Type Department Care Team (Late st Contact Info) Description 09/12/2024 4:20 PM EST Office Visit General Internal Medicine [facility] [address] [place] [address] [facility] [address] [place] [address] Fatimah Gamble MD [address] [facility] [place] [address] Subacute cough*; Hypertensive kidney disease with stage 3a chronic kidney disease (HCC); SVT (supraventricular tachycardia) ([facility]); Acquired hypothyroidism; Dyslipidemia, goal LDL below 100; Acute maxillary sinusitis, recurrence not specified Allergies Active Allergy Reactions Criticality Noted Date Comments Cephalexin 10/07/2005 Nausea and vomitting Fluconazole 05/02/2010 Nauseated Erythromycin 04/20/2000 nausea Nitrofuran Derivatives 04/20/2000 nausea Penicillins 04/20/2000 in childhood Sulfa Antibiotics 04/20/2000 in childhood documented as of this encounter (statuses as of 09/13/2024) Medications Vitamin D3 25 MCG (1000 UT) Oral Capsule (Cholecalciferol) Take 1 Capsule by mouth in the morning. Active tiZANidine HCl 4 MG Oral Tablet Take 0.5 Tablets by mouth every 8 hours as needed for Muscle spasms. 90 Tablet 1 Active Estrogens Conjugated 0.45 MG Oral Tablet [...] mouth in the morning. 90 Tablet 3 08/09/2024 5:19 PM EST 4 Active Nortriptyline HCl 25 MG Oral Capsule (Pamelor)Indication s:Meniere's disease, unspecified laterality Take 2 Capsules by mouth daily. 180 Capsule 3 08/09/2024 5:19 PM EST 4 Active Meclizine HCl 25 MG Oral Tablet (Antivert) Take 1 Tablet by mouth 3 times a day as needed for Dizziness. 30 Tablet 1 5 Active Triamterene-HCTZ 37.5-25 MG Oral Capsule (Dyazide)Indication s:HTN (hypertension) Take 1 Capsule by mouth in the morning. 30 Capsule 5 5 Active Benzonatate 100 MG Oral Capsule (Tessalon Perles) Take 1 Capsule by mouth 2 times a day as needed. 5 Active predniSONE 10 MG Oral Tablet (Deltasone)Indicati ons:Subacute cough,Acute maxillary sinusitis, recurrence not specified Take 5 tabs for 2 days, 4 tabs for 2 days, 3 tabs for 2 days, 2 tabs for 2 days 1 tab for 2 days 30 Tablet 5 Active Doxycycline Hyclate 100 MG Oral CapsuleIndications: Subacute cough,Acute maxillary sinusitis, recurrence not specified Take 1 Capsule by mouth in the morning and 1 Capsule before bedtime. Do all this for 10 days. Until gone.. 20 Capsule 5 09/23/19 25 Active Budesonide-Formoter ol Fumarate 160-4.5 MCG/ACT Inhalation Aerosol (Symbicort)Indicati ons:Subacute cough,Acute maxillary sinusitis, recurrence not specified Inhale 2 Puffs by mouth in the morning and 2 Puffs before bedtime. 10.2 g 3 Active documented as of this encounter (statuses as of 09/13/2024) Active Problems Problem Noted Date Diagnosed Date Elevated liver transaminase level 04/09/2024 Hypertensive kidney disease with stage 3a chronic kidney disease 02/09/2023 SVT (supraventricular tachycardia) 04/30/2022 S/P lumbar laminectomy 12/24/2021 Dyslipidemia, goal LDL below 100 11/12/2020 Stage 3a chronic kidney disease (CKD) 03/16/2018 Overview: Per CKD protocol HTN, goal below 140/90 03/16/2017 Cervical spine degeneration 12/11/2011 Acquired hypothyroidism 2003 Meniere's disease documented as of this encounter (statuses as of 09/13/2024) Resolved Problems Problem Noted Date Diagnosed Date [...] re gion with neurogenic claudication 04/25/2019 01/06/2023 VALNETIN (generalized anxiety disorder) 07/15/2018 12/22/2022 Kidney disease, [...] as of this encounter (statuses as of 09/13/2024) Immunizations Name Administration Dates Next Due COVID-19 [...] ages 0-17 years) Not on file 04/09/2024 Food Insecurity Answer Date Recorded Worried About Running Out of Food in the Last Ye ar Not on file 04/09/2024 Ran Out of Food in the Last Year Not on file 04/09/2024 Do you need food for this week? 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 Not on file Not on file documented as of this encounter Last Filed Vital Signs Vital Sign Reading Time Taken Comments Blood Pressure 124/80 09/12/2024 4:03 PM EST Pulse 104 09/12/2024 4:03 PM EST Temperature 37.5 C (99.5 F) 09/12/2024 4:03 PM ES T Respiratory Rate - - Oxygen Saturation 96% 09/12/2024 4:03 PM EST Inhaled Oxygen Concentration - - Weight 67.9 kg (149 lb 11.2 oz) 09/12/2024 4:03 PM EST Height 160 cm (5' 3") 09/12/2024 4:03 PM EST Body Mass Index 26.52 09/12/2024 4:03 PM EST documented in this encounter Functional Status * Are you [...] Suma Hinkle RN documented in this encounter Progress Notes * Fatimah Gamble MD - 09/12/2024 4:12 PM EST Images from the original note were not included. History of Present Illness Gabby Velásquez is a 69 year old female that presents for Acute (cough) Pt has worsening wheezing, cough with phlegm, sinus pressure, headache for last one week to 10 days. Facial pressure+ No chestpain or sob. Recent flu and covid negative. Doesn't prefer repeat test. Physical Exam Vitals: 09/12/24 1603 Temp: 99.5 F (37.5 C) Pulse: 104 SpO2: 96% BP: 124/80 BMI: 26.52 BP Readings from Last 3 Encounters: 09/12/24 124/80 05/23/24 130/68 05/01/24 137/72 Wt Readings from Last 3 Encounters: 09/12/24 149 lb 11.2 oz (67.9 kg) 05/23/24 147 lb 6.4 oz (66.9 kg) 05/01/24 137 lb (62.1 kg) BMI Readings from Last 3 Encounters: 09/12/24 26.52 kg/m 05/23/24 26.11 kg/m 05/01/24 24.27 kg/m Ht Readings from Last 3 Encounters: 09/12/24 5' 3" (1.6 m) 05/23/24 5' 3" (1.6 m) 04/09/24 5' 3" (1.6 m) HEENT: PERRLA, EOMI, anicteric sclera, b/l tympanic membrane is pearly white, no erythema, no pharyngeal erythema, no lymphadenopathy, neck supple CVS: RRR, no murmurs, rubs or gallops, s1 s 2normal. RESP: clear to auscultation, +wheezing , no crackles I have reviewed the following results: None Assessment and Plan Subacute cough (Primary) - predniSONE 10 MG Oral Tablet (Deltasone); Take 5 tabs for 2 days, 4 tabs for 2 days, 3 tabs for 2days, 2 tabs for 2 days 1 tab for 2 days - Doxycycline Hyclate 100 MG Oral Capsule; Take 1 Capsule by mouth in the morning and 1 Capsule before bedtime. Do all this for 10 days. Until gone.. - Budesonide-Formoterol Fumarate 160-4.5 MCG/ACT Inhalation Aerosol (Symbicort); Inhale 2 Puffs by mouth in the morning and 2 Puffs before bedtime. Advised hydration. Advised daily vit C. If needed PPI. Hypertensive kidney disease with stage 3a chronic kidney disease (HCC) SVT (supraventricular tachycardia) (HCC) HR seems always above 100. Acquired hypothyroidism On levoxyl. Dyslipidemia, goal LDL below 100 Acute maxillary sinusitis, recurrence not specified - predniSONE 10 MG Oral Tablet (Deltasone); Take 5 tabs for 2 days, 4 tabs for 2 days, 3 tabs for 2days, 2 tabs for 2 days 1 tab for 2 days - Doxycycline Hyclate 100 MG Oral Capsule; Take 1 Capsule by mouth in the morning and 1 Capsule before bedtime. Do all this for 10 days. Until gone.. - Budesonide-Formoterol Fumarate 160-4.5 MCG/ACT Inhalation Aerosol (Symbicort); Inhale 2 Puffs by mouth in the morning and 2 Puffs before bedtime. Wrap-Up Time: I spent a total of 30-39 minutes (exact time 30 mins) on the date of service in preparation, delivery, and documentation of the care provided to Gabby Velásquez excluding any time spent in the performance of separately billed services. documented in this encounter Nursing Notes * Mandy Castellanos LPN - 09/12/2024 4:01 PM EST The patient has been properly identified by confirmation of name and date of . Chief Complaint Patient presents with Acute cough Patient here for URI symptoms, started last Wednesday, has cough-back hurts from coughing-non productive, nasal congestion. Went to urgent care Wednesday was given Tessalon Pearles. States they did test for flu/covid was negative. documented in this encounter Plan of Treatment Upcoming Encounters Date Type Department Care Team (Late st Contact Info) Description 09/27/2024 11:30 AM EDT Office Visit Otolaryngology [facility] [address] [place] [address] [address] Dennise Guerra PA-C [address] [place] [address] 02/22/2025 8:30 AM EDT Office Visit Cardiology, [facility] [address] [place] [address] [address] Conchis Urrutia PA-C [address] [place] [address] 05/03/2025 10:00 AM EDT Office Visit Orthopaedics Spine Surgery, [place]any [address] [place] [address] Brooke Brooke, SHRIMP POND LABORER [address] [place] [address] Health [...] Additional history exists CKD PHOS USE SMARTSET 82063 04/09/202503/20, 03/23/2024, 02/26/2023, Additional history exists CKD HGB USE SMARTSET 05365 04/22/202504/22, 04/22/2024, 04/11/2024, Additional history exists Cologuard [...] on patient's age to complete this topic Meningitis B Vaccine (Bexsero/Trumemba) Aged Out No longer eligible based on patient's age to complete this topic documented as of this encounter Medical Devices Implanted Type Area Sound Ranging Crewmember Device Identifier Shelf Expiration Date Model / Serial / Lot Screw Implanted:Qty : 4 on 12/24/2021 by Jules Sanchez MD at OR [facility] Screw N/A: Spine Lumbar [employer] 04.639.645 / / Lens Intraoc 20.0 - [id number] - [id number] Implanted:Qty : 1 on 06/26/2021 by Madhu Romero MD at OR [facility] Left: Eye BAUSCH & LOMB 03/18/2026 [id number] / [id number] / [id number] Lens Intraoc 19.5 - [id number] - [id number] Implanted:Qty : 1 on 07/29/2021 by Madhu Romero MD at OR [facility] Right: Eye BAUSCH & LOMB 02/15/2026 [id number] / [id number] / [id number] Graft Bone Dbm Matrix 2.5x5cm - [id number] - [id number] Implanted:Qty : 1 on 12/24/2021 by Jules Sanchez MD at OR [facility] N/A: Spine Lumbar [employer] [id number] 06/09/2024 [id number] / [id number] / LOT NA Vitoss Bimodal Foam Pack 2.5cc - [id number] - [id number] Implanted:Qty : 1 on 12/24/2021 by Jules Sanchez MD at OR [facility] N/A: Spine Lumbar JESUS : SPINE [id number] 10/13/2022 / [id number] / [id number] Vitoss Bimodal Foam Pack 2.5cc - [id number] - [id number] Implanted:Qty : 1 on 12/24/2021 by Jules Sanchez MD at OR [facility] N/A: Spine Lumbar JESUS : SPINE [id number] 10/13/2022 / [id number] / [id number] Head Poly Top Load Matrix - [id number] Implanted:Qty : 4 on 12/24/2021 by Jules Sanchez MD at OR [facility] N/A: Spine Lumbar SYNTHES : DEPUY 632.001 / / Cap Locking W/O Saddle Matrix - [id number] Implanted:Qty : 4 on 12/24/2021 by Jules Sanchez MD at OR [facility] N/A: Spine Lumbar SYNTHES : DEPUY 632.099 / / Graft Bone Infuse Kit Xsmall - [id number] - [id number] Implanted:Qty : 1 on 12/24/2021 by Jules Sanchez MD at OR [facility] N/A: Spine Lumbar [employer] : NEUROLOGIC PAIN [id number] 10/16/2022 [id number] / [id number] / [id number] Sandoval Implanted:Qty : 2 on 12/24/2021 by Jules Sanchez MD at OR [facility] N/A: Spine Lumbar DEPU[employer] SPINE INC 636.035 / / Cage Implanted:Qty : 1 on 12/24/2021 by Jules Sanchez MD at OR [facility] N/A: Spine Lumbar [employer] [id number] / / documented as of this encounter Visit Diagnoses Diagnosis Subacute cough- Primary Cough Hypertensive kidney disease with stage 3a chronic kidney disease (HCC) SVT (supraventricular tachycardia) (HCC) Other specified cardiac dysrhythmias Acquired hypothyroidism Unspecified hypothyroidism Dyslipidemia, goal LDL below 100 Other and unspecified hyperlipidemia Acute maxillary sinusitis, recurrence not specified documented in this encounter Advance Directives * [...] Directives occurred with: Not Discussed Care Teams Chrome Tanner Relationship Specialty Start Date End Date Vivian Pena PA-C [address] [facility] [place] [address] PCP - General Physician Cellophane Press Operator 01/28/24 documented as of this encounter
--- OUTSIDE RECORDS SUMMARY | 2024-09-13 09:55 | External Medical Summary | Summary of Care ---
Author Name Unknown Organization [facility] Address [address] [facility] [place] [address] Phone [phone] Care Team Providers Care Cancer Genetic Counselor Name Role Phone MarciVivian benson JIMI Primary Care Provider [phone] Reason for Visit * Reason Comments Follow Up HX lumbar decompress ion / fusion 12/24/21Doing well. X rays ordered Encounter Details Date Type Department Care Team (Late st Contact Info) Description 05/02/2024 2:15 PM EDT Office Visit Orthopaedics Spine Surgery, Fany [facility] [address] [place] [address] Jules Sanchez MD [address] [place] [address] Status post lumbar spine surgery for decompression of spinal cord* Allergies Active Allergy Reactions Criticality Noted Date Comments Cephalexin 10/07/2005 Nausea and vomitting Fluconazole 05/02/2010 Nauseated Erythromycin 04/20/2000 nausea Nitrofuran Derivatives 04/20/2000 nausea Penicillins 04/20/2000 in childhood Sulfa Antibiotics 04/20/2000 in childhood documented as of this encounter (statuses as of 05/02/2024) Medications Medication Sig Dispensed Refills Start Date [...] as of this encounter (statuses as of 05/02/2024) Active Problems Problem Noted Date Diagnosed Date [...] as of this encounter (statuses as of 05/02/2024) Resolved Problems Problem Noted Date Diagnosed Date Resolved Date Gall stone pancreatitis 04/10/2024 09/2 10/2023 Abdominal pain, RUQ (right upper quadrant) 04/09/2024 [...] as of this encounter (statuses as of 05/02/2024) Immunizations Name Administration Dates Next Due COVID-19 [...] Sign Reading Time Taken Comments Blood Pressure - - Pulse - - Temperature 36.2 C (97.2 F) 05/02/2024 2:03 PM ED T Respiratory Rate - - Oxygen Saturation - - Inhaled Oxygen Concentration - - Weight - - Height - - Body Mass Index - - documented in this encounter Functional Status Functional [...] (15 years old or older) No 04/09/20 24 Cognitive Status Response Date of Assessm ent Because of a physical, menta l, or emotional condition, do you have serious difficulty concentrating, remembering, or making decisions? (5 years old or older) No 04/09/2024 documented as of this encounter Progress Notes * Jules Sanchez MD - 05/02/2024 2:10 PM EDT Date of service: 05/02/2024 Gabby Velásquez is a 68 year old female presents for a follow up visit. Patient is over 2 years post surgery and reports good relief of back pain and radiculopathy symptoms. She denies any new complaints. She is pleased with the overall surgical outcome. Prior history: HX lumbar decompression / fusion 12/24/21 Allergies: Cephalexin, Diflucan [fluconazole], Erythromycin, Nitrofuran derivatives, Penicillins, and Sulfa antibiotics The past medical, surgical, medication, family, social history was reviewed and has been documentedelsewhere in the chart ROS: Negative except as outlined in HPI Vitals: Temp 36.2 C (97.2 F) (Skin) There is no height or weight on file to calculate BMI. Physical Exam: General: alert, healthy and no distress. The general appearance appears normal. Cardiovascular system: Vascular status grossly preserved in the extremities Spine evaluation: Overlying skin unremarkable. No paraspinal swelling in the paraspinal and periscapular region. No obvious deformity. Neurological examination: Gross motor and sensory exam within normal limits Radiological imaging: I independently reviewed the relevant radiological imaging including the x-rays ordered at this visit and discussed with the patient X-rays of the lumbar spine including dynamic view show stable lumbar fusion construct with appropriately placed implants. Spinal alignment is maintained. Assessment & Plan: Pt is a 68 year old female here for the following: Status post lumbar fusion Lumbar spondylosis L3-4 retrolisthesis We discussed the diagnosis, the natural history and treatment options. Patient has done well with the surgery. She denies any new complaints. Additional recommendations: Activity modification as tolerated Follow up: 1 year Patient to reach out earlier if any acute worsening of symptoms. The patient expressed understanding and agreement to the plan. Complexity of decision making: Medium I spent 25 minutes on 05/02/2024 in preparation, delivery and documentation of the care provided tothe patient, excluding any time spent on the performance of the procedure are separately billable service. Jules Sanchez MD This chart was completed in part utilizing Inbox Speech Voice Recognition Software. Grammatical errors, random word insertions, prounoun errors and incomplete sentences are an occasional consequence of this system due to software limitations, ambient noise, and hardware issues. Any formal questions or concerns about the content, text, or information contained within the body of this dictation should be directly addressed to the provider for clarification. documented in this encounter Nursing Notes * Chrystal Darling LPN - 05/02/2024 2:04 PM EDT Chief Complaint Patient presents with Follow Up HX lumbar decompression / fusion 12/24/21 Doing well. X rays ordered documented in this encounter Plan of Treatment Upcoming Encounters Date Type Department Care Team (Late st Contact Info) Description 08/15/2024 11:00 AM EST Office Visit Cardiology, [facility] [address] [address] Conchis Urrutia PA-C [address] [place] [address] 09/27/2024 11:30 AM EDT Office Visit Otolaryngology [facility] [address] [place] [address] Dennise Guerra PA-C [address] [place] [address] 05/03/2025 10:00 AM EDT Office Visit Orthopaedics Spine Surgery, [facility] [place], Fany [address] [place] [address] Brooke Brooke CRNP [address] [place] [phone] Pending Results Name Type Priority Associated Diagnoses Date /Time XR L SPINE COMPLETE Medical Imaging Routine Status post lumbar spine surgery for decompression of spinal cord 05/02/2024 2:22 PM EDT Health Maintenance Due Date Last Done Comments [...] Additional history exists CKD PHOS USE SMARTSET 13612 04/09/202503/20, 03/23/2024, 02/26/2023, Additional history exists CKD HGB USE SMARTSET 88015 04/22/202504/22, 04/22/2024, 04/11/2024, Additional history exists Cologuard [...] this encounter Medical Devices Implanted Type Area Nsh Teacher Device Identifier Shelf Expiration Date Model / Serial / Lot Screw Implanted:Qty : 4 on 12/24/2021 by Jules Sanchez MD at OR [facility] Screw N/A: Spine Lumbar [employer] 04.639.645 / / Lens Intraoc 20.0 - [id number] - [id number] Implanted:Qty : 1 on 06/26/2021 by Madhu Romero MD at OR [facility] Left: Eye BAUSCH [employer] LOMB 03/18/2026 [id number] / [id number] / [id number] Lens Intraoc 19.5 - [id number] - [id number] Implanted:Qty : 1 on 07/29/2021 by Madhu Romero MD at OR [facility] Right: Eye BAUSCH & LOMB 02/15/2026 [id number] / [id number] / [id number] Graft Bone Dbm Matrix 2.5x5cm - [id number] - [id number] Implanted:Qty : 1 on 12/24/2021 by Jules Sanchez MD at OR [facility] N/A: Spine Lumbar [employer] [id number] 06/09/2024 [id number] / [id number] / LOT [id number] Vitoss Bimodal Foam Pack 2.5cc - [id number] - [id number] Implanted:Qty : 1 on 12/24/2021 by Jules Sanchez MD at OR [facility] N/A: Spine Lumbar JESUS : SPINE [id number] 10/13/2022 / [id number] / [id number] Vitoss Bimodal Foam Pack 2.5cc - [id number] - [id number] Implanted:Qty : 1 on 12/24/2021 by Jules Sanchez MD at OR [facility] N/A: Spine Lumbar JESUS : SPINE [id number] 10/13/2022 / [id number] / [id number] Head Poly Top Load Matrix - [id number] Implanted:Qty : 4 on 12/24/2021 by Jules Sanchez MD at OR [facility] N/A: Spine Lumbar SYNTHES : DEPUY .632.001 / / Cap Locking W/O Saddle Matrix - [id number] Implanted:Qty : 4 on 12/24/2021 by Jules Sanchez MD at OR [facility] N/A: Spine Lumbar SYNTHES : DEPUY 632.099 / / Graft Bone Infuse Kit Xsmall - [id number] - [id number] Implanted:Qty : 1 on 12/24/2021 by Jules Sanchez MD at OR [facility] N/A: Spine Lumbar [employer] : NEUROLOGIC PAIN [id number] 10/16/2022 [id number] / [id number] / [id number] Sandoval Implanted:Qty : 2 on 12/24/2021 by Jules Sanchez MD at OR [facility] N/A: Spine Lumbar DE[employer] SPINE INC 04636.035 / / Cage Implanted:Qty : 1 on 12/24/2021 by Jules Sanchez MD at OR [facility] N/A: Spine Lumbar [employer] [id number] / / documented as of this encounter Visit Diagnoses Diagnosis Status post lumbar spine surgery for decompression of spinal cord- Primary documented in this encounter Advance Directives * [...] Directives occurred with: Not Discussed Care Teams Cancer Genetic Counselor Relationship Specialty Start Date End Date Becky October JIMI [address] [place], [place] [address] PCP - General Physician Support Merchandiser 01/28/24 documented as of this encounter
--- OUTSIDE RECORDS SUMMARY | 2024-09-13 09:55 | External Medical Summary | Summary of Care ---
Author Name Unknown Organization [facility] Address [address] [facility] [place] [address] Phone [phone] Care Team Providers Care Sleep Lab Technician Name Role Phone MarciVivian benson Mohit KRAUSE Primary Care Provider Reason for Visit * Reason Comments Outpatient Testing Encounter Details Date Type Department Care Team (Late st Contact Info) Description 04/22/2024 10:00 AM EDT Laboratory [facility], [facility] [address] [facility] [place] [phone] [facility] [address] [facility] [address] [employer] Other*[id number] Allergies Active Allergy Reactions Criticality Noted Date Comments Cephalexin 10/07/2005 Nausea and vomitting Fluconazole 05/02/2010 Nauseated Erythromycin 04/20/2000 nausea Nitrofuran Derivatives 04/20/2000 nausea Penicillins 04/20/2000 in childhood Sulfa Antibiotics 04/20/2000 in childhood documented as of this encounter (statuses as of 04/22/2024) Medications Medication Sig Dispensed Refills Start Date [...] as of this encounter (statuses as of 04/22/2024) Active Problems Problem Noted Date Diagnosed Date [...] as of this encounter (statuses as of 04/22/2024) Resolved Problems Problem Noted Date Diagnosed Date Resolved Date Gall stone pancreatitis 04/10/2024 09/10/2023 Abdominal pain, [...] as of this encounter (statuses as of 04/22/2024) Immunizations Name Administration Dates Next Due COVID-19 [...] [address] [place] [address] Alan Torres MD [address] [place] [address] 05/02/2024 2:15 PM EDT Office Visit Orthopaedics Spine Surgery, [facility] [address] [place] [address] Jules Sanchez MD [address] [place] [address] 08/15/2024 11:00 AM EST Office Visit Cardiology, [facility] [address] [place] [phone] Conchis Urrutia PA-C [address] [place] [address] 09/27/2024 11:30 AM EDT Office Visit Otolaryngology [facility] [address] [place] [address] Dennise Guerra PA-C [address] [place] [address] Pending Results Name Type Priority Associated Diagnoses Date /Time MYCODE SUBSEQUENT ADULT Lab Routine [employer] Other*[id number] 04/22/2024 9:42 AM EDT MYCODE SST1 Lab Routine [employer] Other*[id number] 04/22/2024 9:42 AM EDT MYCODE SST2 Lab Routine [employer] Other*[id number] 04/22/2024 9:42 AM EDT Health Maintenance Due Date Last Done Comments Fecal Occult Blood Test 1998 Sigmoidoscopy 1998 Colonoscopy 08/12/2014 08/12/2004 Zoster Vaccines (3 of 3) 11/05/2021 09/10/2021, 01/2014 Adult Wellness Visit 06/15/2023 06/15/2022 DTap/Tdap Vaccines (2 - Td or Tdap) 07/28/2023 07/28/2013, 05/19/2004, 02/12/1994 COVID-19 Vaccine (2 - season) 2024 09/14/2020 GFR 10/09/2024 04/11/2024, 03/20, 03/23/2024, Additional history exists Mammogram 12/29/2024 12/30/2023, 12/17, 12/28/2022, Additional history exists Depression Screening 01/30/2025 01/31/2024 Albumin/Creatinine Ratio 03/23/2025 024, 02/26/2023, 06/15/2022, Additional history exists TSH 03/23/2025 03/23/2024, 11/17, 12/17/2021, Additional history exists CKD PHOS USE SMARTSET 69298 04/09/202503/20, 03/23/2024, 02/26/2023, Additional history exists CKD HGB USE SMARTSET 45256 04/11/202504/22, 04/22/2024, 04/11/2024, Additional history exists Cologuard 01/10/2026 [...] this encounter Medical Devices Implanted Type Area Retail Pharmacy Manager Device Identifier Shelf Expiration Date Model / Serial / Lot Screw Implanted:Qty : 4 on 12/24/2021 by Jules Sanchez MD at OR [facility] Screw N/A: Spine Lumbar [employer] 04.639.645 / / Lens Intraoc 20.0 - [id number] - [id number] Implanted:Qty : 1 on 06/26/2021 by Madhu Romero MD at OR [facility] Left: Eye BAUSCH [employer] LOMB 03/18/2026 [id number] / [id number] / [id number] Lens Intraoc 19.5 - [id number] - [id number] Implanted:Qty : 1 on 07/29/2021 by Madhu Romero MD at OR [facility] Right: Eye BAUSCH & LOMB 02/15/2026 [id number] / [id number] / [id number] Graft Bone Dbm Matrix 2.5x5cm - [id number] - [id number] Implanted:Qty : 1 on 12/24/2021 by Jules Sanchez MD at OR [facility] N/A: Spine Lumbar [employer] [id number] 06/09/2024 [id number] / [id number] / LOT NA Vitoss Bimodal Foam Pack 2.5cc - [id number] - [id number] Implanted:Qty : 1 on 12/24/2021 by Jules Sanchez MD at OR [facility] N/A: Spine Lumbar JESUS : SPINE [id number] 10/13/2022 / [id number] / [id number] Vitoss Bimodal Foam Pack 2.5cc - [id number] - [id number] Implanted:Qty : 1 on 12/24/2021 by Jules Sanchez MD at OR [facility] N/A: Spine Lumbar JESUS : SPINE [id number] 10/13/2022 / [id number] / [id number] Head Poly Top Load Matrix - [id number] Implanted:Qty : 4 on 12/24/2021 by Jules Sanchez MD at OR [facility] N/A: Spine Lumbar SYNTHES : DEPUY 632.001 / / Cap Locking W/O Saddle Matrix - [id number] Implanted:Qty : 4 on 12/24/2021 by Jules Sanchez MD at OR [facility] N/A: Spine Lumbar SYNTHES : DEPUY 632.099 / / Graft Bone Infuse Kit Xsmall - [id number] - [id number] Implanted:Qty : 1 on 12/24/2021 by Jules Sanchez MD at OR [facility] N/A: Spine Lumbar [employer] : NEUROLOGIC PAIN [id number] 10/16/2022 [id number] / [id number] / [id number] [place]oval Implanted:Qty : 2 on 12/24/2021 by Jules Sanchez MD at OR [facility] N/A: Spine Lumbar DEPUY SPINE INC 04636.035 / / Cage Implanted:Qty : 1 on 12/24/2021 by Jules Sanchez MD at OR [facility] N/A: Spine Lumbar [employer] [id number] / / documented as of this encounter Visit Diagnoses Diagnosis [employer] Other*[id number] documented in this encounter Advance Directives * [...] Directives occurred with: Not Discussed Care Teams Sleep Lab Technician Relationship Specialty Start Date End Date Becky Vivian JIMI [address] [place] [address] PCP - General Physician Validation Intern 01/28/24 documented as of this encounter
--- OUTSIDE RECORDS SUMMARY | 2024-09-13 09:56 | External Medical Summary | Summary of Care ---
Author Name Unknown Organization [facility] Address [address] [facility] [place] [address] Phone [phone] Care Team Providers Care Public Health Internship Name Role Phone Vivian Pena JIMI Primary Care Provider [phone] Encounter Details Date Type Department Care Team (Late st Contact Info) Description 04/08/2024 Result Scan Unspecified Department <No scans attached> Allergies Active Allergy Reactions Criticality Noted Date Comments Cephalexin 10/07/2005 Nausea and vomitting Fluconazole 05/02/2010 Nauseated Erythromycin 04/20/2000 nausea Nitrofuran Derivatives 04/20/2000 nausea Penicillins 04/20/2000 in childhood Sulfa Antibiotics 04/20/2000 in childhood documented as of this encounter (statuses as of 04/10/2024) Medications Medication Sig Dispensed Refills Start Date End Date Status Estrogens Conjugated 0.45 MG Oral Tablet (Premarin) Take 1 tablet by mouth every other day. 45 Tablet 3 03/03/2023 Suspended Additional Information Nortriptyline HCl 25 MG Oral Capsule (Pamelor)Indication s:Meniere's disease, unspecified laterality Take 2 Capsules by mouth daily. 180 Capsule 1 09/23/2023 Suspended Additional Information Premarin 0.625 MG/GM Vaginal Cream (Estrogens Conjugated)Indicati ons:Postmenopausal atrophic vaginitis APPLY 1/2 APPLICATOR AT BEDTIME 2-3 TIMES A WEEK. 90 g 10/20/2023 Suspended Additional Information Vitamin D3 25 MCG (1000 UT) Oral Capsule (Cholecalciferol) Take 1 Capsule by mouth in the morning. Suspended tiZANidine HCl 4 MG Oral Tablet Take 0.5 Tablets by mouth every 8 hours as needed for Muscle spasms. 90 Tablet 1 01/17/2024 Suspended Additional Information Lisinopril 10 MG Oral Tablet (Prinivil)Indicatio ns:Essential hypertension with goal blood pressure less than 140/90 TAKE ONE TABLET BY MOUTH EVERY DAY 90 Tablet 3 01/24/2024 Suspended Additional Information Benzonatate 100 MG Oral Capsule (Tessalon Perles)Indications: Acute cough Take 1 Capsule by mouth 3 times a day as needed for Cough. Do not cut, crush, or chew. 30 Capsule 02/04/2024 Suspended Additional Information Levothyroxine Sodium 75 MCG Oral Tablet (Levoxyl)Indication s:Acquired hypothyroidism TAKE ONE-HALF TABLET BY MOUTH EVERY DAY ON AN EMPTY STOMACH 45 Tablet 03/16/2024 03/16/20 Suspended Additional Information documented as of this encounter (statuses as of 04/10/2024) Active Problems Problem Noted Date Diagnosed Date Abdominal pain, RUQ (right upper quadrant) 04/09 Acute calculous cholecystitis 04/09/2024 Elevated liver transaminase level 04/09/2024 Hypertensive kidney [...] as of this encounter (statuses as of 04/10/2024) Resolved Problems Problem Noted Date Diagnosed Date Resolved Date Major depressive disorder with single episode 09/10/19 [...] as of this encounter (statuses as of 04/10/2024) Immunizations Name Administration Dates Next Due COVID-19 mRNA, LNP-s, No Pre serve, 2-Dose Series (LifeOnKey) 09/14/2020 Pneumococcal Conjugate Vacc, 13 Valent (Prevnar) 06/24/2018 Pneumococcal Polysaccharide PPV23 (Pneumovax) 09/27/2019 Season Influenza, Quad, PF, Adjuvanted, 65+ Yrs, IM (FLUAD) 03/29/2020 Seasonal Influenza Virus Vac cine, Unspecified Formulation 04/15/2021,03/29/2020,03/29/2019,05/14,04/22/2017,06/02/2016,04/24/2014 ,05/02/2013,04/23/2012,06/01/2011 Seasonal Influenza, PF, 6 M & above, IM , (FluLaval or Fluzone) 05/14/2018,04/22/2017 Seasonal Influenza, Quadriva lent Hd (Fluzone Hd) 04/27/2023,04/15/2022,04/15/2021 Seasonal Influenza, Trivalen t, (IIV3), PF, (Fluzone) 04/23/2012 Seasonal Influenza, Trivalen t, (IIV3), with Preserv, (Fluzone) 06/02/2016,05/07/2015,04/24/2014,05/02,06/01/2011 Seasonal Influenza, Trivalen t, Adjuvanted, 65+ YRS, [...] you have serious difficulty h earing? No 12/24/2021 Are you blind or do you have serious difficulty seeing, even when wearing glasses? No 12/24/2021 Do you have serious difficul ty walking or climbing stairs? (5 years old or older) No 12/25/2021 Do you have difficulty dress ing or bathing? (5 years old or older) No 12/24/2021 Because of a physical, menta l, or emotional condition, do you have difficulty doing errands alone such as visiting a doctor s office or shopping? (15 years old or older) No 12/25/19 22 Cognitive Status Response Date of Assessm ent Because of a physical, menta l, or emotional condition, do you have serious difficulty concentrating, remembering, or making decisions? (5 years old or older) No 12/24/2021 documented as of this encounter Plan of Treatment Upcoming Encounters Date Type Department Care Team (Late st Contact Info) Description 05/02/2024 2:15 PM EDT Office Visit Orthopaedics Spine Surgery, Fany Verduzco [address] [place] [address] Jules Sanchez MD [address] [place] [address] 08/15/2024 11:00 AM EST Office Visit Cardiology, [facility] [address] [place] [address] Conchis Urrutia PA-C [address] [place] [address] 09/27/2024 11:30 AM EDT Office Visit Otolaryngology [facility] [address] [place] [address] Dennise Guerra PA-C [address] [place] [address] Scheduled Procedures Name Priority Associated Diagnoses Date/Ti me LAPAROSCOPIC CHOLECYSTECTOMY Acute calculous cholecystitis 04/10/2024 12:30 PM EDT Health Maintenance Due Date Last Done Comments Fecal Occult Blood Test 1998 Sigmoidoscopy 1998 Colonoscopy 08/12/2014 08/12/2004 Zoster Vaccines (3 of 3) 11/05/2021 09/10/2021, 01/2014 Adult Wellness Visit 06/15/2023 06/15/2022 DTap/Tdap Vaccines (2 - Td or Tdap) 07/28/2023 07/28/2013, 05/19/2004, 02/12/1994 COVID-19 Vaccine (2 - 2024-25 season) 2024 09/14/2020 Influenza Vaccine (FLU shot) (#1) 2024 04/27/2023, 04/15/2022, 04/15/2021, Additional history exists GFR 10/07/2024 04/09/2024, 090 11/2023, 02/26/2023, Additional history exists Mammogram 12/29/2024 12/30/2023, 12/17, 12/28/2022, Additional history exists Depression Screening 01/30/2025 01/31/2024 Albumin/Creatinine Ratio 03/23/2025 024, 02/26/2023, 06/15/2022, Additional history exists TSH 03/23/2025 03/23/2024, 11/17, 12/17/2021, Additional history exists CKD HGB USE SMARTSET 57101 04/09/202504/09, 03/23/2024, 02/26/2023, Additional history exists CKD PHOS USE SMARTSET 83215 04/09/202503/20, 03/23/2024, 02/26/2023, Additional history exists Cologuard 01/10/2026 01/10/2023, 12/17, 12/30/2022, Additional history exists Colorectal Cancer Screening 01/10/2026 DXA Scan 01/02/2028 01/01/2021, 12/17, 08/10/2012, Additional history exists Lipid Panel 11/24/2028 11/25/2023, 02/16, 12/17/2021, Additional history exists Pneumococcal Vaccine: 65+ Years Completed 09/27/2019, 06/24/2018 HPV (Gardasil) Vaccine Aged Out No lo nger eligible based on patient's age to complete this topic Hepatitis B Vaccine Aged Out No longe r eligible based on patient's age to complete this topic MENINGOCOCCAL (MENACTRA/MENVEO) Aged Out No longer eligible based on patient's age to complete this topic documented as of this encounter Medical Devices Implanted Type Area Yard Supervisor Device Identifier Shelf Expiration Date Model / Serial / Lot Screw Implanted:Qty : 4 on 12/24/2021 by Jules Sanchez MD at OR [facility] Screw N/A: Spine Lumbar [employer] 04.639.645 / / Lens Intraoc 20.0 - [id number] - [id number] Implanted:Qty : 1 on 06/26/2021 by Madhu Romero MD at OR [facility] Left: Eye [employer]OM[employer] 03/18/2026 [id number] / [id number] / [id number] Lens Intraoc 19.5 - [id number] - [id number] Implanted:Qty : 1 on 07/29/2021 by Madhu Romero MD at OR [facility] Right: Eye BAUSCH [employer] LOMB 02/15/2026 [id number] / [id number] / [id number] Graft Bone Dbm Matrix 2.5x5cm - [id number] - [id number] Implanted:Qty : 1 on 12/24/2021 by Jules Sanchez MD at OR [facility] N/A: Spine Lumbar [employer] [id number] 06/09/2024 [id number] / [id number] / [id number] Vitoss Bimodal Foam Pack 2.5cc - [id number] - [id number] Implanted:Qty : 1 on 12/24/2021 by Jules Sanchez MD at OR [facility] N/A: Spine Lumbar JESUS : SPINE [id number] 10/13/2022 / [id number] / [id number] Vitoss Bimodal Foam Pack 2.5cc - [id number] - [id number] Implanted:Qty : 1 on 12/24/2021 by Jules Sanchez MD at OR [facility] N/A: Spine Lumbar JESUS : SPINE [id number] 10/13/2022 / [id number] / [id number] Head Poly Top Load Matrix - [id number] Implanted:Qty : 4 on 12/24/2021 by Jules Sanchez MD at OR [facility] N/A: Spine Lumbar SYNTHES : DEPUY 04.632.001 / / Cap Locking W/O Saddle Matrix - [id number] Implanted:Qty : 4 on 12/24/2021 by Jules Sanchez MD at OR [facility] N/A: Spine Lumbar SYNTHES : DEPUY 099 / / Graft Bone Infuse Kit Xsmall - [id number] - [id number] Implanted:Qty : 1 on 12/24/2021 by Jules Sanchez MD at OR [facility] N/A: Spine Lumbar [employer] : NEUROLOGIC PAIN [id number] 10/16/2022 [id number] / [id number] / [id number] Sandoval Implanted:Qty : 2 on 12/24/2021 by Jules Sanchez MD at OR [facility] N/A: Spine Lumbar [employer] 636.035 / / Cage Implanted:Qty : 1 on 12/24/2021 by Jules Sanchez MD at OR [facility] N/A: Spine Lumbar [employer] [id number] / / documented as of this encounter Procedures Procedure Name Priority Date/Time Associated Diagnosis Comments RADIOLOGY SCANNED RESULT 04/08/2024 documented in this encounter Results * RADIOLOGY SCANNED RESULT (04/08/2024) 04/08/2024 No Physician Data Unknown DIAGNOSTIC RAD IOLOGY SERVICES documented in this encounter Advance Directives * Full Code (Latest Code Status on File) Date Activated Date Inactivated Comments 04/09/2024 10:35 AM This order re flects the patients wishes [...] Directives occurred with: Not Discussed Care Teams Public Health Internship Relationship Specialty Start Date End Date Becky October ABDULAZIZ RuedaC [address] [place] [address] PCP - General Physician Mail Messenger 01/28/24 documented as of this encounter
--- OUTSIDE RECORDS SUMMARY | 2024-09-13 09:56 | External Medical Summary ---
Author Name Unknown Address Unknown Organization K1F:[facility] - [address] [place] [address] Laboratory Report Ordering Provider Test Date Status CARLITOS VALDEZDEVAN 04/09/2024 11:07:00 Final Observation Date Value Abnormality Reference (Units ) Status CRP, low-sensitivity 04/09/2024 11:07:00 22 Above high normal <=5 (mg/L) Final Performing Location [facility] - [address] [place] [address]
--- OUTSIDE RECORDS SUMMARY | 2024-09-13 09:56 | External Medical Summary | Summary of Care ---
Author Name Unknown Organization [facility] Address [address] [facility] [place] [address] Phone [phone] Care Team Providers Care Promotions Producer Name Role Phone Vivian Levy PA-C Primary Care Provider [phone] Reason for Visit * Reason Onset Date Comments Hospital Follow-Up 04/11/2024 Encounter Details Date Type Department Care Team (Late st Contact Info) Description 04/11/2024 Telephone Family Practice [facility] [address] [place] [address] Vivian Levy PA-C [address] [facility] [place] [address] Hospital Follow-Up Allergies Active Allergy Reactions Criticality Noted Date Comments Cephalexin 10/07/2005 Nausea and vomitting Fluconazole 05/02/2010 Nauseated Erythromycin 04/20/2000 nausea Nitrofuran Derivatives 04/20/2000 nausea Penicillins 04/20/2000 in childhood Sulfa Antibiotics 04/20/2000 in childhood documented as of this encounter (statuses as of 04/12/2024) Medications Medication Sig Dispensed Refills Start Date End Date Status Estrogens Conjugated 0.45 MG Oral Tablet (Premarin) Take 1 tablet by mouth every other day. 45 Tablet 3 03/03/2023 Active Nortriptyline HCl 25 MG Oral Capsule (Pamelor)Indications :Meniere's disease, unspecified laterality Take 2 Capsules by mouth daily. 180 Capsule 1 09/23/2023 Active Premarin 0.625 MG/GM Vaginal Cream (Estrogens Conjugated)Indicatio ns:Postmenopausal atrophic vaginitis APPLY 1/2 APPLICATOR AT BEDTIME 2-3 TIMES A WEEK. 90 g 10/20/2023 Active Vitamin D3 25 MCG (1000 UT) Oral Capsule (Cholecalciferol) Take 1 Capsule by mouth in the morning. Active tiZANidine HCl 4 MG Oral Tablet Take 0.5 Tablets by mouth every 8 hours as needed for Muscle spasms. 90 Tablet 1 01/17/2024 Active Levothyroxine Sodium 75 MCG Oral Tablet (Levoxyl)Indications :Acquired hypothyroidism TAKE ONE-HALF TABLET BY MOUTH EVERY DAY ON AN EMPTY STOMACH 45 Tablet 03/16/2024 Active Lisinopril 10 MG Oral Tablet (Prinivil)Indication s:Essential hypertension with goal blood pressure less than 140/90 Take 1 Tablet by mouth in the morning. Do not start before April 13, 2024. 04/13/2024 Active documented as of this encounter (statuses as of 04/12/2024) Active Problems Problem Noted Date Diagnosed Date [...] as of this encounter (statuses as of 04/12/2024) Resolved Problems Problem Noted Date Diagnosed Date [...] as of this encounter (statuses as of 04/12/2024) Immunizations Name Administration Dates Next Due COVID-19 mRNA, LNP-s, No Pre serve, 2-Dose Series ([employer]) 09/14/2020 Pneumococcal Conjugate Vacc, 13 Valent (Prevnar) [...] No 04/09/2024 documented as of this encounter Miscellaneous Notes * Telephone Encounter - Elke Prescott OSA - 04/12/2024 8:08 AM EDT Patient is scheduled for a HD on 04/19/2024 * Telephone Encounter - Radha Guillen OSA - 04/11/2024 4:48 PM EDT Patient Name: JUAN CARLOS PEREZ([id number]) Sex: Female : 1955 PCP: VIVIAN LEVY Center: [facility] [place] Types of orders made on 04/11/2024: Communication, Diet, IP Post Discharge , Lab, Medications Order Date:04/11/2024 Ordering User:MICHELINE PALACIOS [[id number]] Attending Provider:Louis Sifuentes MD [[id number]] Authorizing Provider: Micheline Palacios MD, PhD [[id number]] Department:[address] [place] [address][[id number]] Order Specific Information Order: RETURN APPT [CUSTOM: [id number]] Order #: [id number]: 1 Priority: Routine Class: Nursing Unit Department (Single Entry) -> Family Practice Appt Needed Within: (Specify # of Days, Weeks, Months) -> 1 Wk Released on: 04/11/2024 2:09 PM Priority: Routine Class: Nursing Unit Department (Single Entry) -> Family Practice Appt Needed Within: (Specify # of Days, Weeks, Months) -> 1 Wk Released on: 04/11/2024 2:09 PM documented in this encounter Plan of Treatment Upcoming Encounters Date Type Department Care Team (Late st Contact Info) Description 04/19/2024 12:00 PM EDT [facility] [address] [facility] [address] [place] [address] Vivian Levy PA-C [address] [place] [address] 05/01/2024 3:30 PM EDT Office Visit General Surgery Fany Alcantara [address] [place] [address] Alan Torres MD [address] [place] [address] 05/02/2024 2:15 PM EDT Office Visit Orthopaedics Spine Surgery, Fany Verduzco [address] [place] [address] Jules Sanchez MD [address] [place] [address] 08/15/2024 11:00 AM EST Office Visit Cardiology, [facility] [address] [place] [address] Conchis Urrutia PA-C [address] [place] [address] 09/27/2024 11:30 AM EDT Office Visit Otolaryngology [facility] [address] [place] [address] Dennise Guerra PA-C [address] [place] [address] Health Maintenance Due Date Last Done Comments [...] Additional history exists CKD PHOS USE SMARTSET 67703 04/09/202503/20, 03/23/2024, 02/26/2023, Additional history exists CKD HGB USE SMARTSET 27646 04/11/202504/11, 04/09/2024, 03/23/2024, Additional history exists Cologuard 01/10/2026 01/10/2023, 12/17, [...] this encounter Medical Devices Implanted Type Area Informatica Device Identifier Shelf Expiration Date Model / Serial / Lot Screw Implanted:Qty : 4 on 12/24/2021 by Jules Sanchez MD at OR [facility] Screw N/A: Spine Lumbar [employer] 04.639.645 / / Lens Intraoc 20.0 - [id number] - [id number] Implanted:Qty : 1 on 06/26/2021 by Madhu Romero MD at OR [facility] Left: Eye BAUSCH & LOMB 03/18/2026 [id number] / [id number] / [id number] Lens Intraoc 19.5 - [id number] - [id number] Implanted:Qty : 1 on 07/29/2021 by Madhu Romero MD at OR [facility] Right: Eye BAUSCH & LOMB 02/15/2026 [id number] / [id number] / [id number] Graft Bone Dbm Matrix 2.5x5cm - [id number] - [id number] Implanted:Qty : 1 on 12/24/2021 by Jules Sanchez MD at OR [facility] N/A: Spine Lumbar [employer] [id number] 06/09/2024 [id number] / [id number] / [id number] Vitoss Bimodal Foam Pack 2.5cc - [id number] - [id number] Implanted:Qty : 1 on 12/24/2021 by Jules Sanchez MD at OR [facility] N/A: Spine Lumbar JESUS : SPINE [id number] 10/13/2022 [id number] / [id number] / [id number] Vitoss Bimodal Foam Pack 2.5cc - [id number] - [id number] Implanted:Qty : 1 on 12/24/2021 by Jules Sanchez MD at OR [facility] N/A: Spine Lumbar JESUS : SPINE [id number] 10/13/2022 6201-2157 / [id number] / [id number] Head Poly Top Load Matrix - [id number] Implanted:Qty : 4 on 12/24/2021 by Jules Sanchez MD at OR [facility] N/A: Spine Lumbar SYNTHES : DEPUY [id number] / / Cap Locking W/O Saddle Matrix - [id number] Implanted:Qty : 4 on 12/24/2021 by Jules Sanchez MD at OR [facility] N/A: Spine Lumbar SYNTHES : DEPUY 63099 / / Graft Bone Infuse Kit Xsmall - [id number] - [id number] Implanted:Qty : 1 on 12/24/2021 by Jules Sanchez MD at OR [facility] N/A: Spine Lumbar [employer] : NEUROLOGIC PAIN [id number] 10/16/2022 [id number] / [id number] / [id number] Sandoval Implanted:Qty : 2 on 12/24/2021 by Jules Sanchez MD at OR [facility] N/A: Spine Lumbar DEPUY SPINE INC 04636.035 / / Cage Implanted:Qty : 1 on 12/24/2021 by Jules Sanchez MD at OR [facility] N/A: Spine Lumbar [employer] [id number] / / documented as of this encounter [...] Directives occurred with: Not Discussed Care Teams Promotions Producer Relationship Specialty Start Date End Date Vivian Levy PA-C [address] [place] [address] PCP - General Physician Platform Engineer 01/28/24 documented as of this encounter
--- OUTSIDE RECORDS SUMMARY | 2024-09-13 09:56 | External Medical Summary ---
Author Name Unknown Address Unknown Organization K1F:[facility] - [address] [place] [address] Laboratory Report Ordering Provider Test Date Status BHARATHI TOBIAS 04/11/2024 06:40:00 Final Observation Date Value Abnormality Reference (Units ) Status Magnesium 04/11/2024 06:40:00 2.1 1.5-2.6 (m g/dL) Final Performing Location [facility] - [address] [place] [address]
--- OUTSIDE RECORDS SUMMARY | 2024-09-13 09:56 | External Medical Summary | Summary of Care ---
Author Name Unknown Organization [facility] Address [address] [place] [address] Phone [phone] Care Team Providers Care Supervisor [employer] Name Role Phone Vivian Pena JIMI Primary Care Provider [phone] Reason for Visit * Auth/Cert Specialty Diagnoses / Procedures Referred By Anuj t Referred To Contact Diagnoses Choledocolithiasis Louis Sifuentes MD [address] [place], [place] [id number] Admissions [address] [address] Referral ID Status Reason Start Date Expiration Date Visits Re quested Visits Authorized [id number] Encounter Details Date Type Department Care Team (Latest Contact Info) Description 04/09/2024 9:47 AM EDT - 04/11/2024 2:55 PM EDT Hospital Encounter 5A [facility], [facility] 5th Floor [address] [place] [id number] Louis Sifuentes MD [address] [place] [id number] Alonso Galindo MD [address] [place] [id number] Yolanda Palacios MD, PhD [address] [place] [address] [phone] Pt Handout (on AVS) Discharge Disposition: Home - Self Care Allergies [...] mouth every other day. 45 Tablet 3 3 Active Nortriptyline HCl 25 MG Oral Capsule (Pamelor)Indication s:Meniere's disease, unspecified laterality Take 2 Capsules by mouth daily. 180 Capsule 1 4 Active Premarin 0.625 MG/GM Vaginal Cream (Estrogens Conjugated)Indicati ons:Postmenopausal atrophic vaginitis APPLY 1/2 APPLICATOR AT BEDTIME 2-3 TIMES A WEEK. 90 g 4 Active Vitamin D3 25 MCG (1000 UT) Oral Capsule (Cholecalciferol) Take 1 Capsule by mouth in the morning. Active tiZANidine HCl 4 MG Oral Tablet Take 0.5 Tablets by mouth every 8 hours as needed for Muscle spasms. 90 Tablet 1 4 Active Levothyroxine Sodium 75 MCG Oral Tablet (Levoxyl)Indication s:Acquired hypothyroidism TAKE ONE-HALF TABLET BY MOUTH EVERY DAY ON AN EMPTY STOMACH 45 Tablet 4 03/16/20 25 Active Lisinopril 10 MG Oral Tablet (Prinivil)Indicatio ns:Essential hypertension with goal blood pressure less than 140/90 Take 1 Tablet by mouth in the morning. Do not start before April 13, 2024. 4 Active Lisinopril 10 MG Oral Tablet (Prinivil)Indicatio ns:Essential hypertension with goal blood pressure less than 140/90 TAKE ONE TABLET BY MOUTH EVERY DAY 90 Tablet 3 4 04/11/20 24 Discontinued Doxycycline Hyclate 100 MG Oral CapsuleIndications: Acute non-recurrent maxillary sinusitis Take 1 Capsule by mouth in the morning and 1 Capsule before bedtime. Do all this for 10 days. Until gone.. 20 Capsule 4 04/11/20 24 Discontinued predniSONE 20 MG Oral Tablet (Deltasone)Indicati ons:Acute bronchitis, antibiotics not indicated Take 2 Tablets by mouth in the morning for 5 days. 10 Tablet 4 04/11/20 24 Discontinued Benzonatate 100 MG Oral Capsule (Tessalon Perles)Indications: Acute cough Take 1 Capsule by mouth 3 times a day as needed for Cough. Do not cut, crush, or chew. 30 Capsule 4 04/11/20 24 Discontinued documented as of this encounter (statuses as [...] mRNA, LNP-s, No Pre serve, 2-Dose Series (VMob) 09/14/2020 Pneumococcal Conjugate Vacc, 13 Valent (Prevnar) [...] Sign Reading Time Taken Comments Blood Pressure 120/66 04/11/2024 10:45 AM EDT Pulse 80 04/11/2024 10:45 AM EDT Temperature 36.4 C (97.5 F) 04/11/2024 10:45 AM E DT Respiratory Rate 16 04/11/2024 10:45 AM EDT Oxygen Saturation 95% 04/11/2024 10:45 AM EDT Inhaled Oxygen Concentration - - Weight 68.5 kg (151 lb) 04/11/2024 6:00 AM EDT Height 160 cm (5' 3") 04/09/2024 9:54 AM EDT Body Mass Index 26.75 04/09/2024 9:54 AM EDT documented in this [...] No 04/09/2024 documented as of this encounter Discharge Instructions * Discharge Instr - AVS* Yoladna Palacios MD, PhD - 04/11/2024 2:08 PM EDT Discharge Date: 04-11-2024 The information below provides you with the instructions and the list of medications you need to betaking following discharge from the hospital. If you have any questions, please ask before leaving. If you have questions after leaving, you can reach us at the numbers below. YOUR HOSPITAL PROVIDERS: Discharging Provider: Yolanda Palacios MD, PhD Provider Department: Hospital Medicine To reach this Provider Wednesday through Wednesday (8:00 AM to 4:30 PM) for any questions or test results: Call [phone] For after-hours concerns: Call [phone] and have your provider paged, or the provider warehouse distribution manager for the Department of Hospital Medicine paged. Please note, the discharging provider will not be able to provide you with any medications refills.Please discuss these with your primary care provider. Worsening Symptoms: If you have new symptoms, or your symptoms get worse, please contact your Discharge Provider or Primary Care Provider (PCP). If these providers are not available, you can go to your local [facility] or Urgent Care Clinic during their business hours. In an EMERGENCY situation: Call 911 or go to the nearest emergency room. A BRIEF SUMMARY OF YOUR HOSPITAL STAY: You came to the hospital with: complaint of abdominal pain- transfer from [facility] for gastroenterology care Your main diagnosis at discharge was: You likely had gallstone pancreatitis on presentation which resolved. The stones that caused the problem came from the gallbladder. During this hospital stay you had your gallbladder removed by the general surgeon using a laparoscopy. Operations & Procedures performed: Laparoscopic cholecystectomy Complications: none significant Inpatient test results that are pending at discharge: Pathology report from the gallbladder- pending Advance Directive Documented: Advance Directive Does the Patient have an Advance Directive? No YOUR FOLLOW UP APPOINTMENTS: Primary Care Provider Information: PCP: Vivian Pena PA-C [address] [place] [address] / [facility] [id number] (office) [phone] (fax) An appointment was requested with your PCP (Vivian Pena PA-C) within 7 days. (Please take this form to this visit with your primary care physician.) You need the following studies in the future: Blood work within one week at any [facility] laboratory- The tests were ordered by Dr. Campbell and they include "BMP, CBCw/diff and hepatic function panel" INSTRUCTIONS: Diet: Heart healthy diet, Low fat diet Activity: No strenuous activity for 2-4 weeks and No lifting or pushing or pulling more than 10 lbsfor 2-4 Incision Care: Keep the incision area clean and dry - The incisions may be closed with dissolving sutures or a plastic dressing. In that case, specific wound care may not be needed. Wash your hands before changing the dressing. If you need to change the dressing or care for your wound, follow your doctors specific instructions. Ask your doctor about when it is safe to shower, bathe, or soak in clean water. Never use contaminated water or have pets near your incision. Home care To care for yourself at home: Get plenty of rest. Dont worry if you feel tired for the first couple of weeks after your surgery. Fatigue is common. Nap when you feel tired. Wash the skin around your cut (incision) daily with mild soap and water. It's OK to shower the day after your surgery unless your healthcare provider says not to. Eat your normal diet. But don't eat rich, greasy, or spicy food for a few days. Many surgeons advise a low-fat diet for the first month after surgery. Dont eat fried food during this time. You can walk around the house, do office work, climb stairs, or ride in a car if you feel able to do so. Ask someone to drive you to your appointments for the next [address] you have stopped taking pain medicine. Make sure you can step on the brake pedal with no delay. Eat more fiber and use a stool softener if you are constipated. Pain medicine can cause constipation. Talk with your provider if you need more help. Dont sit in a bathtub, swimming pool, or hot tub until your healthcare provider says its safe. Wait until the incision is closed. Wait until any surgical tubes (drains) are removed. Follow-up care Make a follow-up appointment with your surgeon as advised. Call your healthcare provider if these symptoms dont go away within 1 week after your surgery: Extreme tiredness (fatigue) Pain around the incision Diarrhea or constipation Loss of appetite When to call your healthcare provider Call your healthcare provider right away if you have any of these: Yellowing of your eyes or skin (jaundice) Chills Fever of 100.4F (38.0C) or higher, or as directed by your provider Redness or swelling of the incision Fluid leaking or a bad smell from the incision Incision pain that gets worse Dark or rust-colored urine Stool that is light in color instead of brown Increasing belly pain Rectal bleeding Trouble breathing or shortness of breath Leg swelling documented in this encounter Progress Notes * Yolanda Palacios MD, PhD - 04/10/2024 5:27 PM EDT Images from the original note were not included. [facility] 5A-5131/D INTERVAL HISTORY: 68yF w/ hx of SVT, s/p lumbar lamnectomy, meniere's disease, transfer from OSH for GI consultation for possible gall stone pancreatitis. Subjective: Patient feels improved. Denies ALL abdominal pain. +hungry No active chest pain, no shortness of breath. No history of surgical complication. Had back surgery here a few years ago. Objective Physical Exam Most Recent Vital Signs: BP: 115 mmHg/64 mmHg (04/10/241699) Pulse: 92 (04/10/24 1700) Resp: 18 (04/10/241699) Temp: 36.22 C (04/10/241699) Temp Summary: Temp Min: 35.7 C (96.2 F) Max: 37.1 C (98.8 F) SpO2: 91 % (04/10/241699) O2 flow rate: 5 L/MIN (04/10/24 1500) Supplemental O2 Delivery: Room Air, None (04/10/241699) BP 118/65 | Pulse 88 | Temp 36.1 C (97 F) (Temporal Artery) | Resp 18 | Ht 1.6 m (5' 3") | Wt 67.5 kg (148 lb 14.4 oz) | SpO2 94% | BMI 26.38 kg/m | BSA 1.73 m Vitals reviewed over last 24 hours General: well appearing pleasant middle age female, NAD HEEN: EOMI, no scleral icterus, NECK: no stridor, no JVD PULM: clear bilaterally, no adventitious lung souns CVS: RRR, no mumurs ABD: soft, NT, ND +BS, no rebound, no guarding EXT: WWP, no peripheral edema, no clubbing Neuro:alert and oriented x3, grossly nonfocal Psych: normal mood and affect Peripheral Line Left Antecubital 20 Gauge (Active) Number of days: 2 STUDIES: Encounter Orders Labs and other studies reviewed with pertinent findings noted below: No results found for this or any previous visit (from the past 24 hour(s)).} Assessment and Plan IMPRESSION : Principal Problem: Gall stone pancreatitis Active Problems: HTN, goal below 140/90 Stage 3a chronic kidney disease (CKD) (HCC) Dyslipidemia Abdominal pain, RUQ (right upper quadrant) Acute calculous cholecystitis Elevated liver transaminase level Resolved Problems: * No resolved hospital problems. * DIFFERENTIAL AND PLAN: 68yF w/ suspected gallstone pancreatitis, with reported negative MRCP here with acute calculous cholecystitis - pain free at this time. - GI consult - Gen surg consult - ok to proceed to OR, no further optimization or testing indicated - NPO- IVF - stop abx 04/11 Post op Addendum: Patient seen and examined post procedure she is doing well. Weaned to room air, minimal pain, nausea has improved. Appreciate excellent surgical care. No complication with procedure- Discussed with Dr. Brian Moore Start clears- advance as tolerated tomorrow - follow up LFTS - GI on standby if there are issues. Other home medications as directed. cefepime in dextrose (Maxipime) ivpb 1 g hEParin inj 5,000 Units isolyte-S pH 7.4 infusion metroNIDAZOLE in NSS (Flagyl) ivpb 500 mg Acetaminophen (Tylenol) tab 650 mg Polyethylene Glycol 3350 (Miralax) oral powder 17 g AND [START ON 04/11/2024] senna-docusate (Senokot-S) 1 Tablet AND [START ON 04/12/2024] Bisacodyl (Dulcolax) tab 5 mg AND [START ON 04/12/2024] Bisacodyl (Dulcolax) supp 10 mg HYDROmorphone (Dilaudid) inj 0.5 mg levothyroxine (Levoxyl) tab 75 mcg melatonin tab 3 mg nortriptyline (Pamelor) cap 50 mg ondansetron (Zofran) inj 4 mg oxyCODONE (Oxy IR) tab 5 mg sodium chloride 0.9 % flush/inj 3 mL Orders Placed This Encounter Procedures Clear Liquid Diet PHARMACOLOGIC VTE PROPHYLAXIS: hEParin CODE STATUS: Full Code EXPECTED DISCHARGE DATE: 04/11/2024 I spent a total of 51 minutes coordinating, documenting, and providing care for this patient excluding time spent in the performance of separately billed services. documented in this encounter H&P Notes * Alonso Galindo MD - 04/09/2024 10:57 AM EDT Images from the original note were not included. [facility] 5A-5130/W PRESENTING PROBLEM: right upper quad pain for 2 days. HPI: 68-year-old woman, with history of hypertension, stage IIIA kidney disease, dyslipidemia presents with abdominal discomfort especially in the right upper quadrant over the last 2 days. Symptoms started suddenly on Wednesday, sometime in the afternoon. Pain was intermittent, but was worsening inintensity through the course of Wednesday into temporary office assistant Wednesday. Patient was able to tolerate oral intake, as well as having regular bowel movements per her. With the pain kept intensifying. She does not report any fevers or chills. No lightheadedness or dizziness. No chest pain or shortness of breath. No nausea or vomiting either. Due to worsening pain on Wednesday morning, she decided to go to the ED. She presented to outside hospital ([facility]) with symptoms. She was diagnosed to have acute colic status and recommended admission for surgical evaluation. Since this was not available at [facility], she was transferred to our facility for further care. When I was in to see the patient earlier this morning, she reports having some improvement to her pain since initial presentation on Wednesday (yesterday). She however continues to have right upper quadrant pain. She does not report any nausea vomiting currently. She also does not report any diarrhea or loose stools. Blood work completed this morning, shows kidney functions at baseline, but minimally elevated lipase at 62 (was found to be 900 in outside hospital). Her CRP is mildly elevated at 22. Her liver function tests are significantly elevated with AST ALT and alk-phos all of them being elevated. Her totalbili however is normal. Patient has been admitted to med tele unit for acute cholecystitis, gallstone pancreatitis. I have suspicion for choledocholithiasis as well. Subjective Patient's past history, medications, and allergies were reviewed. Objective Physical Exam Most Recent Vital Signs: BP: 146 mmHg/76 mmHg (04/09/24953) Pulse: 86 (04/09/24 09) Resp: 16 (04/09/24953) Temp: 35.78 C (04/09/24953) Temp Summary: Temp Min: 35.8 C (96.4 F) Max: 35.8 C (96.4 F) SpO2: 98 % (04/09/24953) O2 flow rate: Supplemental O2 Delivery: Room Air, None (04/09/24 0954) Constitutional: no acute distress HEENT: normal: normocephalic, atraumatic; no masses, tenderness, or adenopathy CV: S1-S2 heard, soft 2/6 systolic murmur appreciated. No other adventitious sounds. Chest: normal respiratory effort, breath sounds normal Abdomen: soft, normal bowel sounds, no mass, no organomegaly, right upper quadrant tenderness noted. Extremities: no clubbing, cyanosis, or edema, otherwise grossly normal, warm, and dry Skin: warm, dry, intact: Neuro: alert, oriented to person, place, and time, normal mental status exam, no obvious focal neuro deficits noted. STUDIES: Encounter Orders Labs and other studies reviewed with pertinent findings noted below: Recent Results (from the past 24 hour(s)) COMPREHENSIVE METABOLIC PANEL Collection Time: 04/09/24 11:07 AM Result Value Ref Range BUN 21 (H) 6 - 20 mg/dL CREATININE 1.1 (H) 0.5 - 1.0 mg/dL EGFR 52 (L) >=60 mL/min SODIUM 139 135 - 146 mmol/L POTASSIUM 4.5 3.5 - 5.1 mmol/L CHLORIDE 106 98 - 107 mmol/L CO2 21 (L) 22 - 32 mmol/L ANION GAP 12 7 - 15 mmol/L GLUCOSE 87 70 - 120 mg/dL Albumin 3.6 (L) 3.8 - 5.0 g/dL AST 230 (H) 10 - 35 U/L Alkaline Phosphatase 190 (H) 35 - 130 U/L Bilirubin, Total 0.7 <=1.2 mg/dL CALCIUM 8.6 8.4 - 10.2 mg/dL Protein 6.4 6.0 - 8.3 g/dL ALT 204 (H) 10 - 35 U/L PT INR Collection Time: 04/09/24 11:07 AM Result Value Ref Range Prothrombin Time 13.9 11.6 - 15.2 seconds INR 1.1 0.8 - 1.2 CBC Collection Time: 04/09/24 11:07 AM Result Value Ref Range WBC 7.54 4.00 - 10.80 K/uL RBC 3.97 3.85 - 5.15 M/uL HGB 12.1 12.0 - 15.3 g/dL HCT 35.7 (L) 36.0 - 45.2 % MCV 89.9 81.5 - 97.5 fL MCH 30.5 27.0 - 34.0 pg MCHC 33.9 32.0 - 36.0 g/dL RDW 13.2 11.5 - 15.5 % PLT 249 140 - 400 K/uL MPV 9.7 6.6 - 11.1 fL nRBCs 0 <=0 /100 WBCs MAGNESIUM Collection Time: 04/09/24 11:07 AM Result Value Ref Range Magnesium 1.9 1.5 - 2.6 mg/dL PHOSPHORUS Collection Time: 04/09/24 11:07 AM Result Value Ref Range Phosphorus 3.3 2.5 - 4.8 mg/dL LIPASE Collection Time: 04/09/24 11:07 AM Result Value Ref Range Lipase 62 (H) 13 - 60 U/L PROCALCITONIN Collection Time: 04/09/24 11:07 AM Result Value Ref Range Procalcitonin 0.09 <0.10 ng/mL CRP (INFLAMMATORY MARKER) Collection Time: 04/09/24 11:07 AM Result Value Ref Range CRP (Inflammatory Marker) 22 (H) <=5 mg/L ] Assessment and Plan IMPRESSION: Principal Problem: Acute calculous cholecystitis Active Problems: HTN, goal below 140/90 Stage 3a chronic kidney disease (CKD) (HCC) Dyslipidemia Abdominal pain, RUQ (right upper quadrant) Resolved Problems: * No resolved hospital problems. * DIFFERENTIAL AND PLAN: - patient has been admitted to Med/Surg unit, telemetry also ordered. IV hydration with Isolyte at 100 mL/hour for 20 hours ordered. Also ordered cefepime and Flagyl for the patient, due to concern for acute cholangitis/choledocholithiasis (it would also cover for acute cholecystitis). -patient is NPO except meds for now. We will continue the status. -MRCP ordered. To evaluate for choledocholithiasis and cholangitis. -both General Surgery and Gastroenterology have been consulted. If there is evidence of choledocholithiasis, patient will likely need an ERCP 1st. If not, and the concern is largely acute cholecystitis, then General Surgery could consider doing cholecystectomy. I will defer to the specialists for the procedures they need to do. -continue the home medications as ordered. She is on lisinopril for hypertension, this has been held for the next couple of days. -heparin subQ for DVT prophylaxis. -full code for now, she designates her [place] as her healthcare proxy. -overall prognosis remains guarded. I anticipate the patient to need to be in the hospital for at least the next 48 hours. PHARMACOLOGIC VTE PROPHYLAXIS:hEParin CODE STATUS: Full Code EXPECTED DISCHARGE DATE: No information available I spent a total of 75 minutes coordinating, documenting, and providing care for this patient excluding time spent in the performance of separately billed services. documented in this encounter Consult Notes * Lena Salas MD - 04/10/2024 9:41 AM EDTAssociated Order(s): GENERAL SURGERY CONSULT IP Images from the original note were not included. CONSULTATION - General Surgery [facility] [id number] Date: 04/10/2024 Time: 9:41 AM REASON FOR CONSULT: "gall stone pancreatitis." CONSULTING SERVICE: Hospitalists HISTORY OF PRESENT ILLNESS: Pt is a 68 yo F with PMH significant for but not limited to HTN, stage IIIA kidney disease, and DLDwho presented to OSH 04/09 with complaint of progressive RUQ pain x 2 days prompting hospital evaluation. Work up was concerning for acute cholecystitis and patient was transferred d/t no available surgeon at OSH. Outside labs included lipase 900. She was admitted by medicine and work up here significant for MRCP demonstrating thickened gallbladder wall and cholelithiasis. No choledocholithiasis. Transaminitis noted, with absence of hyperbilirubinemia. She denied associated fevers, chills, nausea, vomiting, diarrhea, or constipation. Subjective Patient's past history, medications, and allergies were reviewed. Objective Physical Exam Most Recent Vital Signs: BP: 126 mmHg/74 mmHg (04/10/24729) Pulse: 83 (04/10/24729) Resp: 19 (04/10/24729) Temp: 35.67 C (04/10/24729) Temp Summary: Temp Min: 35.7 C (96.2 F) Max: 36.6 C (97.9 F) SpO2: 90 % (04/10/24729) O2 flow rate: Supplemental O2 Delivery: Room Air, None (04/10/24729) CONSTITUTIONAL: no acute distress CV: distally perfused, normal heart rate RESP/CHEST: normal respiratory effort ABDOMEN: soft, mild tenderness to deep palpation of RUQ, Sutton sign absent, non-distended EXTREMITIES: no edema SKIN: warm, dry NEURO: awake, alert, oriented LABS: Lab results within last 7 days (see chart for full results) Units 04/09/24 1107 WBC K/uL 7.54 HGB g/dL 12.1 PLT K/uL 249 Lab results within last 7 days (see chart for full results) Units 04/09/24 1107 SODIUM mmol/L 139 POTASSIUM mmol/L 4.5 CHLORIDE mmol/L 106 CO2 mmol/L 21* BUN mg/dL 21* CREATININE mg/dL 1.1* GLUCOSE mg/dL 87 CALCIUM mg/dL 8.6 Magnesium mg/dL 1.9 Phosphorus mg/dL 3.3 Lab results within last 7 days (see chart for full results) Units 04/09/24 1107 Protein g/dL 6.4 Bilirubin, Total mg/dL 0.7 Alkaline Phosphatase U/L 190* AST U/L 230* ALT U/L 204* No results in the last 7 days - inpatent use only Lab results within last 7 days (see chart for full results) Units 04/09/24 1107 INR 1.1 IMAGING: MRCP demonstrating cholelithiasis, gallbladder wall thickening. Assessment and Plan IMPRESSION: Principal Problem: Acute calculous cholecystitis Active Problems: HTN, goal below 140/90 Stage 3a chronic kidney disease (CKD) (HCC) Dyslipidemia Abdominal pain, RUQ (right upper quadrant) Elevated liver transaminase level Resolved Problems: * No resolved hospital problems. * Gabby Velásquez is a 68 year old female with concern for acute cholecystitis possible choledocholithiasis with passed stone d/t previous lipase 900 improved to 60's and transaminitis noted however no hyperbilirubinemia RECOMMENDATIONS: Continue abx Remain NPO + IVF Timing of operative cholecystectomy TBD The patient was discussed with Dr. Torres at the time of consultation Lena Lr MD General Surgery Resident 04/10/2024 9:51 AM ATTENDING NOTE: Patient with gallstones and resolving pancreatitis. Will plan for laparoscopic cholecystectomy. MRCP did not show any evidence of choledocholithiasis. Cierra Torres MD Associated attestation - Alan Torres MD - 04/10/2024 12:21 PM EDT I saw and evaluated the patient today. I have reviewed the resident/fellow physician note and agree. * Sandy Dahl PA-C - 04/10/2024 9:26 AM EDTAssociated Order(s): GASTROENTEROLOGY CONSULT IP CONSULT - Gastroenterology [facility] [facility] [place] [id number] Name: Gabby Velásquez Location: [facility] 5A-5130/W Date: 04/10/2024 Time: 9:26 AM REQUESTING SERVICE: medicine REASON FOR CONSULT: gall stone pancreatitis HPI: Gabby Velásquez is a 68 year old female with a PMH as listed below, admitted as a transfer from [facility] for acute cholecystitis with pancreatitis - by report, AST/ALT/ALP were elevated and lipase was 900. I am unable to locate any records from the OSH. She has been placed on antibiotics, and we have been consulted due to suspicion for gs pancreatitiswith choledocholithiasis. Labs on presentation here show a Lipase of 62, AST 230, ALT 204, ALP 190. Tbili was normal at 0.7. MRCP - IMPRESSION: 1. Cholelithiasis with thickening of the gallbladder wall, possibly acute cholecystitis. 2. No choledocholithiasis is seen. Patient reports that she no longer has any abdominal pain or nausea. Denies any NSAID or ETOH use. No recent medication changes. HISTORY: Past Medical History: Past Medical History: Diagnosis Date Anemia Arthritis Arthropathy CKD (chronic kidney disease), stage III (HCC) Closed 2-part nondisplaced fracture of surgical neck of humerus 2021 Subacute appearing nondisplaced fracture involving the left humeral head/neck Depression Dyslipidemia, goal LDL below 100 04/30/2022 VALENTIN (generalized anxiety disorder) 07/15/2018 HLD (hyperlipidemia) HTN (hypertension) HTN, goal below 130/80 03/16/2017 Hypothyroidism Lumbar radiculopathy Lumbar stenosis Meniere's disease Menier's Disease Migraine with aura Need for prophylactic hormone replacement therapy (postmenopausal) Neuralgia and neuritis Vertigo 04/19/2006 Dr. Greer Past Surgical History: Past Surgical History: Procedure Laterality Date ALLOGRAFT, MORSELIZED, FOR SPINE SURGERY N/A 12/24/2021 ALLOGRAFT FOR SPINE SURGERY MORSELIZED performed by Jules Sanchez MD at OR [facility] AUDITORY EVOKED POTENTIAL, COMPREHENSIVE (PROVIDER) 03/30/2006 ENG - Dr. Greer AUTOGRAFT, SPINE SURG, MORSELIZED Left 12/24/2021 OBTAIN AUTOGRAFT FOR SPINE SURGERY MORSELIZED SEPARATE INCISION performed by Jules Sanchez MD at OR [facility] BONE MARROW ASPIRATION BONE GRAFTING SPINE SURGERY ONLY Left 12/24/2021 BONE MARROW ASPIRATION FOR SPINE BONE GRAFTING performed by Jules Sanchez MD at OR [facility] CALORIC VESTIBULAR TEST 03/30/2006 Dr. Greer CARPAL TUNNEL SURGERY right COLONOGRAPHY,CT,SCREENING 07/19/2004 normal COLONOSCOPY DESTROY LUMBAR SACRAL NERVE IMAGING ADD'L 02/16/2019 DESTROY LUMBAR SACRAL NERVE IMAGING ADD'L performed by Brett Hunter, DO at OR [facility] DESTROY LUMBAR SACRAL NERVE IMAGING SINGLE 02/16/2019 DESTROY LUMBAR SACRAL NERVE IMAGING SINGLE performed by Brett Hunter DO at OR [facility] INJECT DX/THER SUBSTANCE INTERLAMINAR LUMBAR/SACRAL W IMAGE GUIDE 10/27/2018 INJECTION SPINE LUMBAR OR SACRAL performed by Brett Hunter DO at OR [facility] INJECT DX/THER SUBSTANCE INTERLAMINAR LUMBAR/SACRAL W IMAGE GUIDE 02/03/2021 INJECTION SPINE LUMBAR OR SACRAL performed by Brett Hunter DO at OR [facility] INJECT DX/THER SUBSTANCE INTERLAMINAR LUMBAR/SACRAL W IMAGE GUIDE 03/20/2021 INJECTION SPINE LUMBAR OR SACRAL performed by Brett Hunter DO at OR [facility] INSERT BIOMECH DEVICE INTERVERTEBRAL DISC SPACE W/ARTHRODESIS N/A 12/24/2021 INSERTION INTERBODY BIOMECHANICAL DEVICE ANTERIOR W/INTERBODY ARTHRODESIS performed by Jules Sanchez MD at OR [facility] L-/S-SPINE PARAVERTEBRAL FACET INJ,1 LEVEL 11/21/2018 L-/S-SPINE PARAVERTEBRAL FACET INJ, 1 LEVEL performed by Brett Javeds, DO at OR [facility] L-/S-SPINE PARAVERTEBRAL FACET INJ,1 LEVEL 02/02/2019 L-/S-SPINE PARAVERTEBRAL FACET INJ, 1 LEVEL performed by Brett Theresa Cousins, DO at OR [facility] L-/S-SPINE PARAVERTEBRL FACET INJ,2 LEVELS 11/21/2018 L-/S-SPINE PARAVERTEBRAL FACET INJ, 2 LEVELS performed by [facility] Cousins, DO at OR [facility] L-/S-SPINE PARAVERTEBRL FACET INJ,2 LEVELS 02/02/2019 L-/S-SPINE PARAVERTEBRAL FACET INJ, 2 LEVELS performed by [facility] Zulaysins, DO at OR [facility] LAP;W/HYSTERECTOMY 07/19/1972 Hysterectomy Complete [facility] LUMBAR HEMILAMINECTOMY N/A 05/30/2019 LAMINOTOMY DECOMPRESSION NERVE ROOT LUMBAR performed by Shubham Selby MD at OR [facility] MAMMOGRAM - BILATERAL 08/20/2004 birad code 2/yearly MAMMOGRAM DIAGNOSTIC BILATERAL 03/13/2009 birad code 2 MAMMOGRAM DIAGNOSTIC BILATERAL 03/11/2010 birad code 2,yearly MAMMOGRAM OUTSIDE PROCEDURE 01/04/2008 birad code 2 MAMMOGRAM SCREENING BILATERAL 03/18/2011 birad code 1 MAMMOGRAM SCREENING-BILATERAL 02/14/2003 birad code 2 MAMMOGRAM SCREENING-BILATERAL 11/17/2006 birad code 2 MISCELLANEOUS ORDER ([facility] ONLY) 02/16/2011 Dr Dela Cruz; mannie spine fusion NM DEXA SCAN, OUTSIDE PROCEDURE 08/10/2012 [facility] OSCILLATING TRACKING TEST (PROVIDER) 03/30/2006 Dr. Greer POSITIONAL NYSTAGMUS TEST (PROVIDER) 03/30/2006 Dr. Greer REMOVE ADDED SPINE LAMINA, 1 SEG N/A 12/24/2021 LAMINECTOMY FACETECTOMY AND FORAMINOTOMY ADDITIONAL LEVELS performed by Jules Sanchez MD at OR [facility] REMOVE CATARACT, INSERT LENS PROSTH Left 06/26/2021 Left EXTRACAPSULAR CATARACT REMOVAL WITH INTRAOCULAR LENS performed by Madhu Romero MD at OR [facility] REMOVE CATARACT, INSERT LENS PROSTH Right 07/29/2021 Right EXTRACAPSULAR CATARACT REMOVAL WITH INTRAOCULAR LENS performed by Madhu Romero MD at OR [facility] REMOVE LUMBAR SPINE LAMINA, 1 SEG N/A 12/24/2021 LAMINECTOMY FACETECTOMY AND FORAMINOTOMY LUMBAR performed by Jules Sanchez MD at OR [facility] SPINAL FUSION, LUMBAR, COMBINED N/A 12/24/2021 ARTHRODESIS SPINE POSTERIOR OR POSTERIOR LATERAL WITH LAMINECTOMY LUMBAR, COMBINED performed by Jules Sanchez MD at OR [facility] SPINE FIXATION, POSTERIOR, (RICCI) N/A 12/24/2021 POSTERIOR SPINE INSTRUMENTATION NON SEGMENTAL performed by Julse Sanchez MD at OR [facility] SPONTANEOUS NYSTAGMUS TEST (PROVIDER) 03/30/2006 ABR - Dr. Greer TOTAL ABD HYSTERECTOMY W/WO REMOVAL OF TUBE(S) 07/19/1978 VAGINAL DELIVERY ONLY Vaginal Delivery Social History: Social History Tobacco Use Smoking status: Never Smokeless tobacco: Never Vaping Use Vaping status: Never Used Substance Use Topics Alcohol use: No Drug use: No Family History: Family History Problem Relation Name Age of Onset Hypertension Mother Heart Disorder Mother Thyroid Disorder Mother Stroke Father Hypertension Father Hypertension Sister Pancreatic cancer Sister No Known Problems Daughter Blood Disorder Brother hypercholesteremia Cancer Grandfather (Maternal) Heart Disorder Uncle (Unspecified) Breast Cancer No significant family history Allergies: Cephalexin, Diflucan [fluconazole], Erythromycin, Nitrofuran derivatives, Penicillins, and Sulfa antibiotics ROS: Constitutional: (-) fever, chills, sweats Eyes: (-) negative, no scleral icterus, pain, blurred vision, or redness ENT: (-) negative: no acute hearing loss, sinus, ear or throat problems Cardiovascular: (-) negative: no chest pain, dyspnea, palpitations, or syncope Pulmonary: (-) negative: no cough, wheezing, or shortness of breath Abdominal/GI: as per HPI, otherwise negative Musculoskeletal: (-) negative: no joint swelling or tenderness Endocrine: (-) heat intolerance and (-) cold intolerance Hematology/oncology: (-) negative: no night sweats, masses, or swollen nodes Skin: (-) negative: no rash or jaundice Neurology: (-) negative: no focal neurologic defect or confusion Female : (-) dysuria PHYSICAL EXAMINATION: Most Recent Vital Signs: BP: 126 mmHg/74 mmHg (04/10/24 0730) Pulse: 83 (04/10/24 0730) Resp: 19 (04/10/24729) Temp: 35.67 C (04/10/24729) Temp Summary: Temp Min: 35.7 C (96.2 F) Max: 36.6 C (97.9 F) SpO2: 90 % (04/10/24729) O2 flow rate: Supplemental O2 Delivery: Room Air, None (04/10/24729) Vital Signs Last 24 Hours: Systolic BP: Most Recent Systolic BP Av.8 mmHg Min: 120 mmHg Max: 146 mmHg Temperature: Most Recent Temperature Av.1 C Min: 35.67 C Max: 36.61 C Pulse: Pulse Av Min: 79 Max: 89 Respirations: Resp Av Min: 16 Max: 19 SpO2: SpO2 Av.9 % Min: 90 % Max: 99 % Constitutional: no acute distress HEENT: normal: normocephalic, atraumatic Eyes: no scleral icterus, redness, or injection Neck: supple, normal range of motion CV: normal rate, normal rhythm Chest: normal respiratory effort, lungs clear to auscultation with equal chest exertion Abdomen: normal: soft, bowel sounds normal, no masses, tenderness or appreciable ascites Musculoskeletal: (-) no joint effusions or tenderness Extremities: no edema Skin: warm and dry, no rashes Neuro: alert Psych: normal mood and affect, nonsuicidal LABS: Labs reviewed. Recent Results (from the past 24 hour(s)) COMPREHENSIVE METABOLIC PANEL Collection Time: 04/09/24 11:07 AM Result Value Ref Range BUN 21 (H) 6 - 20 mg/dL CREATININE 1.1 (H) 0.5 - 1.0 mg/dL EGFR 52 (L) >=60 mL/min SODIUM 139 135 - 146 mmol/L POTASSIUM 4.5 3.5 - 5.1 mmol/L CHLORIDE 106 98 - 107 mmol/L CO2 21 (L) 22 - 32 mmol/L ANION GAP 12 7 - 15 mmol/L GLUCOSE 87 70 - 120 mg/dL Albumin 3.6 (L) 3.8 - 5.0 g/dL AST 230 (H) 10 - 35 U/L Alkaline Phosphatase 190 (H) 35 - 130 U/L Bilirubin, Total 0.7 <=1.2 mg/dL CALCIUM 8.6 8.4 - 10.2 mg/dL Protein 6.4 6.0 - 8.3 g/dL ALT 204 (H) 10 - 35 U/L PT INR Collection Time: 04/09/24 11:07 AM Result Value Ref Range Prothrombin Time 13.9 11.6 - 15.2 seconds INR 1.1 0.8 - 1.2 CBC Collection Time: 04/09/24 11:07 AM Result Value Ref Range WBC 7.54 4.00 - 10.80 K/uL RBC 3.97 3.85 - 5.15 M/uL HGB 12.1 12.0 - 15.3 g/dL HCT 35.7 (L) 36.0 - 45.2 % MCV 89.9 81.5 - 97.5 fL MCH 30.5 27.0 - 34.0 pg MCHC 33.9 32.0 - 36.0 g/dL RDW 13.2 11.5 - 15.5 % PLT 249 140 - 400 K/uL MPV 9.7 6.6 - 11.1 fL nRBCs 0 <=0 /100 WBCs MAGNESIUM Collection Time: 04/09/24 11:07 AM Result Value Ref Range Magnesium 1.9 1.5 - 2.6 mg/dL PHOSPHORUS Collection Time: 04/09/24 11:07 AM Result Value Ref Range Phosphorus 3.3 2.5 - 4.8 mg/dL LIPASE Collection Time: 04/09/24 11:07 AM Result Value Ref Range Lipase 62 (H) 13 - 60 U/L PROCALCITONIN Collection Time: 04/09/24 11:07 AM Result Value Ref Range Procalcitonin 0.09 <0.10 ng/mL CRP (INFLAMMATORY MARKER) Collection Time: 04/09/24 11:07 AM Result Value Ref Range CRP (Inflammatory Marker) 22 (H) <=5 mg/L IMPRESSION: Gabby Velásquez is a(n) 68 year old female admitted with acute cholecystitis with pancreatitis and suspected choledocholithiasis. RECOMMENDATIONS/PLAN: Will plan for EUS with +/- ERCP today. Please keep NPO except meds. Hold anticoagulation. Continue antibiotics. Follow LFTs. Cholecystectomy as per surgical service. I will discuss the case with my attending, Dr Hernandez. Associated attestation - Daryl Hernandez DO - 04/10/2024 3:26 PM EDT I have reviewed the advanced practitioner's documentation on the date of service referenced in note, and I agree with, and take responsibility for the plan of care. The patient had presented to an outside institution with suspicion of cholelithiasis and cholecystitis. The patient has a normal bilirubin and therefore underwent cholecystectomy today with General Surgery. They are going to call us should any additional GI interventions be needed. We had offered en doscopic ultrasound and upper endoscopy and are happy to proceed with this in the future should it be needed. Please call with any questions or concerns GI to sign I spent a total of 20 minutes coordinating, documenting, and providing care for this patient excluding time spent in the performance of separately billed services or time spent by another provider/QHP. documented in this encounter Nursing Notes * Bella Martínez RN - 04/10/2024 4:12 PM EDT Post Anesthesia Care Unit Discharge Note [address] [id number] Dept. Gabby J Christen Vital Signs Stable Discharged from PACU as per discharge criteria (see discharge criteria sheet). Time: 1611 Reported to: RN Taken to Inpatient Room 5131, accompanied by Rosenda GOMEZ. Transported via: Bed Belongings with Patient: Not Applicable Prescriptions on Chart: N/A Patient meets criteria to be transferred or discharged * Eun Evans RN - 04/09/2024 10:29 AM EDT Dual Licensed Skin Assessment completed by Gildardo Evans RN and Ruddy Cee RN. The patient is/has a N/A Skin Breakdown (includes non blanchable erythema): No * Eun Evans RN - 04/09/2024 10:28 AM EDT 0954- Pt arrived to room via transport service from [facility]. Pt states she came in for abdominal pain and tenderness. Pt oriented to room, call iHigh system and assessed. BP 146/76 | Pulse 86 |Temp 35.8 C (96.4 F) (Temporal Artery) | Resp 16 | Ht 1.6 m (5' 3") | Wt 66.7 kg (147 lb) | SpO2 98% | BMI 26.04 kg/m | BSA 1.72 m . Provider and discharge rn made aware of pt arrival. Pt deniesfurther needs at this time, call qiu in reach. documented in this encounter Miscellaneous Notes * Communication - Gisel Murhpy RN - 04/11/2024 2:38 PM EDT Appointments: You have a hospital follow up appointment with Vivian Pena April 19, 2024 at 12:00 pm. [facility] Physician [employer], Family Medicine [address] [place] [address] [id number] You have a follow up appointment with Dr. Torres May 01, 2024 at 3:30 pm. (General Surgery) [phone] * Pt Handout (on AVS) - Yolanda Palacios MD, PhD - 04/11/2024 2:10 PM EDT Images from the original note were not included. [id number] Low-Fat Diet A low-fat diet can help you lose weight. It also can help lower cholesterol and prevent symptoms ofgallbladder disease. In addition, choosing healthier unsaturated fats over less saturated healthy fats can help improve heart health. The average [place] diet contains up to 50% fat. This means thathalf of all calories come from fat (about 80 grams to 100 grams of fat per day). Choosing normal portions of foods from the list below can help lower your fat intake. Experts recommend that only 20% to 35% of your daily calories come from fat. The remaining 65% to 80% of calories will come from protein and carbohydrates. Breads OK: Whole-wheat or rye bread, paulina or soda crackers, vikki toast, plain rolls, whole-wheat bagels, Icelandic muffins Don't have: Rolls and breads containing whole milk; waffles, pancakes, biscuits, corn bread; cheesecrackers, other flavored crackers, pastries, doughnuts Cereals OK: Oatmeal, whole-wheat, bran, multigrain, rice Don't have : Granola or other cereals that have oil, coconut, or more than 2 grams of fat per serving Cheese and eggs OK: Cheeses labeled low-fat; 3 whole eggs per week; egg whites and egg substitutes as desired Don't have: All other cheeses Desserts OK: Gelatin, slushy, casandra food cake, meringues, nonfat yogurt, and puddings, or sherbet made with nonfat milk Don't have: Any other store-bought desserts, or desserts that have fat, whole milk, cream, chocolate, and coconut. Try to limit sweets and desserts. They may also contain high amounts of added sugars. Drinks OK: Nonfat milk, coffee, tea, water Don't have : Whole and reduced-fat milk, evaporated and condensed milk, hot chocolate mixes, milk shakes, malts, eggnog Fats OK: You may have up to 3 teaspoons of fat daily. This can be butter, margarine, mayonnaise, or healthy oils (canola or olive) Don't have: Cream, nondairy creams, cream cheese, gravies, and cream sauces Fruits OK: All fruits made without fat Don't have: Coconut, olives Meats, poultry, fish OK: Limit meat to 6 ounces daily (broiled, roasted, baked, grilled, or boiled). Buy lean cuts, and trim off the fat. Try beef, fish, patel, pork, and canned fish packed in water; also, chicken and turkey with the skin removed. Don't have: Fried meats, fish, or poultry; fried eggs, and fish canned in oils; fatty meats, such as le, sausage, corned beef, hot dogs, and lunch meats; meats with gravies and sauces Potatoes, beans, pasta OK: Dried beans, split peas, lentils, potatoes, rice, pasta made without added fat Don't have: American fries, potato chips, potatoes prepared with butter, refried beans Soups OK: Clear broth soups without fat and with allowed vegetables Don't have: Cream-based soups Vegetables OK: Fresh, frozen, canned or dried vegetables, all made without added fat Don't have: Fried vegetables and those prepared with butter, cream, sauces Other foods OK: Salsa, spices and herbs, mustard, ketchup, lemon, and vinegar. Though some foods like sugar, jelly, hard candy, marshmallows, honey, syrup, and salt contain no fat, it's still a good idea to watch portion sizes. The Dietary Guidelines for Americans recommend that less than 10% of daily caloriescome from added sugars. Don't have: Chocolate, nuts, coconut, and cream candies; sunflower, sesame, and other seeds; fried foods; cream sauces and gravies; pizza Last Reviewed Date: 02/16/202219990034-8633 [employer]. All rights reserved. This information is not intended as a substitute for professional medical care. Always follow your healthcare professional's instructions. * Pt Handout (on AVS) - Yolanda Palacios MD, PhD - 04/11/2024 2:10 PM EDT Images from the original note were not included. [id number] After Gallbladder Surgery You can often go home the same day as your surgery after laparoscopic surgery. In some cases, you may need to stay overnight. After open surgery, you'll usually need to stay in the hospital for 2 to 5 days. Once you?re at home, follow all your healthcare provider?s instructions. In the hospital Bandages will cover your incisions. And you may have special boots on your legs to help with circulation. Or you may get shots (injections) to prevent blood clots. To aid recovery, you?ll be asked toget up and move as soon as possible. You may also be asked to use a device that helps promote deep breathing to keep your lungs clear. At home You can get back to your normal routine as soon as you feel able. To speed healing: Take any prescribed pain medicines as directed. Follow your healthcare provider?s instructions about bathing and caring for your incisions. Walk and move around as often as possible. But follow your provider's instructions on when to start aerobic exercise and how much weight you can lift. Ask your provider about driving and going back to work. This is often about 5 to 10 days after surgery. Eating normally again Removing the gallbladder doesn?t mean you have to be on a special diet. But you may want to start with light meals. It can also take a few weeks for your digestion to adjust. You may have indigestion, loose stools, or diarrhea. This is common. It should go away in time. Following up Keep follow-up appointments during your recovery. These let your healthcare provider check your progress and answer any questions. Tell your provider if you have any new symptoms. Or if you have diarrhea that doesn?t go away. When to call your healthcare provider Call your provider if you have any of the following: Fever of 100.4 F (38 C) or higher, or as advised by your provider Chills More pain, redness, or fluid leaking at an incision site Upset stomach (nausea) or vomiting that lasts more than 12 hours Yellow skin or eyes Diarrhea for a long time Belly pain Leg swelling Trouble peeing Mild or temporary bleeding Not able to have a bowel movement for 3 days Call 911 Call 911 right away if any of these occur: Sudden shortness of breath or trouble breathing A lot of bleeding or bleeding that lasts a long time Fainting Last Reviewed Date: 10/18/202319991790-5076 [employer]. All rights reserved. This information is not intended as a substitute for professional medical care. Always follow your healthcare professional's instructions. * Pt Handout (on AVS) - Yolanda Palacios MD, PhD - 04/11/2024 2:10 PM EDT 26[address] Discharge Instructions for Laparoscopic Gallbladder Removal Surgery (Cholecystectomy) You had surgery to remove your gallbladder. This is called a cholecystectomy. You had the surgery done with laparoscopy. This means it was done with several small incisions. People who have the surgery done this way often recover more quickly. They may have less pain than with open gallbladder surgery. You can live a full and healthy life without your gallbladder. This includes eating the foods and doing the things you enjoyed before. Below are guidelines for home care after surgery. Home care To care for yourself at home: Get plenty of rest. Don?t worry if you feel tired for the first couple of weeks after your surgery. Fatigue is common. Nap when you feel tired. Wash the skin around your cut (incision) daily with mild soap and water. It's OK to shower the day after your surgery unless your healthcare provider says not to. Eat your normal diet. But don't eat rich, greasy, or spicy food for a few days. Many surgeons advise a low-fat diet for the first month after surgery. Don?t eat fried food during this time. You can walk around the house, do office work, climb stairs, or ride in a car if you feel able to do so. Ask someone to drive you to your appointments for the next [address]. [address] until you have stopped taking pain medicine. Make sure you can step on the brake pedal with no delay. Eat more fiber and use a stool softener if you are constipated. Pain medicine can cause constipation. Talk with your provider if you need more help. Don?t sit in a bathtub, swimming pool, or hot tub until your healthcare provider says it?s safe.Wait until the incision is closed. Wait until any surgical tubes (drains) are removed. Follow-up care Make a follow-up appointment with your surgeon as advised. Call your healthcare provider if these symptoms don?t go away within 1 week after your surgery: Extreme tiredness (fatigue) Pain around the incision Diarrhea or constipation Loss of appetite When to call your healthcare provider Call your healthcare provider right away if you have any of these: Yellowing of your eyes or skin (jaundice) Chills Fever of 100.4F (38.0C) or higher, or as directed by your provider Redness or swelling of the incision Fluid leaking or a bad smell from the incision Incision pain that gets worse Dark or rust-colored urine Stool that is light in color instead of brown Increasing belly pain Rectal bleeding Trouble breathing or shortness of breath Leg swelling Last Reviewed Date: 06/18/202119994036-1444 [employer]. All rights reserved. This information is not intended as a substitute for professional medical care. Always follow your healthcare professional's instructions. * Care Plan - Rita Murphy RN - 04/10/2024 6:58 PM EDT Clinical Goal(s): Pt will remain free of falls this shift (04/10/24 0750) Possible barriers to meeting goal(s)/advancing plan of care: [facility] equipment Stability of the patient: Moderately stable - low risk of patient condition declining or worsening Summary regarding today's goal(s): Met: Recommendations: Continue plan of care * Care Plan - Tasia Vela RN - 04/10/2024 6:50 AM EDT Clinical Goal(s): Pt will report <5/10 pain this shift. (04/09/241999) Possible barriers to meeting goal(s)/advancing plan of care: Admitting dx Stability of the patient: Moderately stable - low risk of patient condition declining or worsening Summary regarding today's goal(s): Met: Pt reported <5/10 pain this shift. Recommendations: Continue plan of care. * Care Plan - Eun Evans RN - 04/09/2024 5:00 PM EDT Clinical Goal(s): Pt will remain free from falls this shift (04/09/24 0911) Possible barriers to meeting goal(s)/advancing plan of care: unfamiliar environment, ambulation w/ IV pole Stability of the patient: Moderately stable - low risk of patient condition declining or worsening Summary regarding today's goal(s): Met: Pt had no falls this shift Recommendations: continue plan of care and fall precautions * Pt Handout (on AVS) - Gabriela Barboza RN - 04/09/2024 3:42 PM EDT Images from the original note were not included. [id number] Cholecystitis (Presumed) Your belly (abdominal) pain may be due to an inflammation and possible infection in the gallbladder. This is called cholecystitis. The gallbladder is a small sac under the liver. It stores and releases bile. Bile is a fluid made in the liver that helps with digesting fat. Eating fatty food stimulates the gallbladder to contract and release the bile. Gallstones may form in this sac (called cholelithiasis). Most people don't have symptoms. But if the stone moves and blocks bile from leaving the gallbladder, it can cause pain and even an infection. The infection is called cholecystitis. Bile sludge without a stone can also cause cholecystitis. To help be sure of the diagnosis, you may need to have an ultrasound, CT scan, or other special test. Several things increase the risk of developing gallstones: Being a woman Being obese Being older Losing or gaining weight quickly Having a high-calorie diet Being Using hormone therapy Having diabetes The most common symptoms are: Belly pain, cramping, aching Upset stomach (nausea), vomiting Fever Many illnesses can cause these symptoms. Gallbladder pain is called biliary colic and often starts in the upper right side of your belly. The pain can also be in the top middle part of the belly. Sometimes it can spread to your right shoulder, back, and arm. It often starts suddenly, becomes more intense quickly, and then slowly decreases and goes away over a couple of hours. Older adults and people with diabetes may have trouble showing exactly where the pain is. The pain may occur after meals, especially fatty meals. Home care If you have short periods of gallbladder pain that go away, this is called biliary colic. You may be sent home to rest in bed and follow a clear liquid diet until the pain, upset stomach, and vomiting go away. Call your healthcare provider for a follow-up appointment. Biliary colic can keep coming back and can cause acute cholecystitis. Antibiotics and other medicine may be prescribed. Take these exactly as directed. You can take acetaminophen or ibuprofen for pain, unless you were given a different pain medicine to use. Talk with your provider before using these medicines if you: o Have chronic liver or kidney disease o Ever had a stomach ulcer or GI (gastrointestinal) bleeding o Are taking blood-thinner medicines Fat in your diet makes the gallbladder contract and may cause more pain. Don't have any fat in your diet over the next 2 days. Follow a low-fat diet after that. If you are overweight, a low-fat diet will help you lose weight. Call 911 Call 911 if you have ongoing symptoms that don't get better, or if you get a fever with your symptoms. You may have acute cholecystitis. This is not a condition that should be treated at home. You should go to the emergency room. Often surgery to remove the gallbladder (cholecystectomy) is needed. Follow-up care An infection in the gallbladder is a serious problem and must be watched carefully. Keep any appointments made to have further testing and to see a general surgeon. See your healthcare provider for another exam in the next 1 to 2 days, or as advised. Once cholecystitis has occurred, removing the gallbladder is often needed to prevent a recurrence. You can talk with your provider about this at your follow-up visit. If you were hospitalized for cholecystitis, your gallbladder may be taken out during that same hospital stay. Gallstones that aren't causing infection or symptoms often don't need surgery. When to get medical advice Call your healthcare provider if any of these occur: Repeated vomiting Belly swelling Pain lasting more than 6 hours Fever of 100.4F (38C) or higher, or as advised by your provider Shaking chills Weakness, dizziness, or fainting Dark yellow pee (urine) or poop (stool) that's light gillette or emmy-colored Yellow color of the skin or eyes (jaundice) Chest, arm, back, neck, or jaw pain Last Reviewed Date: 02/16/202219992221-9891 [employer]. All rights reserved. This information is not intended as a substitute for professional medical care. Always follow your healthcare professional's instructions. documented in this encounter Plan of Treatment Upcoming Encounters Date Type Department Care Team (Late st Contact Info) Description 04/19/2024 12:00 PM EDT Office Visit Family Practice [facility] [place] [address] [facility] [place] [address] Vivian Pena PA-C [address] [place] [address] 05/01/2024 3:30 PM EDT Office Visit General Surgery Fany Alcantara [address] [place] [phone] Alan Torres MD [address] [place] [address] 05/02/2024 2:15 PM EDT Office Visit Orthopaedics Spine Surgery, Fany Verduzco [address] [place] [address] Jules Sanchez MD [address] [place] [address] 08/15/2024 11:00 AM EST Office Visit Cardiology, [facility] [address] [place] [address] Conchis Urrutia PA-C [address] [place] [address] 09/27/2024 11:30 AM EDT Office Visit Otolaryngology [facility] [address] [place] [address] Dennise Guerra PA-C [address] [place] [phone] Pending Results Name Type Priority Associated Diagnoses Date /Time SURGICAL PATHOLOGY Pathology Routine Acute calculous cholecystitis 04/10/2024 2:22 PM EDT Scheduled Orders Name Type Priority Associated Diagnoses Orde r Schedule EKG EKG STAT QT prolongation One Time for 1 Occurrences starting 04/09/2024 until 04/09/2024 EGD, FLEXIBLE,W/ENDOSCOPIC US Procedures Routine Once for 1 Occurrences starting 04/10/2024 until 04/10/2024 ERCP Gastro Upper Routine One Time for 1 Occurrences starting 04/10/2024 until 04/10/2024 SURGICAL PATHOLOGY Pathology Routine Acute calculous cholecystitis Release Upon Ordering for 1 Occurrences starting 04/10/2024, 1 completed BASIC METABOLIC PANEL Lab Routine S/P laparoscopic cholecystectomy Elevated liver transaminase level Ordered: 04/11/2024 CBC WITH WBC DIFFERENTIAL Lab Routine S/P laparoscopic cholecystectomy Elevated liver transaminase level Ordered: 04/11/2024 HEPATIC FUNCTION PANEL Lab Routine S/P laparoscopic cholecystectomy Elevated liver transaminase level Ordered: 04/11/2024 Health Maintenance Due Date Last Done Comments [...] Additional history exists CKD PHOS USE SMARTSET 12986 04/09/202503/20, 03/23/2024, 02/26/2023, Additional history exists CKD HGB USE SMARTSET 01375 04/11/202504/11, 04/09/2024, 03/23/2024, Additional history exists Cologuard [...] this encounter Medical Devices Implanted Type Area Silver Buffer Device Identifier Shelf Expiration Date Model / Serial / Lot Screw Implanted:Qty : 4 on 12/24/2021 by Jules Sanchez MD at OR [facility] Screw N/A: Spine Lumbar [employer] [id number] / / Lens Intraoc 20.0 - [id number] - [id number] Implanted:Qty : 1 on 06/26/2021 by Madhu Romero MD at OR [facility] Left: Eye [employer] LOMB 03/18/2026 [id number] / [id number] / [id number] Lens Intraoc 19.5 - [id number] - [id number] Implanted:Qty : 1 on 07/29/2021 by Madhu Romero MD at OR [facility] Right: Eye [employer]OMB 02/15/2026 [id number] / [id number] / [id number] Graft Bone Dbm Matrix 2.5x5cm - [id number] - [id number] Implanted:Qty : 1 on 12/24/2021 by Jules Sanchez MD at OR [facility] N/A: Spine Lumbar [employer] [id number] 06/09/2024 [id number] / [id number] / LOT NA Vitoss Bimodal Foam Pack 2.5cc - [id number] - [id number] Implanted:Qty : 1 on 12/24/2021 by Jules Sanchez MD at OR [facility] N/A: Spine Lumbar JESUS : SPINE [id number] 10/13/2022 / [id number] / [id number] Vitoss Bimodal Foam Pack 2.5cc - [id number] - [id number] Implanted:Qty : 1 on 12/24/2021 by Jules Sanchez MD at OR [facility] N/A: Spine Lumbar JESUS : SPINE [id number] 10/13/2022 / [id number] / [id number] Head Poly Top Load Matrix - [id number] Implanted:Qty : 4 on 12/24/2021 by Jules Sanchez MD at OR [facility] N/A: Spine Lumbar SYNTHES : DEPUY [id number] / / Cap Locking W/O Saddle Matrix - [id number] Implanted:Qty : 4 on 12/24/2021 by Jules Sanchez MD at OR [facility] N/A: Spine Lumbar SYNTHES : DEPUY [id number] / / Graft Bone Infuse Kit Xsmall - [id number] - [id number] Implanted:Qty : 1 on 12/24/2021 by Jules Sanchez MD at OR [facility] N/A: Spine Lumbar [employer] : NEUROLOGIC PAIN [id number] 10/16/2022 [id number] / [id number] / [id number] Sandoval Implanted:Qty : 2 on 12/24/2021 by Jules Sanchez MD at OR [facility] N/A: Spine Lumbar [employer] [id number] / / Cage Implanted:Qty : 1 on 12/24/2021 by Jules Sanchez MD at OR [facility] N/A: Spine Lumbar [employer] [id number] / / documented as of this encounter Procedures Procedure Name Priority Date/Time Associated Diagnosis Comments HEPATIC FUNCTION PANEL Routine 6:40 AM EDT BASIC METABOLIC PANEL Routine 04/11/2024 6:40 AM EDT PT INR Routine 04/11/2024 6:40 AM EDT CBC Routine 04/11/2024 6:40 AM EDT MAGNESIUM Routine 04/11/2024 6:40 AM EDT LAPAROSCOPY; CHOLECYSTECTOMY 04/10/2024 12:10 PM EDT Acute calculous cholecystitis MRI ABDOMEN WO CONTRAST STAT 04/09/20 12:47 PM EDT Other specified diseases of gallbladder Calculus of gallbladder without cholecystitis without obstruction PROCALCITONIN STAT 04/09/2024 11:07 AM EDT CRP (INFLAMMATORY MARKER) STAT 04/09/2024 11:07 AM EDT COMPREHENSIVE METABOLIC PANEL STAT 04/09/2024 11:07 AM EDT PT INR STAT 04/09/2024 11:07 AM EDT PHOSPHORUS STAT 04/09/2024 11:07 AM EDT LIPASE STAT 04/09/2024 11:07 AM EDT CBC STAT 04/09/2024 11:07 AM EDT MAGNESIUM STAT 04/09/2024 11:07 AM EDT documented in this encounter Results * (ABNORMAL) CBC (04/11/2024 6:40 AM EDT) Pathologist [facility] WBC 9.53 4.00 - 10.80 K/uL 04/11/2024 7:31 AM EDT LABORATORY [facility] RBC 3.70 3.85 - 5.15 M/uL 04/11/2024 7:31 AM EDT LABORATORY [facility] HGB 11.0(L) 12.0 - 15.3 g/dL 04/11/2024 7:31 AM EDT LABORATORY [facility] HCT 32.6(L) 36.0 - 45.2 % 04/11/2024 7:31 AM EDT LABORATORY [facility] MCV 88.1 81.5 - 97.5 fL 04/11/2024 7:31 AM EDT LABORATORY [facility] MCH 29.7 27.0 - 34.0 pg 04/11/2024 7:31 AM EDT LABORATORY [facility] MCHC 33.7 32.0 - 36.0 g/dL 04/11/2024 7:31 AM EDT LABORATORY [facility] RDW 12.7 11.5 - 15.5 % 04/11/2024 7:31 AM EDT LABORATORY [facility] PLT 243 140 - 400 K/uL 04/11/2024 7:31 AM EDT LABORATORY [facility] MPV 10.1 6.6 - 11.1 fL 04/11/2024 7:31 AM EDT LAB[facility]ATORY [facility] nRBCs 0 <=0 /100 WBCs 04/11/2024 7:31 AM EDT LAB[facility]ORY [facility] Blood Venous blood specimen / Unknown Venipuncture / Unknown 04/11/2024 6:40 AM EDT 04/11/2024 7:16 AM EDT Yolanda Palacios MD, PhD LAB BLOOD ORD ERABLES LABORATORY [facility] [address] [place] [address] * (ABNORMAL) BASIC METABOLIC PANEL (04/11/2024 6:40 AM EDT) BUN 17 6 - 20 mg/dL 04/11/2024 8:27 AM EDT LABORATORY GL CREATININE 1.0 0.5 - 1.0 mg/dL 04/11/2024 8:27 AM EDT LABORATORY GL EGFR 63 >=60 mL/min 04/11/2024 8:27 AM EDT LABORATORY GL Comment:eGFR is calculated b ased on the CKD-EPI 2020 equation. SODIUM 136 135 - 146 mmol/L 04/11/2024 8:27 AM EDT LABORATORY [facility] POTASSIUM 4.9 3.5 - 5.1 mmol/L 04/11/2024 8:27 AM EDT LAB[facility]ATORY [facility] CHLORIDE 104 98 - 107 mmol/L 04/11/2024 8:27 AM EDT LAB[facility]ATORY [facility] CO2 21(L) 22 - 32 mmol/L 04/11/2024 8:27 AM EDT LABORATORY GL ANION GAP 11 7 - 15 mmol/L 04/11/2024 8:27 AM EDT LAB[facility]ATORY [facility] GLUCOSE 130(H) 70 - 120 mg/dL 04/11/2024 8:27 AM EDT LAB[facility]ATORY [facility] CALCIUM 8.3(L) 8.4 - 10.2 mg/dL 04/11/2024 8:27 AM EDT LABORATORY GL Blood Venous blood specimen / Unknown Venipuncture / Unknown 04/11/2024 6:40 AM EDT 04/11/2024 7:16 AM EDT Yolanda Palacios MD, PhD LAB BLOOD ORD ERABLES LABORATORY [address] [address] * PT INR (04/11/2024 6:40 AM EDT) Prothrombin Time 14.8 11.6 - 15.2 seconds 04/11/2024 8:21 AM EDT LABORATORY GL INR 1.2 0.8 - 1.2 04/11/2024 8:21 AM EDT LABORATORY [facility] Blood Venous blood specimen / Unknown Venipuncture / Unknown 04/11/2024 6:40 AM EDT 04/11/2024 7:16 AM EDT Narrative LABORATORY [facility] - 04/11/2024 8:21 AM EDT Warfarin Therapy INR: 2.0-3.0 conventional anticoagulation INR: 2.5-3.5 high intensity anticoagulation Yolanda Palacios MD, PhD LAB BLOOD ORD ERABLES Performing Organization Address City/[facility]/ZIP Co de Phone Number LABORATORY [address] [address] * (ABNORMAL) HEPATIC FUNCTION PANEL (04/11/2024 6:40 AM EDT) Albumin 3.5(L) 3.8 - 5.0 g/dL 04/11/2024 8:27 AM EDT LABORATORY [facility] AST 117(H) 10 - 35 U/L 04/11/2024 8:27 AM EDT LABORATORY [facility] Alkaline Phosphatase 175(H) 35 - 130 U/L 04/11/2024 8:27 AM EDT LAB[facility]ATORY [facility] ALT 126(H) 10 - 35 U/L 04/11/2024 8:27 AM EDT LAB[facility]ATORY [facility] Bilirubin, Total 0.5 <=1.2 mg/dL 04/11/2024 8:27 AM EDT LAB[facility]ATORY [facility] Bilirubin, Direct <0.2 0.0 - 0.3 mg/dL 04/11/2024 8:27 AM EDT LAB[facility]ATORY [facility] Protein 6.2 6.0 - 8.3 g/dL 04/11/2024 8:27 AM EDT LAB[facility]ATORY [facility] Blood Venous blood specimen / Unknown Venipuncture / Unknown 04/11/2024 6:40 AM EDT 04/11/2024 7:16 AM EDT Yolanda Palacios MD, PhD LAB BLOOD ORD ERABLES Performing Organization Address City/[facility]/ZIP Co de Phone Number LABORATORY [address] [address] * MAGNESIUM (04/11/2024 6:40 AM EDT) Magnesium 2.1 1.5 - 2.6 mg/dL 04/11/2024 8:27 AM EDT LABORATORY [facility] Blood Venous blood specimen / Unknown Venipuncture / Unknown 04/11/2024 6:40 AM EDT 04/11/2024 7:16 AM EDT Yolanda Palacios MD, PhD LAB BLOOD ORD ERABLES LABORATORY [facility] [address] [place] [address] * MRI ABDOMEN WO CONTRAST (04/09/2024 12:47 PM EDT) Anatomical Region Laterality Modality Abdomen Magnetic Resonan ce 04/09/2024 4:02 PM EDT Narrative 04/09/2024 4:00 PM EDT EXAM: MRI ABDOMEN WITHOUT CONTRAST HISTORY: to evaluate for choledocholithiasis. COMPARISON: CT abdomen and pelvis 01/06/2023; MRI abdomen of 08/20/2018. TECHNIQUE: Multiplanar multisequence MRI of the abdomen without intravenous contrast was performed and reviewed. MRCP was performed. CONTRAST: IV contrast was administered. FINDINGS: LIVER: Normal morphology. Normal parenchymal signal. GALLBLADDER/BILE DUCTS: Cholelithiasis is seen in the gallbladder. Gallbladder wall appears to be mildly thickened measuring up to 5.1 mm (image 21 series 5). There is no intra or extrahepatic biliary ductal dilatation. The common bile duct measures up to 5.8 mm in diameter. No choledocholithiasis is identified. PANCREAS: Unremarkable. GI TRACT: Visualized bowel is unremarkable. SPLEEN: Unremarkable. LYMPH NODES: No lymphadenopathy. ADRENAL GLANDS: Unremarkable. KIDNEYS: No hydronephrosis. Hyperintense T2 lesions scattered in the left kidney were present on previous imaging. VASCULATURE: No aortic aneurysm. ABDOMINAL WALL: Unremarkable. MISCELLANEOUS: No free fluid. IMPRESSION: 1. Cholelithiasis with thickening of the gallbladder wall, possibly acute cholecystitis. 2. No choledocholithiasis is seen. Procedure Note Mariah Spears MD - 04/09/2024 EXAM: MRI ABDOMEN WITHOUT CONTRAST HISTORY: to evaluate for choledocholithiasis. COMPARISON: CT abdomen and pelvis 01/06/2023; MRI abdomen of 08/20/2018. TECHNIQUE: Multiplanar multisequence MRI of the abdomen without intravenous contrastwas performed and reviewed. MRCP was performed. CONTRAST: IV contrast was administered. FINDINGS: LIVER: Normal morphology. Normal parenchymal signal. GALLBLADDER/BILE DUCTS: Cholelithiasis is seen in the gallbladder.Gallbladder wall appears to be mildly thickened measuring up to 5.1 mm(image 21 series 5). There is no intra or extrahepatic biliary ductaldilatation. The common bile duct measures up to 5.8 mm in diameter. Nocholedocholithiasis is identified. PANCREAS: Unremarkable. GI TRACT: Visualized bowel is unremarkable. SPLEEN: Unremarkable. LYMPH NODES: No lymphadenopathy. ADRENAL GLANDS: Unremarkable. KIDNEYS: No hydronephrosis. Hyperintense T2 lesions scattered in the leftkidney were present on previous imaging. VASCULATURE: No aortic aneurysm. ABDOMINAL WALL: Unremarkable. MISCELLANEOUS: No free fluid. IMPRESSION: 1. Cholelithiasis with thickening of the gallbladder wall, possibly acutecholecystitis. 2. No choledocholithiasis is seen. Alonso Galindo MD RAD MRI-MRA * (ABNORMAL) CRP (INFLAMMATORY MARKER) (04/09/2024 11:07 AM EDT) CRP (Inflammatory Marker) 22(H) <=5 mg/L 04/09/2024 11:50 AM EDT LABORATORY [facility] Blood Venous blood specimen / Unknown Venipuncture / Unknown 04/09/2024 11:07 AM EDT 04/09/2024 11:09 AM EDT Alonso Galindo MD LAB BLOOD ORDERABLES LABORATORY [address] [address] * PROCALCITONIN (04/09/2024 11:07 AM EDT) Pathologist [facility] Procalcitonin 0.09 <0.10 ng/mL 04/09/2024 11:37 AM EDT LABORATORY [facility] Blood Venous blood specimen / Unknown Venipuncture / Unknown 04/09/2024 11:07 AM EDT 04/09/2024 11:09 AM EDT Narrative LABORATORY [facility] - 04/09/2024 11:37 AM EDT Less than 0.5 ng/mL: Low risk for progression to sepsis. Review patients condition for localized infections. 0.5 to 2.0 ng/mL: Intermediate risk for progresion to sepsis. Review underlying conditions. Recommend repeat PCT after 6 hours has elapsed. Greater than 2.0 ng/mL: high risk for progression to sepsis unless other causes are known. Alonso Galindo MD LAB BLOOD ORDERABLES LABORATORY [address] [id number] * (ABNORMAL) LIPASE (04/09/2024 11:07 AM EDT) Lipase 62(H) 13 - 60 U/L 04/09/2024 11:50 AM EDT LAB[facility]ATORY [facility] Blood Venous blood specimen / Unknown Venipuncture / Unknown 04/09/2024 11:07 AM EDT 04/09/2024 11:09 AM EDT Alonso Galindo MD LAB BLOOD ORDERABLES Performing Organization Address [facility] de Phone Number LABORATORY [address] [address] * PHOSPHORUS (04/09/2024 11:07 AM EDT) Phosphorus 3.3 2.5 - 4.8 mg/dL 04/09/2024 11:50 AM EDT LABORATORY [facility] Blood Venous blood specimen / Unknown Venipuncture / Unknown 04/09/2024 11:07 AM EDT 04/09/2024 11:09 AM EDT Alonso Galindo MD LAB BLOOD ORDERABLES Performing Organization Address City/[facility] Co de Phone Number LABORATORY [address] [address] * MAGNESIUM (04/09/2024 11:07 AM EDT) Magnesium 1.9 1.5 - 2.6 mg/dL 04/09/2024 11:50 AM EDT LAB[facility]ATORY [facility] Blood Venous blood specimen / Unknown Venipuncture / Unknown 04/09/2024 11:07 AM EDT 04/09/2024 11:09 AM EDT Alonso Galindo MD LAB BLOOD ORDERABLES LABORATORY [address] [address] * (ABNORMAL) CBC (04/09/2024 11:07 AM EDT) WBC 7.54 4.00 - 10.80 K/uL 04/09/2024 11:13 AM EDT LAB[facility]ATORY [facility] RBC 3.97 3.85 - 5.15 M/uL 04/09/2024 11:13 AM EDT LAB[facility] HGB 12.1 12.0 - 15.3 g/dL 04/09/2024 11:13 AM EDT LAB[facility]AT[facility] HCT 35.7(L) 36.0 - 45.2 % 04/09/2024 11:13 AM EDT LAB[facility]ATORY [facility] MCV 89.9 81.5 - 97.5 fL 04/09/2024 11:13 AM EDT LAB[facility]ORY [facility] MCH 30.5 27.0 - 34.0 pg 04/09/2024 11:13 AM EDT LABORATORY [facility] MCHC 33.9 32.0 - 36.0 g/dL 04/09/2024 11:13 AM EDT LAB[facility]ATORY [facility] RDW 13.2 11.5 - 15.5 % 04/09/2024 11:13 AM EDT LABORATORY [facility] PLT 249 140 - 400 K/uL 04/09/2024 11:13 AM EDT LAB[facility]ATORY [facility] MPV 9.7 6.6 - 11.1 fL 04/09/2024 11:13 AM EDT LAB[facility]ATORY [facility] nRBCs 0 <=0 /100 WBCs 04/09/2024 11:13 AM EDT LAB[facility]ORY [facility] Blood Venous blood specimen / Unknown Venipuncture / Unknown 04/09/2024 11:07 AM EDT 04/09/2024 11:09 AM EDT Alonso Galindo MD LAB BLOOD ORDERABLES Performing Organization Address City/[facility]/ZIP Co de Phone Number LABORATORY [address] [address] * PT INR (04/09/2024 11:07 AM EDT) Prothrombin Time 13.9 11.6 - 15.2 seconds 04/09/2024 12:03 PM EDT LABORATORY [facility] INR 1.1 0.8 - 1.2 04/09/2024 12:03 PM EDT LAB[facility]ORY [facility] Blood Venous blood specimen / Unknown Venipuncture / Unknown 04/09/2024 11:07 AM EDT 04/09/2024 11:09 AM EDT Narrative LABORATORY GL - 04/09/2024 12:03 PM EDT Warfarin Therapy INR: 2.0-3.0 conventional anticoagulation INR: 2.5-3.5 high intensity anticoagulation Alonso Galindo MD LAB BLOOD ORDERABLES Performing Organization Address City/[facility] Co de Phone Number LABORATORY [address] [address] * (ABNORMAL) COMPREHENSIVE METABOLIC PANEL (04/09/2024 11:07 AM EDT) BUN 21(H) 6 - 20 mg/dL 04/09/2024 11:50 AM EDT LABORATORY GL CREATININE 1.1(H) 0.5 - 1.0 mg/dL 04/09/2024 11:50 AM EDT LABORATORY GL EGFR 52(L) >=60 mL/min 04/09/2024 11:50 AM EDT LABORATORY GL Comment:eGFR is calculated b ased on the CKD-EPI 2020 equation. SODIUM 139 135 - 146 mmol/L 04/09/2024 11:50 AM EDT LAB[facility]ATORY [facility] POTASSIUM 4.5 3.5 - 5.1 mmol/L 04/09/2024 11:50 AM EDT LAB[facility]ATORY [facility] CHLORIDE 106 98 - 107 mmol/L 04/09/2024 11:50 AM EDT LAB[facility]ORY [facility] CO2 21(L) 22 - 32 mmol/L 04/09/2024 11:50 AM EDT LAB[facility]ATORY [facility] ANION GAP 12 7 - 15 mmol/L 04/09/2024 11:50 AM EDT LAB[facility]ORY [facility] GLUCOSE 87 70 - 120 mg/dL 04/09/2024 11:50 AM EDT LAB[facility]ORY [facility] Albumin 3.6(L) 3.8 - 5.0 g/dL 04/09/2024 11:50 AM EDT LAB[facility]ATORY [facility] AST 230(H) 10 - 35 U/L 04/09/2024 11:50 AM EDT LAB[facility]ORY [facility] Alkaline Phosphatase 190(H) 35 - 130 U/L 04/09/2024 11:50 AM EDT LAB[facility]ORY [facility] Bilirubin, Total 0.7 <=1.2 mg/dL 04/09/2024 11:50 AM EDT LAB[facility]ORY [facility] CALCIUM 8.6 8.4 - 10.2 mg/dL 04/09/2024 11:50 AM EDT LAB[facility] Protein 6.4 6.0 - 8.3 g/dL 04/09/2024 11:50 AM EDT LAB[facility]ORY [facility] ALT 204(H) 10 - 35 U/L 04/09/2024 11:50 AM EDT LAB[facility] Blood Venous blood specimen / Unknown Venipuncture / Unknown 04/09/2024 11:07 AM EDT 04/09/2024 11:09 AM EDT Alonso Galindo MD LAB BLOOD ORDERABLES Performing Organization Address City/State/[facility] de Phone Number LABORATORY [facility] [address] [place] [id number] documented in this encounter Visit Diagnoses Diagnosis Gall stone pancreatitis- Primary Acute pancreatitis Gall stone pancreatitis Acute pancreatitis Chest pain Chest pain, unspecified QT prolongation Nonspecific abnormal electrocardiogram (ECG) (EKG) Acute calculous cholecystitis Calculus of gallbladder with acute cholecystitis, without mention of obstruction Other specified diseases of gallbladder Calculus of gallbladder without cholecystitis without obstruction Calculus of gallbladder without mention of cholecystitis or obstruction Essential hypertension with goal blood pressure less than 140/90 S/P laparoscopic cholecystectomy Other postprocedural status Elevated liver transaminase level HTN, goal below 140/90 Unspecified essential hypertension Dyslipidemia Other and unspecified hyperlipidemia Stage 3a chronic kidney disease (CKD) (HCC) Abdominal pain, RUQ (right upper quadrant) Abdominal pain, right upper quadrant Acute calculous cholecystitis Calculus of gallbladder with acute cholecystitis, without mention of obstruction Elevated liver transaminase level S/P laparoscopic cholecystectomy Other postprocedural status documented in this encounter Administered Medications Inactive Administered Medications - up to 3 most recent administrations Medication Order MAR Action Action Date Dose Rate Site Acetaminophen (Tylenol) tab 650 mg 650 mg, Oral, Q6H PRN Pain, Mild, Fever >38C(100.5F), Starting on Wed04/09/24 at 1034, Until Wed04/11/24 at 1910, Maximum of 4 grams (4000 mg) per day. Given 04/10/2024 3:52 PM EDT 650 mg Bisacodyl (Dulcolax) supp 10 mg 10 mg, Rectal, DAILY PRN Constipation, Starting on Wed04/12/24 at 1034, Until Wed04/11/24 at 1910, Administer if no bowel movement within past 72 hours and patient unable to take oral medications. Bisacodyl (Dulcolax) tab 5 mg 5 mg, Oral, DAILY PRN Constipation, Starting on Wed04/12/24 at 1034, Until Wed04/11/24 at 1910, Administer in addition to polyethylene glycol and senna-docusate if no bowel movement in past 72 hours. cefepime in dextrose (Maxipime) ivpb 1 g 1 g, IV Piggyback, Q8HNOW, 15 doses, First dose on Wed04/09/24 at 1915, Last dose on Wed04/14/24 at 1115, Administer over 30 Minutes Rate Verify 04/10/2024 5:58 PM EDT 100 mL/hr New Bag 04/10/2024 12:50 PM EDT 1 g 100 mL/hr New Bag 04/10/2024 2:59 AM EDT 1 g 100 mL/hr cefepime in dextrose (Maxipime) ivpb 1 g 1 g, IV Piggyback, Q8HNOW, 2 doses, First dose (after last modification) on Wed04/10/24 at 1915, Last dose on Wed04/11/24 at 0315, Administer over 30 Minutes New Bag 04/11/2024 3:28 AM EDT 1 g 100 mL/hr New Bag 04/10/2024 8:01 PM EDT 1 g 100 mL/hr cefepime in dextrose premix ivpb 2 g 2 g, IV Piggyback, ONCE, 1 dose, On Wed04/09/24 at 1145, Administer over 30 Minutes New Bag 04/09/2024 1:39 PM EDT 2 g 100 mL/hr Haloperidol Lactate (Haldol) 5 MG/ML inj 1 mg 1 mg, IV Push, ONCE, On Wed04/10/24 at 1615, For 1 dose Given 04/10/2024 3:41 PM EDT 1 mg hEParin inj 5,000 Units 5,000 Units, Subcutaneous, Q8H, First dose (after last modification) on Wed04/10/24 at 1645, Until Discontinued Given 04/11/2024 6:08 AM EDT 5,000 Units Abdomen Right Lower Given 04/10/2024 9:00 PM EDT 5,000 Units A bdomen Left Lower Given 04/10/2024 4:43 PM EDT 5,000 Units A bdomen Right Lower HYDROmorphone (Dilaudid) inj 0.5 mg 0.5 mg, IV Push, Q4H PRN Pain, Severe, Starting on Wed04/09/24 at 1051, Until Wed04/11/24 at 1910 isolyte-S pH 7.4 infusion Intravenous, at 100 mL/hr, Plasma-LYTE 148, isolyte-S, and isolyte-S pH 7.4 are considered equivalent - including for MAR barcode scanning., CONTINUOUS, Starting on Wed04/09/24 at 1115, Until Wed04/10/24 at 0714 Restarted 04/10/2024 2:01 PM EDT Continue from Pre-Op 04/10/2024 12:34 PM EDT 10 0 mL/hr Rate Verify 04/10/2024 9:26 AM EDT 100 mL/hr isolyte-S pH 7.4 infusion Intravenous, at 100 mL/hr, Plasma-LYTE 148, isolyte-S, and isolyte-S pH 7.4 are considered equivalent - including for MAR barcode scanning., CONTINUOUS, Starting on Wed04/10/24 at 0900, Until Wed04/10/24 at 1812 New Bag 04/10/2024 6:04 PM EDT 100 mL/hr Continue from Pre-Op 04/10/2024 12:34 PM EDT 10 0 mL/hr Restarted 04/10/2024 11:26 AM EDT 100 mL/hr levothyroxine (Levoxyl) tab 75 mcg 75 mcg, Oral, [id number], First dose on 04/10/24 at 0630, Until Discontinued Given 04/11/2024 6:08 AM EDT 75 mcg Given 04/10/2024 5:57 AM EDT 75 mcg Lisinopril (Prinivil) tab 5 mg 5 mg, Oral, Daily(AM), First dose on Wed04/09/24 at 1115, Until Discontinued Given 04/10/2024 7:48 AM EDT 5 mg Given 04/09/2024 1:51 PM EDT 5 mg LORazepam (Ativan) inj 0.5 mg 0.5 mg, IV Push, ONCALL, Starting on Wed04/09/24 at 1151, Until Wed04/09/24 at 1201, For 1 dose, 15 min prior to MRI MUST FURTHER DILUTE FOR IV PUSH WITH EQUAL VOLUME OF NSS Given 04/09/2024 12:01 PM EDT 0.5 mg melatonin tab 3 mg 3 mg, Oral, HS PRN Insomnia, Starting on Wed04/09/24 at 1034, Until Wed04/11/24 at 1910 metroNIDAZOLE in NSS (Flagyl) ivpb 500 mg 500 mg, IV Piggyback, Q8H, First dose on Wed04/09/24 at 1130, Last dose on Wed04/14/24 at 0600, For 5 days New Bag 04/10/2024 6:01 AM EDT 500 mg 100 mL/hr New Bag 04/09/2024 9:13 PM EDT 500 mg 100 mL/hr New Bag 04/09/2024 2:28 PM EDT 500 mg 100 mL/hr metroNIDAZOLE in NSS (Flagyl) ivpb 500 mg 500 mg, IV Piggyback, Q8H, First dose (after last modification) on Wed04/10/24 at 1645, Last dose on Wed04/13/24 at 2200, For 11 doses New Bag 04/10/2024 4:39 PM EDT 500 mg 100 mL/hr metroNIDAZOLE in NSS (Flagyl) ivpb 500 mg 500 mg, IV Piggyback, Q8H, First dose (after last modification) on Wed04/10/24 at 2200, Last dose on Wed04/10/24 at 2200, For 1 dose New Bag 04/10/2024 9:00 PM EDT 500 mg 100 mL/hr nortriptyline (Pamelor) cap 50 mg 50 mg, Oral, Daily(AM), First dose on Wed04/09/24 at 1200, Until Discontinued Given 04/11/2024 7:52 AM EDT 50 mg Given 04/10/2024 7:47 AM EDT 50 mg Given 04/09/2024 1:51 PM EDT 50 mg ondansetron (Zofran) inj 4 mg 4 mg, IV Push, Q6H PRN Nausea, Starting on Wed04/09/24 at 1034, Until Wed04/11/24 at 191 oxyCODONE (Oxy IR) tab 5 mg 5 mg, Oral, Q4H PRN Pain, Moderate, Starting on Wed04/09/24 at 1051, Until Wed04/11/24 at 191 Polyethylene Glycol 3350 (Miralax) oral powder 17 g 17 g (1 Packet), Oral, DAILY PRN Constipation, Starting on Wed04/09/24 at 1034, Until Wed04/11/24 at 191, Administer if no bowel movement within past 24 hours. senna-docusate (Senokot-S) 1 Tablet 1 Tablet, Oral, BID PRN Constipation, Starting on Wed04/11/24 at 1034, Until Wed04/11/24 at 191, Administer in addition to polyethylene glycol if no bowel movement within past 48 hours. sodium chloride 0.9 % flush/inj 3 mL 3 mL, IV Push, PRN Other, Line Patency, Starting on Wed04/09/24 at 1033, Until Wed04/11/24 at 191, Do not flush if lock, PICC, or central line not in place, IV infusing or unable to flush documented in this encounter Active and Recently Administered Medications Times are shown in EDT. Scheduled Medication Order 04/09/2024 04/10/2024 04/11/2024 cefepime in dextrose (Maxipime) ivpb 1 g (CANCELED) 1 g, IV Piggyback, Q8HNOW, 15 doses, First dose on Wed04/09/24 at 1915, Last dose on Wed04/14/24 at 1115, Administer over 30 Minutes 1825 (New Bag - Provider: Eun Evans, PATRICIA) 0259 (New Bag - Provider: Tasia Vela, PATRICIA)0329 (Stopped - Provider: Rita Murphy, PATRICIA)1250 (New Bag - Provider: Sarah Belle CRNA - Comment: given in OR.)1758 (Rate Verify - Provider: Rita Murphy, RN)1803 (Stopped - Provider: Rita Murphy, PATRICIA) cefepime in dextrose (Maxipime) ivpb 1 g (COMPLETED) 1 g, IV Piggyback, Q8HNOW, 2 doses, First dose (after last modification) on Wed04/10/24 at 1915, Last dose on Wed04/11/24 at 0315, Administer over 30 Minutes 2000 (New Bag - Provider: Tasia Vela RN)203 (Stopped - Provider: Cleo Zacarias, PATRICIA) 032 (New Bag - Provider: Cleo Zacarias, PATRICIA)0358 (Stopped - Provider: Cleo Zacarias RN) cefepime in dextrose premix ivpb 2 g (COMPLETED) 2 g, IV Piggyback, ONCE, 1 dose, On Wed04/09/24 at 1145, Administer over 30 Minutes 1339 (New Bag - Provider: Eun Evans, PATRICIA) Haloperidol Lactate (Haldol) 5 MG/ML inj 1 mg (COMPLETED) 1 mg, IV Push, ONCE, On Wed04/10/24 at 1615, For 1 dose 1541 (Given - Provider: Bella Martínez, PATRICIA) hEParin inj 5,000 Units 5,000 Units, Subcutaneous, Q8H, First dose (after last modification) on Wed04/10/24 at 1645, Until Discontinued 1643 (Given - Provider: Rita Murphy, PATRICIA)2100 (Given - Provider: Tasia Vela, PATRICIA) 0608 (Given - Provider: Cleo Zacarias RN)1400 (Due) levothyroxine (Levoxyl) tab 75 mcg 75 mcg, Oral, [id number], First dose on Wed04/10/24 at 0630, Until Discontinued 0557 (Given - Provider: Tasia Vela, PATRICIA) 0608 (Given - Provider: Cleo Zacarias RN) Lisinopril (Prinivil) tab 5 mg (CANCELED) 5 mg, Oral, Daily(AM), First dose on Wed04/09/24 at 1115, Until Discontinued 1351 (Given - Provider: Eun Evans, PATRICIA) 0748 (Given - Provider: Rita Murphy, PATRICIA) LORazepam (Ativan) inj 0.5 mg (COMPLETED) 0.5 mg, IV Push, ONCALL, Starting on Wed04/09/24 at 1151, Until Wed04/09/24 at 1201, For 1 dose, 15 min prior to MRI MUST FURTHER DILUTE FOR IV PUSH WITH EQUAL VOLUME OF NSS 1201 (Given - Provider: Eun Evans, PATRICIA) metroNIDAZOLE in NSS (Flagyl) ivpb 500 mg (CANCELED) 500 mg, IV Piggyback, Q8H, First dose on Wed04/09/24 at 1130, Last dose on Wed04/14/24 at 0600, For 5 days 1428 (New Bag - Provider: Eun Evans, PATRICIA)2113 (New Bag - Provider: Tasia Vela, PATRICIA) 0601 (New Bag - Provider: Tasia Vela, PATRICIA)0701 (Stopped - Provider: Rita Murphy, RN)1400 (Not Given - Provider: Rita Murphy, PATRICIA - Reason: Order Clarified) metroNIDAZOLE in NSS (Flagyl) ivpb 500 mg (CANCELED) 500 mg, IV Piggyback, Q8H, First dose (after last modification) on Wed04/10/24 at 1645, Last dose on Wed04/13/24 at 2200, For 11 doses 1639 (New Bag - Provider: Rita Murphy, PATRICIA)1740 (Stopped - Provider: Rita Murphy, RN) metroNIDAZOLE in NSS (Flagyl) ivpb 500 mg (COMPLETED) 500 mg, IV Piggyback, Q8H, First dose (after last modification) on Wed04/10/24 at 2200, Last dose on Wed04/10/24 at 2200, For 1 dose 2100 (New Bag - Provider: Tasia Vela RN) nortriptyline (Pamelor) cap 50 mg 50 mg, Oral, Daily(AM), First dose on Wed04/09/24 at 1200, Until Discontinued 1351 (Given - Provider: Eun Evans RN) 0747 (Given - Provider: Rita Murphy RN) 0752 (Given - Provider: Trixie Melgar LPN) Continuous Medication Order 04/09/2024 04/10/2024 04/11/2024 isolyte-S pH 7.4 infusion () Intravenous, at 100 mL/hr, Plasma-LYTE 148, isolyte-S, and isolyte-S pH 7.4 are considered equivalent - including for MAR barcode scanning., CONTINUOUS, Starting on Wed04/09/24 at 1115, Until Wed04/10/24 at 0714 1350 (New Bag - Provider: Eun Evans RN)2243 (Stopped - Provider: Rita Murphy RN)2244 (New Bag - Provider: Tasia Vela RN) 0228 (Paused - Provider: Rita Murphy RN)0233 (Restarted - Provider: Rita Murphy RN)0259 (Paused - Provider: Rita Murphy, PATRICIA)0329 (Restarted - Provider: Rita Murphy RN)0351 (Paused - Provider: Rita Murphy, RN)0357 (Restarted - Provider: Rita Murphy, PATRICIA)0519 (Paused - Provider: Rita Murphy, RN)0559 (Restarted - Provider: Rita Murphy, PATRICIA)0926 (Rate Verify - Provider: Rita Murphy RN)1234 (Continue from Pre-Op - Provider: Sarah Belle CRNA)1400 (Paused - Provider: Sarah Belle CRNA - Comment: Switch to gravity)1401 (Restarted - Provider: Sarah Belle CRNA) isolyte-S pH 7.4 infusion (CANCELED) Intravenous, at 100 mL/hr, Plasma-LYTE 148, isolyte-S, and isolyte-S pH 7.4 are considered equivalent - including for MAR barcode scanning., CONTINUOUS, Starting on Wed04/10/24 at 0900, Until Wed04/10/24 at 1812 0951 (New Bag - Provider: Rita Murphy RN)0952 (Rate Verify - Provider: Rita Murphy RN)1123 (Paused - Provider: Rita Murphy RN)1126 (Restarted - Provider: Rita Murphy RN)1234 (Continue from Pre-Op - Provider: Sarah Belle CRNA)1237 (Stopped - Provider: Sarah Belle CRNA)1804 (New Bag - Provider: Rita Murphy RN)1812 (Stopped - Provider: Rita Murphy RN) PRN Medication Order 04/09/2024 04/10/2024 04/11/2024 Acetaminophen (Tylenol) tab 650 mg 650 mg, Oral, Q6H PRN Pain, Mild, Fever >38C(100.5F), Starting on Wed04/09/24 at 1034, Until Wed04/11/24 at 1910, Maximum of 4 grams (4000 mg) per day. 1552 (Given - Provider: Bella Martínez RN) Bisacodyl (Dulcolax) supp 10 mg(Linked Group 1) 10 mg, Rectal, DAILY PRN Constipation, Starting on Wed04/12/24 at 1034, Until Wed04/11/24 at 1910, Administer if no bowel movement within past 72 hours and patient unable to take oral medications. Bisacodyl (Dulcolax) tab 5 mg(Linked Group 1) 5 mg, Oral, DAILY PRN Constipation, Starting on Wed04/12/24 at 1034, Until Wed04/11/24 at 1910, Administer in addition to polyethylene glycol and senna-docusate if no bowel movement in past 72 hours. BUPivacaine-EPINEPHrine (PF) (Sensorcaine-EPINEPHrine) 0.5%-1:667824 inj (CANCELED) ONCE PRN INTRA PROCEDURE, Starting on Wed04/10/24 at 1430, Until Wed04/10/24 at 1455, Intra-Op 1430 (Given - Provider: Alan Torres MD) HYDROmorphone (Dilaudid) inj 0.5 mg 0.5 mg, IV Push, Q4H PRN Pain, Severe, Starting on Wed04/09/24 at 1051, Until Wed04/11/24 at 191 melatonin tab 3 mg 3 mg, Oral, HS PRN Insomnia, Starting on Wed04/09/24 at 1034, Until Wed04/11/24 at 1909 ondansetron (Zofran) inj 4 mg 4 mg, IV Push, Q6H PRN Nausea, Starting on Wed04/09/24 at 1034, Until Wed04/11/24 at 1909 oxyCODONE (Oxy IR) tab 5 mg 5 mg, Oral, Q4H PRN Pain, Moderate, Starting on Wed04/09/24 at 1051, Until Wed04/11/24 at 1909 Polyethylene Glycol 3350 (Miralax) oral powder 17 g(Linked Group 1) 17 g (1 Packet), Oral, DAILY PRN Constipation, Starting on Wed04/09/24 at 1034, Until Wed04/11/24 at 191, Administer if no bowel movement within past 24 hours. senna-docusate (Senokot-S) 1 Tablet(Linked Group 1) 1 Tablet, Oral, BID PRN Constipation, Starting on Wed04/11/24 at 1034, Until Wed04/11/24 at 1909, Administer in addition to polyethylene glycol if no bowel movement within past 48 hours. sodium chloride 0.9 % flush/inj 3 mL 3 mL, IV Push, PRN Other, Line Patency, Starting on Wed04/09/24 at 1033, Until Wed04/11/24 at 191, Do not flush if lock, PICC, or central line not in place, IV infusing or unable to flush sodium chloride IR 0.9 % irrigation (CANCELED) ONCE PRN INTRA PROCEDURE, Starting on Wed04/10/24 at 1429, Until Wed04/10/24 at 1455, Intra-Op 1429 (Given - Provider: Alan Torres MD) Linked Groups Order Group 1: Polyethylene Glycol 3350 (Miralax) oral powder 17 gJump to med 17 g (1 Packet), Oral, DAILY PRN Constipation, Starting on Wed04/09/24 at 1034, Until Wed04/11/24 at 191, Administer if no bowel movement within past 24 hours. And senna-docusate (Senokot-S) 1 TabletJump to med 1 Tablet, Oral, BID PRN Constipation, Starting on Wed04/11/24 at 1034, Until Wed04/11/24 at 191, Administer in addition to polyethylene glycol if no bowel movement within past 48 hours. And Bisacodyl (Dulcolax) tab 5 mgJump to med 5 mg, Oral, DAILY PRN Constipation, Starting on Wed04/12/24 at 1034, Until Wed04/11/24 at 191, Administer in addition to polyethylene glycol and senna- docusate if no bowel movement in past 72 hours. And Bisacodyl (Dulcolax) supp 10 mgJump to med 10 mg, Rectal, DAILY PRN Constipation, Starting on Wed04/12/24 at 1034, Until Wed04/11/24 at 1909, Administer if no bowel movement within past 72 hours and patient unable to take oral medications. documented in this encounter Advance Directives * [...] 1:42 PM 12/26/2021 4:32 PM This order r eflects the patients wishes and were consensually agreed [...] Directives occurred with: Not Discussed Care Teams Supervisor [employer] Relationship Specialty Start Date End Date Becky October JIMI Rueda [address] [place] [address] PCP - General Physician Igniter Assembler 01/28/24 documented as of this encounter
--- OUTSIDE RECORDS SUMMARY | 2024-09-13 09:56 | External Medical Summary | Summary of Care ---
Author Name Unknown Organization [facility] Address [address] [place] [address] Phone [phone] Care Team Providers Care Tire Worker Name Role Phone MarciVivian benson Mohit KRAUSE Primary Care Provider [phone] Encounter Details Date Type Department Care Team (Late st Contact Info) Description 04/08/2024 Orders Only Unspecified Department Alonso Galindo MD [address] [place] [address] [place] [address] Allergies Active Allergy Reactions Criticality Noted Date Comments Cephalexin 10/07/2005 Nausea and vomitting Fluconazole 05/02/2010 Nauseated Erythromycin 04/20/2000 nausea Nitrofuran Derivatives 04/20/2000 nausea Penicillins 04/20/2000 in childhood Sulfa Antibiotics 04/20/2000 in childhood documented as of this encounter (statuses as of 04/13/2024) Medications Medication Sig Dispensed Refills Start Date [...] AN EMPTY STOMACH 45 Tablet 03/16/2024 Active documented as of this encounter (statuses as of 04/13/2024) Active Problems Problem Noted Date Diagnosed Date [...] as of this encounter (statuses as of 04/13/2024) Resolved Problems Problem Noted Date Diagnosed Date [...] as of this encounter (statuses as of 04/13/2024) Immunizations Name Administration Dates Next Due COVID-19 [...] (15 years old or older) No 12/25/19 Cognitive Status Response Date of Assessm ent Because of a physical, menta l, or emotional condition, do you have serious difficulty concentrating, remembering, or making decisions? (5 years old or older) No 12/24/2021 documented as of this encounter Plan of Treatment Upcoming Encounters Date Type Department Care Team (Late st Contact Info) Description 04/19/2024 12:00 PM EDT Office Visit [facility] [address] [facility] [place] [address] Vivian Pena PA-C [address] [facility] [place] [address] 05/01/2024 3:30 PM EDT Office Visit General Surgery [facility]any Alcantara [address] [place] [address] Alan Torres MD [address] [place] [address] 05/02/2024 2:15 PM EDT Office Visit Orthopaedics Spine Surgery, [place] [place] [address] [place] [address] Jules Sanchez MD [address] [place] [address] 08/15/2024 11:00 AM EST Office Visit Cardiology, [facility] [address] [place] [address] Conchis Urrutia PA-C [address] [place] [address] 09/27/2024 11:30 AM EDT Office Visit Otolaryngology [facility] [address] [phone] Dennise Guerra PA-C [address] [place] [address] Health Maintenance Due Date Last Done Comments [...] Additional history exists CKD PHOS USE SMARTSET 82688 04/09/202503/20, 03/23/2024, 02/26/2023, Additional history exists CKD HGB USE SMARTSET 54489 04/11/202504/11, 04/09/2024, 03/23/2024, Additional history exists Cologuard [...] this encounter Medical Devices Implanted Type Area Bi Technical Lead Device Identifier Shelf Expiration Date Model / Serial / Lot Screw Implanted:Qty : 4 on 12/24/2021 by Jules Sanchez MD at OR [facility] Screw N/A: Spine Lumbar [employer] [id number] / / Lens Intraoc 20.0 - [id number] - [id number] Implanted:Qty : 1 on 06/26/2021 by Madhu Romero MD at OR [facility] Left: Eye BAUSCH [employer] LOMB 03/18/2026 [id number] / [id number] / [id number] Lens Intraoc 19.5 - [id number] - [id number] Implanted:Qty : 1 on 07/29/2021 by Madhu Romero MD at OR [facility] Right: Eye [employer]CH [employer] LOMB 02/15/2026 [id number] / [id number] / [id number] Graft Bone Dbm Matrix 2.5x5cm - [id number] - [id number] Implanted:Qty : 1 on 12/24/2021 by Jules Sanchez MD at OR [facility] N/A: Spine Lumbar [employer] [id number] 06/09/2024 [id number] / [id number] / LOT NA Vitoss Bimodal Foam Pack 2.5cc - [id number] - [id number] Implanted:Qty : 1 on 12/24/2021 by Jules Sanchez MD at OR [facility] N/A: Spine Lumbar JESUS : SPINE [id number] 10/13/2022 [id number] / [id number] / [id number] Vitoss Bimodal Foam Pack 2.5cc - [id number] - [id number] Implanted:Qty : 1 on 12/24/2021 by Jules Sanchez MD at OR [facility] N/A: Spine Lumbar JESUS : SPINE [id number] 10/13/2022 [id number] / [id number] / [id number] Head Poly Top Load Matrix - [id number] Implanted:Qty : 4 on 12/24/2021 by Jules Sanchez MD at OR [facility] N/A: Spine Lumbar SYNTHES : DEPUY 001 / / Cap Locking W/O Saddle Matrix - [id number] Implanted:Qty : 4 on 12/24/2021 by Jules Sanchez MD at OR [facility] N/A: Spine Lumbar SYNTHES : DEPUY 9 / / Graft Bone Infuse Kit Xsmall - [id number] - [id number] Implanted:Qty : 1 on 12/24/2021 by Jules Sanchez MD at OR [facility] N/A: Spine Lumbar [employer] : NEUROLOGIC PAIN [id number] 10/16/2022 [id number] / [id number] / [id number] [place]oval Implanted:Qty : 2 on 12/24/2021 by Jules Sanchez MD at OR [facility] N/A: Spine Lumbar [employer] [id number] / / Cage Implanted:Qty : 1 on 12/24/2021 by Jules Sanchez MD at OR [facility] N/A: Spine Lumbar [employer] [id number] / / documented as of this encounter Procedures Procedure Name Priority Date/Time Associated Diagnosis Comments RADIOLOGY EXAM - CT (IMAGES ONLY, NO REPORT) Routine 04/08/2024 1:25 PM EDT documented in this encounter Results * RADIOLOGY EXAM - CT (IMAGES ONLY, NO REPORT) (04/08/2024 1:25 PM EDT) 04/08/2024 1:25 PM EDT Narrative Scheduling, Silent - 04/13/2024 1:24 PM EDT This is an imaging study not interpreted or resulted by a [facility] or [facility] contracted radiologist. Alonso Galindo MD RAD CT documented in this encounter Advance Directives * [...] Directives occurred with: Not Discussed Care Teams Tire Worker Relationship Specialty Start Date End Date Becky Vivian JIMI Rueda [address] [facility] [place] [address] PCP - General Physician Food Storeroom Clerk 01/28/24 documented as of this encounter
--- OUTSIDE RECORDS SUMMARY | 2024-09-13 09:56 | External Medical Summary ---
Author Name Unknown Address Unknown Organization [id number]:LABORATORY [facility] - [address] [place] [address] Laboratory Report Ordering Provider Test Date Status BHARATHI TOBIAS 04/11/2024 06:40:00 Final Observation Date Value Abnormality Reference (Units ) Status BUN 04/11/2024 06:40:00 17 6-20 (mg/dL) Final Creatinine 04/11/2024 06:40:00 1.0 0.5-1.0 (mg/dL) Final Glomerular filtration rate/1.73 sq M.predicted [Volume Rate/Area] in Serum, Plasma or Blood by Creatinine-based formula (CKD-EPI) 04/11/2024 06:40:00 63 >=60 (mL/min) Final eGFR is calculated based on the CKD-EPI 2020 equation. Sodium 04/11/2024 06:40:00 136 135-146 (m mol/L) Final Potassium 04/11/2024 06:40:00 4.9 3.5-5.1 (m mol/L) Final Cl 04/11/2024 06:40:00 104 98-107 (mm ol/L) Final CO2 04/11/2024 06:40:00 21 Below low normal 22- 32 (mmol/L) Final Anion gap 04/11/2024 06:40:00 11 7-15 (mmol /L) Final Glucose 04/11/2024 06:40:00 130 Above high normal 70 -120 (mg/dL) Final Calcium 04/11/2024 06:40:00 8.3 Below low normal 8.4 -10.2 (mg/dL) Final Performing Location LABORATORY [facility] - [address] [place] [address]
--- OUTSIDE RECORDS SUMMARY | 2024-09-13 09:56 | External Medical Summary ---
Author Name Unknown Address Unknown Organization [id number]:LABORATORY [facility] - [facility] [address] [place] [address] Laboratory Report Ordering Provider Test Date Status BHARATHI TOBIAS 04/11/2024 06:40:00 Final Observation Date Value Abnormality Reference (Units ) Status WBC, Total 04/11/2024 06:40:00 9.53 4.00-10.80 (K/uL) Final RBC 04/11/2024 06:40:00 3.70 3.85-5.15 (M/uL) Final Hemoglobin 04/11/2024 06:40:00 11.0 Below low normal 12.0-15.3 (g/dL) Final HCT 04/11/2024 06:40:00 32.6 Below low normal 36.0-45.2 (%) Final MCV 04/11/2024 06:40:00 88.1 81.5-97.5 (fL) Final MCH 04/11/2024 06:40:00 29.7 27.0-34.0 (pg) Final MCHC 04/11/2024 06:40:00 33.7 32.0-36.0 (g/dL) Final RDW 04/11/2024 06:40:00 12.7 11.5-15.5 (%) Final Platelets 04/11/2024 06:40:00 243 140-400 (K/uL) Final MPV 04/11/2024 06:40:00 10.1 6.6-11.1 (fL) Final Nucleated erythrocytes/100 leukocytes [Ratio] in Blood by Automated count 04/11/2024 06:40:00 0 <=0 (/100 WBCs) Final Performing Location LABORATORY [facility] - [address] [place] [address]
--- OUTSIDE RECORDS SUMMARY | 2024-09-13 09:56 | External Medical Summary | Summary of Care ---
Author Name Unknown Organization [facility] Address [address] [facility] [place] [address] Phone [phone] Care Team Providers Care Counseling Department Chair Name Role Phone Vivian Pena PA-C Primary Care Provider [phone] Reason for Visit * Reason Onset Date Comments Hospital Follow-Up Hospital Follow-Up 04/19/2024 Encounter Details Date Type Department Care Team (Late st Contact Info) Description 04/19/2024 12:00 PM EDT Office Visit Family Practice [facility] [place]te [place] [address] [facility] [place] [address] Vivian Pena PA-C 200 [facility] [place] [address] Gall bladder disease*; HTN, goal below 140/90; S/P laparoscopic cholecystectomy; Hospital discharge follow-up; Acquired hypothyroidism; Essential hypertension with goal blood pressure less than 140/90; Meniere's disease, unspecified laterality Allergies Active Allergy Reactions Criticality Noted Date Comments Cephalexin 10/07/2005 Nausea and vomitting Fluconazole 05/02/2010 Nauseated Erythromycin 04/20/2000 nausea Nitrofuran Derivatives 04/20/2000 nausea Penicillins 04/20/2000 in childhood Sulfa Antibiotics 04/20/2000 in childhood documented as of this encounter (statuses as of 04/19/2024) Medications Medication Sig Dispensed Refills Start Date [...] 04/19/2024 Active Lisinopril 10 MG Oral Tablet (Prinivil)Indicatio ns:Essential hypertension with goal blood pressure less than 140/90 Take 1 Tablet by mouth in the morning. 90 Tablet 3 04/19/2024 Active Nortriptyline HCl 25 MG Oral Capsule (Pamelor)Indication s:Meniere's disease, unspecified laterality Take 2 Capsules by mouth daily. 180 Capsule 3 04/19/2024 Active Estrogens Conjugated 0.45 MG Oral Tablet (Premarin) Take 1 tablet by mouth every other day. 45 Tablet 3 03/03/2023 4 Discontinu ed(Refill) Nortriptyline HCl 25 MG Oral Capsule (Pamelor)Indication s:Meniere's disease, unspecified laterality Take 2 Capsules by mouth daily. 180 Capsule 1 09/23/2023 4 Discontinu ed(Refill) Premarin 0.625 MG/GM Vaginal Cream (Estrogens Conjugated)Indicati ons:Postmenopausal atrophic vaginitis APPLY 1/2 APPLICATOR AT BEDTIME 2-3 TIMES A WEEK. 90 g 10/20/2023 4 Discontinu ed(Medicat ion List Clean Up) Levothyroxine Sodium 75 MCG Oral Tablet (Levoxyl)Indication s:Acquired hypothyroidism TAKE ONE-HALF TABLET BY MOUTH EVERY DAY ON AN EMPTY STOMACH 45 Tablet 03/16/2024 4 Discontinu ed(Refill) Lisinopril 10 MG Oral Tablet (Prinivil)Indicatio ns:Essential hypertension with goal blood pressure less than 140/90 Take 1 Tablet by mouth in the morning. 04/13/2024 4 Discontinu ed(Refill) documented as of this encounter (statuses as of 04/19/2024) Active Problems Problem Noted Date Diagnosed Date [...] as of this encounter (statuses as of 04/19/2024) Resolved Problems Problem Noted Date Diagnosed Date [...] as of this encounter (statuses as of 04/19/2024) Immunizations Name Administration Dates Next Due COVID-19 mRNA, LNP-s, No Pre serve, 2-Dose Series ([employer] 09/14/2020 Pneumococcal Conjugate Vacc, 13 Valent (Prevnar) [...] Sign Reading Time Taken Comments Blood Pressure 126/80 04/19/2024 11:57 AM EDT Pulse 90 04/19/2024 11:57 AM EDT Temperature 36.8 C (98.2 F) 04/19/2024 11:57 AM E DT Respiratory Rate 20 04/19/2024 11:57 AM EDT Oxygen Saturation 98% 04/19/2024 11:57 AM EDT Inhaled Oxygen Concentration - - Weight 65.3 kg (144 lb) 04/19/2024 11:57 AM EDT Height - - Body Mass Index 25.51 04/09/2024 9:54 AM EDT documented in this [...] as of this encounter Progress Notes * Vivian Pena PA-C - 04/19/2024 12:17 PM EDT SUBJECTIVE: Gabby Velásquez is a 68 year old female. Chief Complaint Patient presents with Hospital Follow-Up Hospital Follow-Up Recent Admission: Patient was recently admitted to [facility]. The date of discharge was 04/11/24. Discharge report received and reviewed. HPI: patient is a 68 year old female who went to the ER on 04/08 with right sided abdominal pain. Went to [facility] ER. There is was determined she had gall stones. She then awaited transport to [facility] where she had a laparoscopic cholestectomy on 04/10/24. Discharged the following day. Her surgeon was Dr Torres. Since getting home has been feeling better. Some abdominal soreness. No pain, nausea, vomiting, diarrhea, constipation, or urinary symptoms No fever or chills. Appetite fair Sleep fair Urination/ bowel movements normal Patient Active Problem List Diagnosis Acquired hypothyroidism Meniere's disease Cervical spine degeneration HTN, goal below 140/90 Stage 3a chronic kidney disease (CKD) (HCC) Dyslipidemia S/P lumbar laminectomy Dyslipidemia, goal LDL below 100 SVT (supraventricular tachycardia) (HCC) Hypertensive kidney disease with stage 3a chronic kidney disease (HCC) Elevated liver transaminase level S/P laparoscopic cholecystectomy Current Outpatient Medications Medication Sig Dispense Refill Estrogens Conjugated 0.45 MG Oral Tablet (Premarin) Take 1 tablet by mouth every other day. 45 Tablet 3 Nortriptyline HCl 25 MG Oral Capsule (Pamelor) Take 2 Capsules by mouth daily. 180 Capsule 1 Vitamin D3 25 MCG (1000 UT) Oral Capsule (Cholecalciferol) Take 1 Capsule by mouth in the morning. tiZANidine HCl 4 MG Oral Tablet Take 0.5 Tablets by mouth every 8 hours as needed for Muscle spasms. 90 Tablet 1 Levothyroxine Sodium 75 MCG Oral Tablet (Levoxyl) TAKE ONE-HALF TABLET BY MOUTH EVERY DAY ON AN EMPTY STOMACH 45 Tablet 0 Lisinopril 10 MG Oral Tablet (Prinivil) Take 1 Tablet by mouth in the morning. No current facility-administered medications for this visit. Current and discharge medications have been reconciled. Review of patient's allergies indicates: Allergen Reactions Cephalexin Nausea and vomitting Diflucan [Fluconazole] Nauseated Erythromycin nausea Nitrofuran Derivatives nausea Penicillins in childhood Sulfa Antibiotics in childhood OBJECTIVE: BP 126/80 | Pulse 90 | Temp 36.8 C (98.2 F) (Tympanic) | Resp 20 | Wt 65.3 kg (144 lb) | SpO2 98% | BMI 25.51 kg/m | BSA 1.7 m Review Of Systems: Skin: negative Eyes: negative Ears/Nose/Throat: negative Respiratory: negative Cardiovascular: negative Gastrointestinal: negative Genitourinary: negative Musculoskeletal: pt denies significant joint pain or stiffness Neurologic: negative Psychiatric: negative Hematologic/Lymphatic/Immunologic: negative Endocrine: negative PHYSICAL EXAM: General: alert, healthy, no distress, well nourished, well developed, comfortable, and cooperative Head: Normocephalic, No masses, lesions, tenderness or abnormalities Eye Exam: PERRLA, extraocular movements intact, conjunctiva are pink and non- injected, sclera clear Neck: supple, no adenopathy, no bruits, thyroid normal size, non-tender, without nodularity Heart: regular rate & rhythm, no murmur, and no gallops Lungs: chest symmetric with normal AP diameter, no chest deformities noted, normal respiratory rateand rhythm, no chest wall tenderness, diaphragmatic excursion normal, lungs clear to auscultation Abdomen: abdomen soft, normal bowel sounds, no masses or organomegaly, no rebound or guarding, no CVA tenderness, no bladder distention identified, no bruits, and incision sites healing well. Mild ecchymoses and induration around incision site at umbilicus Back: back symmetric, no curvature, no costovertebral angle tenderness, no tenderness to percussionor palpation ASSESSMENT: Gall bladder disease (Primary) - DISCH MED RECON CUR MED LIS HTN, goal below 140/90 - DISCH MED RECON CUR MED LIS S/P laparoscopic cholecystectomy - DISCH MED RECON CUR MED LIS Hospital discharge follow-up - DISCH MED RECON CUR MED LIS PLAN: Continue present medication(s): Follow up as needed. I spent a total of 30-39 minutes (exact time 33 mins) minutes on the date of service in preparation, delivery, and documentation of the care provided to Gabby Velásquez excluding any time spent in performance of separately billed services. Vivian Pena PA-C documented in this encounter Nursing Notes * Nya Carter LPN - 04/19/2024 11:56 AM EDT Gabby Velásquez presents for hospital follow up. Medications & HM reviewed. Had a cholecystectomy. Says she's been doing well since discharge. Has a follow up with the surgeonon Wednesday. documented in this encounter Plan of Treatment Upcoming Encounters Date Type Department Care Team (Late st Contact Info) Description 05/01/2024 3:30 PM EDT Office Visit General Surgery Fany Alcantara [address] [place] [address] Alan Torres MD [address] [place] [address] 05/02/2024 2:15 PM EDT Office Visit Orthopaedics Spine Surgery, Fany Verduzco [address] [place] [address] Jules Sanchez MD [address] [place] [address] 08/15/2024 11:00 AM EST Office Visit Cardiology, [facility] [address] [place] [address] Conchis Urrutia PA-C [address] [place] [address] 09/27/2024 11:30 AM EDT Office Visit Otolaryngology [facility] [address] [place] [address] Dennise Guerra PA-C [address] [place] [address] Health Maintenance Due Date Last Done Comments [...] Additional history exists CKD PHOS USE SMARTSET 34060 04/09/202503/20, 03/23/2024, 02/26/2023, Additional history exists CKD HGB USE SMARTSET 29847 04/11/202504/11, 04/09/2024, 03/23/2024, Additional history exists Cologuard [...] this encounter Medical Devices Implanted Type Area Air Pumper Device Identifier Shelf Expiration Date Model / Serial / Lot Screw Implanted:Qty : 4 on 12/24/2021 by Jules Sanchez MD at OR [facility] Screw N/A: Spine Lumbar [employer] 04.639.645 / / Lens Intraoc 20.0 - [id number] - [id number] Implanted:Qty : 1 on 06/26/2021 by Madhu Romero MD at OR [facility] Left: Eye BAUSCH & LOMB 03/18/2026 [id number] / [id number] / [id number] Lens Intraoc 19.5 - [id number] - [id number] Implanted:Qty : 1 on 07/29/2021 by Madhu Romero MD at OR [facility] Right: Eye BAUSCH & LOMB 02/15/2026 [id number] / [id number] / [id number] Graft Bone Dbm Matrix 2.5x5cm - [id number] - [id number] Implanted:Qty : 1 on 12/24/2021 by Jules Sanchez MD at OR [facility] N/A: Spine Lumbar [employer] [id number] 06/09/2024 [id number] / [id number] / LOT NA Vitoss Bimodal Foam Pack 2.5cc - [id number] - [id number] Implanted:Qty : 1 on 12/24/2021 by Jules Sanchez MD at OR [facility] N/A: Spine Lumbar JESUS : SPINE [id number] 10/13/2022 / [id number] / [id number] Vitoss Bimodal Foam Pack 2.5cc - [id number] - [id number] Implanted:Qty : 1 on 12/24/2021 by Jules Sanchez MD at OR [facility] N/A: Spine Lumbar JESUS : SPINE [id number] 10/13/2022 / [id number] / [id number] Head Poly Top Load Matrix - [id number] Implanted:Qty : 4 on 12/24/2021 by Jules Sanchez MD at OR [facility] N/A: Spine Lumbar SYNTHES : DEPUY 632.001 / / Cap Locking W/O Saddle Matrix - [id number] Implanted:Qty : 4 on 12/24/2021 by Jules Sanchez MD at OR [facility] N/A: Spine Lumbar SYNTHES : DEPUY 632.099 / / Graft Bone Infuse Kit Xsmall - [id number] - [id number] Implanted:Qty : 1 on 12/24/2021 by Jules Sanchez MD at OR [facility] N/A: Spine Lumbar [employer] : NEUROLOGIC PAIN [id number] 10/16/2022 [id number] / [id number] / [id number] Sandoval Implanted:Qty : 2 on 12/24/2021 by Jules Sanchez MD at OR [facility] N/A: Spine Lumbar [employer] 636.035 / / Cage Implanted:Qty : 1 on 12/24/2021 by Jules Sanchez MD at OR [facility] N/A: Spine Lumbar [employer] [id number] / / documented as of this encounter Visit Diagnoses Diagnosis Gall bladder disease- Primary Unspecified disorder of gallbladder HTN, goal below 140/90 Unspecified essential hypertension S/P laparoscopic cholecystectomy Other postprocedural status Hospital discharge follow-up Other follow-up examination Acquired hypothyroidism Unspecified hypothyroidism Essential hypertension with goal blood pressure less than 140/90 Meniere's disease, unspecified laterality documented in this encounter Advance Directives * [...] Directives occurred with: Not Discussed Care Teams Counseling Department Chair Relationship Specialty Start Date End Date Becky Vivian JIMI Rueda [address] [place] [address] PCP - General Physician Sewer System Supervisor 01/28/24 documented as of this encounter"
--- OUTSIDE RECORDS SUMMARY | 2024-09-13 09:56 | External Medical Summary ---
Author Name Unknown Address Unknown Organization K1F:[facility] - [address] [place] [address] Laboratory Report Ordering Provider Test Date Status MICHELINEBHARATHI 04/11/2024 06:40:00 Final Observation Date Value Abnormality Reference (Units ) Status Albumin 04/11/2024 06:40:00 3.5 Below low normal 3.8-5.0 (g/dL) Final AST (Aspartate aminotransferase) 04/11/2024 06:40:00 117 Above high normal 10-35 (U/L) Final Alk Phos 04/11/2024 06:40:00 175 Above high normal 35-130 (U/L) Final ALT (Alanine aminotransferase) 04/11/2024 06:40:00 126 Above high normal 10-35 (U/L) Final Bilirubin, Total 04/11/2024 06:40:00 0.5 <=1.2 (mg/dL) Final Bilirubin, Direct 04/11/2024 06:40:00 <0.2 0.0-0.3 (mg/dL) Final Protein 04/11/2024 06:40:00 6.2 6.0-8.3 (g/dL) Final Performing Location [facility] - [address] [place] [address]
--- OUTSIDE RECORDS SUMMARY | 2024-09-13 09:56 | External Medical Summary | Summary of Care ---
Author Name Unknown Organization [facility] Address [address] [place] [address] Phone [phone] Care Team Providers Care Contract Attorney Name Role Phone Becky Vivian Rueda PA-C Primary Care Provider [phone] Encounter Details Date Type Department Care Team (Latest Contact Info) Description 04/08/2024 1:25 PM EDT - 04/08/2024 11:59 PM EDT Hospital Encounter Radiology Film File [address] [place] [address] Discharge Disposition: Home - Self Care Allergies Active Allergy Reactions Criticality Noted Date Comments Cephalexin 10/07/2005 Nausea and vomitting Fluconazole 05/02/2010 Nauseated Erythromycin 04/20/2000 nausea Nitrofuran Derivatives 04/20/2000 nausea Penicillins 04/20/2000 in childhood Sulfa Antibiotics 04/20/2000 in childhood documented as of this encounter (statuses as of 04/14/2024) Medications Medication Sig Dispensed Refills Start Date [...] as of this encounter (statuses as of 04/14/2024) Active Problems Problem Noted Date Diagnosed Date [...] as of this encounter (statuses as of 04/14/2024) Resolved Problems Problem Noted Date Diagnosed Date [...] as of this encounter (statuses as of 04/14/2024) Immunizations Name Administration Dates Next Due COVID-19 [...] 12:00 PM EDT Office Visit Family Practice [facility] [address] [facility] [place] [address] Vivian Pena PA-C [address] [facility] [place] [address] 05/01/2024 3:30 PM EDT Office Visit General Surgery Fany Alcantara [address] [place] [address] Alan Torres MD [address] [place] [address] 05/02/2024 2:15 PM EDT Office Visit Orthopaedics Spine Surgery, Fany Verduzco [address] [place] [address] Jules Sanchez MD [address] [place] [address] 08/15/2024 11:00 AM EST Office Visit Cardiology, [facility] [address] [place] [address] Conchis Urrutia PA-C [address] [place] [address] 09/27/2024 11:30 AM EDT Office Visit Otolaryngology [facility] [address] [place] [address] Dennise Guerra PA-C [address] [place] [address] Health Maintenance Due Date Last Done Comments [...] Additional history exists CKD PHOS USE SMARTSET 20158 04/09/202503/20, 03/23/2024, 02/26/2023, Additional history exists CKD HGB USE SMARTSET 43156 04/11/202504/11, 04/09/2024, 03/23/2024, Additional history exists Cologuard [...] this encounter Medical Devices Implanted Type Area Medical Photographer Device Identifier Shelf Expiration Date Model / Serial / Lot Screw Implanted:Qty : 4 on 12/24/2021 by Jules Sanchez MD at OR [facility] Screw N/A: Spine Lumbar [employer] 04.639.645 / / Lens Intraoc 20.0 - [id number] - [id number] Implanted:Qty : 1 on 06/26/2021 by Madhu Romero MD at OR [facility] Left: Eye BAUSCH & LOMB 03/18/2026 [id number] / [id number] / [id number] Lens Intraoc 19.5 - [id number] - [id number] Implanted:Qty : 1 on 07/29/2021 by Madhu Romero MD at OR [facility] Right: Eye BAUSCH & LOMB 02/15/2026 [id number] / [id number] / [id number] Graft Bone Dbm Matrix 2.5x5cm - [id number] - [id number] Implanted:Qty : 1 on 12/24/2021 by Jules Sanchez MD at OR [facility] N/A: Spine Lumbar [employer] [id number] 06/09/2024 [id number] / [id number] / LOT NA Vitoss Bimodal Foam Pack 2.5cc - [id number] - [id number] Implanted:Qty : 1 on 12/24/2021 by Jules Sanchez MD at OR [facility] N/A: Spine Lumbar JESUS : SPINE [id number] 10/13/2022 6838-3394 / [id number] / [id number] Vitoss Bimodal Foam Pack 2.5cc - [id number] - [id number] Implanted:Qty : 1 on 12/24/2021 by Jules Sanchez MD at OR [facility] N/A: Spine Lumbar JESUS : SPINE [id number] 10/13/2022 [id number] / [id number] / [id number] Head Poly Top Load Matrix - [id number] Implanted:Qty : 4 on 12/24/2021 by Jules Sanchez MD at OR [facility] N/A: Spine Lumbar SYNTHES : DEPUY 001 / / Cap Locking W/O Saddle Matrix - [id number] Implanted:Qty : 4 on 12/24/2021 by Jules Sanchez MD at OR [facility] N/A: Spine Lumbar SYNTHES : DEPUY 9 / / Graft Bone Infuse Kit Xsmall - [id number] - [id number] Implanted:Qty : 1 on 12/24/2021 by Jules Sanchez MD at OR [facility] N/A: Spine Lumbar [employer] : NEUROLOGIC PAIN [id number] 10/16/2022 [id number] / [id number] / [id number] Sandoval Implanted:Qty : 2 on 12/24/2021 by Jules Sanchez MD at OR [facility] N/A: Spine Lumbar [employer] INC [id number] / / Cage Implanted:Qty : 1 on 12/24/2021 by Jules Sacnhez MD at OR [facility] N/A: Spine Lumbar [employer] [id number] / / documented as of this encounter [...] interpreted or resulted by a [facility] or [facility]. comer contracted radiologist. Alonso Galindo MD RAD CT [...] Directives occurred with: Not Discussed Care Teams Contract Attorney Relationship Specialty Start Date End Date Becky October JIMI Rueda [address] [facility] [place] [address] PCP - General Physician Community Liaison 01/28/24 documented as of this encounter
--- OUTSIDE RECORDS SUMMARY | 2024-09-13 09:56 | External Medical Summary ---
Author Name Unknown Address Unknown Organization K1F:[facility] - [address] [place] [address] Laboratory Report Ordering Provider Test Date Status BHARATHI TOBIAS 04/11/2024 06:40:00 Final Warfarin Therapy
INR: 2 .0-3.0 conventional anticoagulation
INR: 2.5- 3.5 high intensity anticoagulation Observation Date Value Abnormality Reference (Units ) Status PT 04/11/2024 06:40:00 14.8 11.6-15.2 (seconds) Final INR 04/11/2024 06:40:00 1.2 0.8-1.2 Final Performing Location [facility] - [address] [place] [address]
--- OUTSIDE RECORDS SUMMARY | 2024-09-13 09:57 | External Medical Summary | Summary of Care ---
Author Name Unknown Organization [facility] Address [address] [facility] [place] [address] Phone [phone] Care Team Providers Care Him Director Name Role Phone MarciVivian benson Mohit KRAUSE Primary Care Provider [phone] Reason for Visit * Reason Comments Follow Up Encounter Details Date Type Department Care Team (Late st Contact Info) Description 03/28/2024 11:00 AM EDT Office Visit Otolaryngology [facility] [address] [place] [address] Dennise Guerra PA-C [address] [place] [address] Meniere's disease of left ear* Allergies Active Allergy Reactions Criticality Noted Date Comments Cephalexin 10/07/2005 Nausea and vomitting Fluconazole 05/02/2010 Nauseated Erythromycin 04/20/2000 nausea Nitrofuran Derivatives 04/20/2000 nausea Penicillins 04/20/2000 in childhood Sulfa Antibiotics 04/20/2000 in childhood documented as of this encounter (statuses as of 03/28/2024) Medications Medication Sig Dispensed Refills Start Date [...] Muscle spasms. 90 Tablet 1 01/17/2024 Active Lisinopril 10 MG Oral Tablet (Prinivil)Indication s:Essential hypertension with goal blood pressure less than 140/90 TAKE ONE TABLET BY MOUTH EVERY DAY 90 Tablet 3 01/24/2024 Active Benzonatate 100 MG Oral Capsule (Tessalon Perles)Indications:A cute cough Take 1 Capsule by mouth 3 times a day as needed for Cough. Do not cut, crush, or chew. 30 Capsule 02/04/2024 Active Levothyroxine Sodium 75 MCG Oral Tablet (Levoxyl)Indications :Acquired hypothyroidism TAKE ONE-HALF TABLET BY MOUTH EVERY DAY ON AN EMPTY STOMACH 45 Tablet 03/16/2024 Active documented as of this encounter (statuses as of 03/28/2024) Active Problems Problem Noted Date Diagnosed Date Hypertensive kidney disease with stage 3a chronic kidney disease 02/09/2023 Dyslipidemia, goal LDL below 100 04/30/2022 SVT (supraventricular tachycardia) 04/30/2022 S/P lumbar laminectomy 12/24/2021 Dyslipidemia 11/12/2020 Stage 3a chronic kidney disease (CKD) 03/16/2018 Overview: Per CKD protocol HTN, goal below 140/90 03/16/2017 Cervical spine degeneration 12/11/2011 Acquired hypothyroidism 2003 Meniere's disease documented as of this encounter (statuses as of 03/28/2024) Resolved Problems Problem Noted Date Diagnosed Date [...] as of this encounter (statuses as of 03/28/2024) Immunizations Name Administration Dates Next Due COVID-19 mRNA, LNP-s, No Pre serve, 2-Dose Series (LendFriend) 09/14/2020 Pneumococcal Conjugate Vacc, 13 Valent (Prevnar) [...] money to get more. Never true 06/15/2022 Sex and Gender Information Value Date Recorded [...] Pressure - - Pulse - - Temperature 37.1 C (98.7 F) 03/28/2024 1 0:43 AM EDT Respiratory Rate - - Oxygen Saturation - - Inhaled Oxygen Concentration - - Weight 67.9 kg (149 lb 12.8 oz) 024 10:43 AM EDT Height 157.5 cm (5' 2.01") 03/28/2024 1 0:43 AM EDT Body Mass Index 27.39 03/28/2024 10:43 AM EDT documented in this encounter Functional [...] No 12/24/2021 documented as of this encounter Progress Notes * Dennise Guerra PA-C - 03/28/2024 11:00 AM EDT SUBJECTIVE: Gabby Velásquez is a 68 year old female. Chief Complaint Patient presents with Follow Up Nursing Notes: Virginia Mcintosh LPN 03/28/24 1046 Signed Pt presents today for a 1 yr check of her ears. Pt reports she is doing well, she denies having pain, or drainage. HPI: Patient presents for routine 6 month appt. She is doing well with no recent dizziness, aural symptoms or changes/flucations in hearing. Patient Active Problem List Diagnosis Acquired hypothyroidism Meniere's disease Cervical spine degeneration HTN, goal below 140/90 Stage 3a chronic kidney disease (CKD) (HCC) Dyslipidemia S/P lumbar laminectomy Dyslipidemia, goal LDL below 100 SVT (supraventricular tachycardia) (HCC) Hypertensive kidney disease with stage 3a chronic kidney disease (HCC) Current Outpatient Medications Medication Sig Dispense Refill Estrogens Conjugated 0.45 MG Oral Tablet (Premarin) Take 1 tablet by mouth every other day. 45 Tablet 3 Nortriptyline HCl 25 MG Oral Capsule (Pamelor) Take 2 Capsules by mouth daily. 180 Capsule 1 Premarin 0.625 MG/GM Vaginal Cream (Estrogens Conjugated) APPLY 1/2 APPLICATOR AT BEDTIME 2-3 TIMESA WEEK. 90 g 0 Vitamin D3 25 MCG (1000 UT) Oral Capsule (Cholecalciferol) Take 1 Capsule by mouth in the morning. (Patient not taking: Reported on 02/04/2024) tiZANidine HCl 4 MG Oral Tablet Take 0.5 Tablets by mouth every 8 hours as needed for Muscle spasms. 90 Tablet 1 Lisinopril 10 MG Oral Tablet (Prinivil) TAKE ONE TABLET BY MOUTH EVERY DAY 90 Tablet 3 Benzonatate 100 MG Oral Capsule (Tessalon Perles) Take 1 Capsule by mouth 3 times a day as needed for Cough. Do not cut, crush, or chew. 30 Capsule 0 Levothyroxine Sodium 75 MCG Oral Tablet (Levoxyl) TAKE ONE-HALF TABLET BY MOUTH EVERY DAY ON AN EMPTY STOMACH 45 Tablet 0 No current facility-administered medications for this visit. Review of patient's allergies indicates: Allergen Reactions Cephalexin Nausea and vomitting Diflucan [Fluconazole] Nauseated Erythromycin nausea Nitrofuran Derivatives nausea Penicillins in childhood Sulfa Antibiotics in childhood REVIEW OF SYSTEMS Negative for constitutional, heart, lung, liver, kidney, digestive, hematologic, neurologic, rheumatologic, or endocrine complaints except as per history of present illness and past medical history. OBJECTIVE: Temp 37.1 C (98.7 F) (Tympanic) | Ht 1.575 m (5' 2.01") | Wt 67.9 kg (149 lb 12.8 oz) | BMI 27.39 kg/m | BSA 1.72 m PHYSICAL EXAM: General: alert, healthy and no distress Ears: Examination of the ears revealed that the auricles were normally formed with no lesions. The external auditory canals were cleaned of impacted cerumen with forceps atraumatically. The tympanic membranes were intact and freely mobile to pneumatoscopy without perforation or significant retraction pockets. In order to better examine the ears the patient was brought to the microscope room where her ears were examined under the operating microscope with the above physical findings. ASSESSMENT/PLAN: Encounter Diagnoses Name Primary? Meniere's disease of left ear Yes Plan: Cerumen removed. Symptoms stable. She will return in 6 months. Dennise Guerra PA-C 03/28/2024 9:42 AM documented in this encounter Nursing Notes * Virginia Mcintosh LPN - 03/28/2024 10:44 AM EDT Pt presents today for a 1 yr check of her ears. Pt reports she is doing well, she denies having pain, or drainage. documented in this encounter Plan of Treatment Upcoming Encounters Date Type Department Care Team (Late st Contact Info) Description 03/29/2024 4:40 PM EDT Office Visit [facility] [address] [facility] [place] [address] Vivian Pena PA-C [address] [facility] [place] [address] 04/13/2024 9:00 AM EDT Office Visit Cardiology, [facility] [address] [place] [address] Conchis Urrutia PA-C [address] [place] [address] 05/02/2024 2:15 PM EDT Office Visit Orthopaedics Spine Surgery, Fany Verduzco [address] [place] [address] Jules Sanchez MD [address] [place] [address] 09/27/2024 11:30 AM EDT Office Visit Otolaryngology [facility] [address] [place] [address] Dennise Guerra PA-C [address] [place] [address] Health Maintenance Due Date Last Done Comments Fecal Occult Blood Test 1998 Sigmoidoscopy 1998 Colonoscopy 08/12/2014 08/12/2004 Zoster Vaccines (3 of 3) 11/05/2021 09/10/2021, 01/2014 Adult Wellness Visit 06/15/2023 06/15/2022 DTap/Tdap Vaccines (2 - Td or Tdap) 07/28/2023 07/28/2013, 05/19/2004, 02/12/1994 COVID-19 Vaccine (2 - 2022- season) 2024 09/14/2020 Influenza Vaccine (FLU shot) (#1) 2024 04/27/2023, 04/15/2022, 04/15/2021, Additional history exists GFR 09/20/2024 03/23/2024, 02/16, 12/09/2022, Additional history exists Mammogram 12/29/2024 12/30/2023, 12/17, 12/28/2022, Additional history exists Depression Screening 01/30/2025 01/31/2024 Albumin/Creatinine Ratio 03/23/2025 024, 02/26/2023, 06/15/2022, Additional history exists CKD HGB USE SMARTSET 64791 03/23/202503/23, 02/26/2023, 12/09/2022, Additional history exists CKD PHOS USE SMARTSET 80629 03/23/2025 09/0 11/2023, 02/26/2023, 10/20/2021, Additional history exists TSH 03/23/2025 03/23/2024, 11/17, 12/17/2021, Additional history exists Cologuard 01/10/2026 01/10/2023, 12/17, [...] this encounter Medical Devices Implanted Type Area House Mover Supervisor Device Identifier Shelf Expiration Date Model / Serial / Lot Screw Implanted:Qty : 4 on 12/24/2021 by Jules Sanchez MD at OR [facility] Screw N/A: Spine Lumbar [employer] [id number] / / Lens Intraoc 20.0 - [id number] - [id number] Implanted:Qty : 1 on 06/26/2021 by Madhu Romero MD at OR [facility] Left: Eye BAUSCH & LOMB 03/18/2026 [id number] / [id number] / [id number] Lens Intraoc 19.5 - [id number] - [id number] Implanted:Qty : 1 on 07/29/2021 by Madhu Romero MD at OR [facility] Right: Eye BAUSCH & LOMB 02/15/2026 [id number] / [id number] / [id number] Graft Bone Dbm Matrix 2.5x5cm - [id number] - [id number] Implanted:Qty : 1 on 12/24/2021 by Jules Sanchez MD at OR [facility] N/A: Spine Lumbar [employer] [id number] 06/09/2024 [id number] / [id number] / [id number] NA Vitoss Bimodal Foam Pack 2.5cc - [id number] - [id number] Implanted:Qty : 1 on 12/24/2021 by Jules Sanchez MD at OR [facility] N/A: Spine Lumbar JESUS : SPINE [id number] 10/13/2022 / [id number] / [id number] Vitoss Bimodal Foam Pack 2.5cc - [id number] - [id number] Implanted:Qty : 1 on 12/24/2021 by Jules Sanchez MD at OR [facility] N/A: Spine Lumbar JESUS : SPINE [id number] 10/13/2022 / [id number] / [id number] Head Poly Top Load Matrix - [id number] Implanted:Qty : 4 on 12/24/2021 by Jules Sanchez MD at OR [facility] N/A: Spine Lumbar SYNTHES : DEPUY 632.001 / / Cap Locking W/O Saddle Matrix - [id number] Implanted:Qty : 4 on 12/24/2021 by Jules Sanchez MD at OR [facility] N/A: Spine Lumbar SYNTHES : DEPUY 632.099 / / Graft Bone Infuse Kit Xsmall - [id number] - [id number] Implanted:Qty : 1 on 12/24/2021 by Jules Sanchez MD at OR [facility] N/A: Spine Lumbar MEDTRONIC : NEUROLOGIC PAIN [id number] 10/16/2022 [id number] / [id number] / [id number] Sandoval Implanted:Qty : 2 on 12/24/2021 by Jules Sanchez MD at OR [facility] N/A: Spine Lumbar DEPUY SPINE INC 636.035 / / Cage Implanted:Qty : 1 on 12/24/2021 by Jules Sanchez MD at OR [facility] N/A: Spine Lumbar [employer] SP[employer] [id number] / / documented as of this encounter Visit Diagnoses Diagnosis Meniere's disease of left ear- Primary Meniere's disease, unspecified documented in this encounter Advance Directives * Full Code (Latest Code Status on File) Date Activated Date Inactivated Comments 12/24/2021 1:42 [...] Directives occurred with: Not Discussed Care Teams Him Director Relationship Specialty Start Date End Date BeckyOctober JIMI Rueda [address] [place] [address] PCP - General Physician Programmer Analyst 01/28/24 documented as of this encounter
--- OUTSIDE RECORDS SUMMARY | 2024-09-13 09:57 | External Medical Summary ---
Author Name Unknown Address Unknown Organization K1F:LABORATORY [facility] - [facility] [address] [place] [address] Laboratory Report Ordering Provider Test Date Status NEGAR VALDEZ 04/09/2024 11:07:00 Final Observation Date Value Abnormality Reference (Units ) Status WBC, Total 04/09/2024 11:07:00 7.54 4.00-10.80 (K/uL) Final RBC 04/09/2024 11:07:00 3.97 3.85-5.15 (M/uL) Final Hemoglobin 04/09/2024 11:07:00 12.1 12.0-15.3 (g/dL) Final HCT 04/09/2024 11:07:00 35.7 Below low normal 36.0-45.2 (%) Final MCV 04/09/2024 11:07:00 89.9 81.5-97.5 (fL) Final MCH 04/09/2024 11:07:00 30.5 27.0-34.0 (pg) Final MCHC 04/09/2024 11:07:00 33.9 32.0-36.0 (g/dL) Final RDW 04/09/2024 11:07:00 13.2 11.5-15.5 (%) Final Platelets 04/09/2024 11:07:00 249 140-400 (K/uL) Final MPV 04/09/2024 11:07:00 9.7 6.6-11.1 (fL) Final Nucleated erythrocytes/100 leukocytes [Ratio] in Blood by Automated count 04/09/2024 11:07:00 0 <=0 (/100 WBCs) Final Performing Location LABORATORY [facility] - [address] [place] [address]
--- OUTSIDE RECORDS SUMMARY | 2024-09-13 09:57 | External Medical Summary ---
Author Name Unknown Address Unknown Organization K1F:LABORATORY [facility] - [address] [place] [address] Laboratory Report Ordering Provider Test Date Status NEGAR VALDEZ 04/09/2024 11:07:00 Final Observation Date Value Abnormality Reference (Units ) Status Lipase 04/09/2024 11:07:00 62 Above high normal 13 -60 (U/L) Final Performing Location LABORATORY [facility] - [address] [place] [address]
--- OUTSIDE RECORDS SUMMARY | 2024-09-13 09:57 | External Medical Summary ---
Author Name Unknown Address Unknown Organization K1F:LABORATORY [facility] - [address] [place] [address] Laboratory Report Ordering Provider Test Date Status CARLITOS VALDEZDEVAN 04/09/2024 11:07:00 Final Observation Date Value Abnormality Reference (Units ) Status Magnesium 04/09/2024 11:07:00 1.9 1.5-2.6 (m g/dL) Final Performing Location LABORATORY [facility] - [address] [place] [address]
--- OUTSIDE RECORDS SUMMARY | 2024-09-13 09:57 | External Medical Summary ---
Author Name Unknown Address Unknown Organization K1F:LAB[facility]ORY [facility] [address] [facility] [address] [place] [address] Laboratory Report Ordering Provider Test Date Status NEGAR VALDEZ 04/09/2024 11:07:00 Final Observation Date Value Abnormality Reference (Units ) Status BUN 04/09/2024 11:07:00 21 Above high normal 6-20 (mg/dL) Final Creatinine 04/09/2024 11:07:00 1.1 Above high normal 0.5-1.0 (mg/dL) Final Glomerular filtration rate/1.73 sq M.predicted [Volume Rate/Area] in Serum, Plasma or Blood by Creatinine-based formula (CKD-EPI) 04/09/2024 11:07:00 52 Below low normal >=60 (mL/min) Final eGFR is calculated based on the CKD-EPI 2020 equation. Sodium 04/09/2024 11:07:00 139 135-146 (m mol/L) Final Potassium 04/09/2024 11:07:00 4.5 3.5-5.1 (m mol/L) Final Cl 04/09/2024 11:07:00 106 98-107 (mm ol/L) Final CO2 04/09/2024 11:07:00 21 Below low normal 22- 32 (mmol/L) Final Anion gap 04/09/2024 11:07:00 12 7-15 (mmol /L) Final Glucose 04/09/2024 11:07:00 87 70-120 (mg /dL) Final Albumin 04/09/2024 11:07:00 3.6 Below low normal 3.8 -5.0 (g/dL) Final AST (Aspartate aminotransferase) 04/09/2024 11:07:00 230 Above high normal 10-35 (U/L) Final Alk Phos 04/09/2024 11:07:00 190 Above high normal 35 -130 (U/L) Final Bilirubin, Total 04/09/2024 11:07:00 0.7 <=1 .2 (mg/dL) Final Calcium 04/09/2024 11:07:00 8.6 8.4-10.2 ( mg/dL) Final Protein 04/09/2024 11:07:00 6.4 6.0-8.3 (g /dL) Final ALT (Alanine aminotransferase) 04/09/2024 11:07:00 204 Above high normal 10-35 (U/L) Final Performing Location LABORATORY [facility] - [facility] [address] [place] [address]
--- OUTSIDE RECORDS SUMMARY | 2024-09-13 09:57 | External Medical Summary ---
Author Name Unknown Address Unknown Organization K1F:LABORATORY [facility] - [place] [address] Laboratory Report Ordering Provider Test Date Status NEGAR VALDEZ 04/09/2024 11:07:00 Final Warfarin Therapy
INR: 2 .0-3.0 conventional anticoagulation
INR: 2.5- 3.5 high intensity anticoagulation Observation Date Value Abnormality Reference (Units ) Status PT 04/09/2024 11:07:00 13.9 11.6-15.2 (seconds) Final INR 04/09/2024 11:07:00 1.1 0.8-1.2 Final Performing Location LABORATORY [facility] - [address] [place] [address]
--- OUTSIDE RECORDS SUMMARY | 2024-09-13 09:57 | External Medical Summary | Summary of Care ---
Author Name Unknown Organization [facility] Address [address] [facility] [place] [address] Phone [phone] Care Team Providers Care Final Cigar And Box Examiner Name Role Phone MarciVivian benson Mohit KRAUSE Primary Care Provider [phone] Reason for Visit * Reason Comments Outpatient Testing Encounter Details Date Type Department Care Team (Late st Contact Info) Description 03/23/2024 10:00 AM EDT Laboratory Laboratory, [facility] [address] [facility] [place] [address] [facility] [address] [facility] [place] [address] Chronic kidney disease, unspecified CKD stage; Screening for thyroid disorder Allergies Active Allergy Reactions Criticality Noted Date Comments Cephalexin 10/07/2005 Nausea and vomitting Fluconazole 05/02/2010 Nauseated Erythromycin 04/20/2000 nausea Nitrofuran Derivatives 04/20/2000 nausea Penicillins 04/20/2000 in childhood Sulfa Antibiotics 04/20/2000 in childhood documented as of this encounter (statuses as of 03/23/2024) Medications Medication Sig Dispensed Refills Start Date [...] as of this encounter (statuses as of 03/23/2024) Active Problems Problem Noted Date Diagnosed Date [...] as of this encounter (statuses as of 03/23/2024) Resolved Problems Problem Noted Date Diagnosed Date [...] as of this encounter (statuses as of 03/23/2024) Immunizations Name Administration Dates Next Due COVID-19 mRNA, LNP-s, No Pre serve, 2-Dose Series (WeDuc) 09/14/2020 PPD 04/18/1995 Pneumococcal Conjugate Vacc, 13 Valent (Prevnar) 06/24/2018 [...] t, Adjuvanted, 65+ YRS, PF, (Fluad) 03/29/2019 TD - Tetanus/Diptheria (ADULT) 05/19/2004,1993 TDAP (age 10 and older)(Boostrix) 07/28/2013 Varicella [...] shopping? (15 years old or older) No 06/08/20 22 Cognitive Status Response Date of Assessm ent Because of a physical, menta l, or emotional condition, do you have serious difficulty concentrating, remembering, or making decisions? (5 years old or older) No 12/24/2021 documented as of this encounter Plan of Treatment Upcoming Encounters Date Type Department Care Team (Late st Contact Info) Description 03/28/2024 11:00 AM EDT Office Visit Otolaryngology [facility] [address] [place] [address] Dennise Guerra PA-C [address] [place] [address] 03/29/2024 4:40 PM EDT Office Visit Family Practice [facility] [address] [facility] [place] [address] Vivian Pena PA-C [address] [facility] [place] [address] 04/13/2024 9:00 AM EDT Office Visit Cardiology, [facility] [address] [place] [address] Conchis Urrutia PA-C [address] [place] [address] 05/02/2024 2:15 PM EDT Office Visit Orthopaedics Spine Surgery, Fany Verduzco [address] [place] [address] Jules Sanchez MD [address] [place] [address] Pending Results Name Type Priority Associated Diagnoses Date /Time COMPREHENSIVE METABOLIC PANEL Lab Routine Chronic kidney disease, unspecified CKD stage 03/23/2024 9:53 AM EDT PHOSPHORUS Lab Routine Chronic kidney disease, unspecified CKD stage 03/23/2024 9:53 AM EDT TSH WITH FREE T4 IF INDICATED Lab Routine Screening for thyroid disorder 03/23/2024 9:53 AM EDT ALBUMIN / CREATININE RATIO, URINE Lab Routine Chronic kidney disease, unspecified CKD stage 03/23/2024 10:12 AM EDT Health Maintenance Due Date Last Done Comments Fecal Occult Blood Test 1998 Sigmoidoscopy 1998 Colonoscopy 08/12/2014 08/12/2004 Zoster Vaccines (3 of 3) 11/05/2021 09/10/2021, 01/2014 Adult Wellness Visit 06/15/2023 06/15/2022 DTap/Tdap Vaccines (2 - Td or Tdap) 07/28/2023 07/28/2013, 05/19/2004, 02/12/1994 GFR 08/29/2023 02/26/2023, 11/17, 02/12/2022, Additional history exists TSH 12/10/2023 12/09/2022, 07/2021, 04/15/2021, Additional history exists Albumin/Creatinine Ratio 02/27/2024 023, 06/15/2022, 09/10/2020, Additional history exists CKD PHOS USE SMARTSET 27250 02/27/202402/16, 10/20/2021, 10/15/2020, Additional history exists COVID-19 Vaccine ( season) 2024 09/14/2020 Influenza Vaccine (FLU shot) (#1) 2024 04/27/2023, 04/15/2022, 04/15/2021, Additional history exists Mammogram 12/29/2024 12/30/2023, 12/17, 12/28/2022, Additional history exists Depression Screening 01/30/2025 01/31/2024 CKD HGB USE SMARTSET 38586 03/23/202503/23, 02/26/2023, 12/09/2022, Additional history exists Cologuard 01/10/2026 01/10/2023, 12/17, [...] this encounter Medical Devices Implanted Type Area Biological Sciences Instructor Device Identifier Shelf Expiration Date Model / Serial / Lot Screw Implanted:Qty : 4 on 12/24/2021 by Jules Sanchez MD at OR [facility] Screw N/A: Spine Lumbar [employer] SP[employer] INC 04.639.645 / / Lens Intraoc 20.0 - [id number] - [id number] Implanted:Qty : 1 on 06/26/2021 by Madhu Romero MD at OR [facility] Left: Eye BAUSCH & LOMB 03/18/2026 [id number] / [id number] / [id number] Lens Intraoc 19.5 - [id number] - [id number] Implanted:Qty : 1 on 07/29/2021 by Madhu Romero MD at OR [facility] Right: Eye BAUSCH & LOMB 02/15/2026 [id number] / [id number] / [id number] Graft Bone Dbm Matrix 2.5x5cm - [id number] - [id number] Implanted:Qty : 1 on 12/24/2021 by Jules Sanchez MD at OR [facility] N/A: Spine Lumbar [employer] [id number] 06/09/2024 [id number] / [id number] / LOT NA Vitoss Bimodal Foam Pack 2.5cc - [id number] - [id number] Implanted:Qty : 1 on 12/24/2021 by Jules Sanchez MD at OR [facility] N/A: Spine Lumbar JESUS : SPINE [id number] 10/13/2022 / [id number] / [id number] Vitoss Bimodal Foam Pack 2.5cc - [id number] - [id number] Implanted:Qty : 1 on 12/24/2021 by Jules Sanchez MD at OR [facility] N/A: Spine Lumbar JESUS : SPINE [id number] 10/13/2022 / [id number] / [id number] Head Poly Top Load Matrix - [id number] Implanted:Qty : 4 on 12/24/2021 by Jules Sanchez MD at OR [facility] N/A: Spine Lumbar SYNTHES : DEPUY [id number] / / Cap Locking W/O Saddle Matrix - [id number] Implanted:Qty : 4 on 12/24/2021 by Jules Sanchez MD at OR [facility] N/A: Spine Lumbar SYNTHES : DEPUY 099 / / Graft Bone Infuse Kit Xsmall - [id number] - [id number] Implanted:Qty : 1 on 12/24/2021 by Jules Sanchez MD at OR [facility] N/A: Spine Lumbar MEDTRONIC : NEUROLOGIC PAIN [id number] 10/16/2022 [id number] / [id number] / [id number] Sandoval Implanted:Qty : 2 on 12/24/2021 by Jules Sanchez MD at OR [facility] N/A: Spine Lumbar DEPUY SPINE INC 04636.035 / / Cage Implanted:Qty : 1 on 12/24/2021 by Jules Sanchez MD at OR [facility] N/A: Spine Lumbar DEPUY SPINE INC [id number] / / documented as of this encounter Procedures Procedure Name Priority Date/Time Associated Diagnosis Comments CBC Routine 03/23/2024 9:53 AM EDT Chronic kidney disease, unspecified CKD stage documented in this encounter Results * CBC (03/23/2024 9:53 AM EDT) WBC 8.48 4.00 - 10.80 K/uL 03/23/2024 10:12 AM EDT LABORATORY [place] RBC 4.54 3.85 - 5.15 M/uL 03/23/2024 10:12 AM EDT LABORATORY [place] 57-10 HGB 13.2 12.0 - 15.3 g/dL 03/23/2024 10:12 AM EDT LABORATORY [place] [facility]10 HCT 39.7 36.0 - 45.2 % 03/23/2024 10:12 AM EDT LABORATORY [place] [facility]-10 MCV 87.4 81.5 - 97.5 fL 03/23/2024 10:12 AM EDT LABORATORY [place] [facility]10 MCH 29.1 27.0 - 34.0 pg 03/23/2024 10:12 AM EDT LABORATORY [place] [facility]10 MCHC 33.2 32.0 - 36.0 g/dL 03/23/2024 10:12 AM EDT LABORATORY [place] [facility]10 RDW 13.1 11.5 - 15.5 % 03/23/2024 10:12 AM EDT LABOR[facility]ORY [place] [facility]-10 PLT 273 140 - 400 K/uL 03/23/2024 10:12 AM EDT LAB[facility]ORY [place] [facility]10 MPV 10.0 6.6 - 11.1 fL 03/23/2024 10:12 AM EDT LAB[facility]ATORY [place] [facility]10 Blood Venous blood specimen / Unknown Venipuncture / Unknown 03/23/2024 9:53 AM EDT 03/23/2024 9:53 AM EDT October eBcky KRAUSE LAB BLOOD ORDERABLES LABORATORY [place] 57-10 [address] [facility] [place] [address] documented in this encounter Visit Diagnoses Diagnosis Chronic kidney disease, unspecified CKD stage Screening for thyroid disorder documented in this encounter Advance Directives * [...] Directives occurred with: Not Discussed Care Teams Final Cigar And Box Examiner Relationship Specialty Start Date End Date Becky October JIMI Rueda [address] [place] [address] PCP - General Physician Director Of Product Design 01/28/24 documented as of this encounter
--- OUTSIDE RECORDS SUMMARY | 2024-09-13 09:57 | External Medical Summary ---
Author Name Unknown Address Unknown Organization [id number]:LABORATORY [facility] - [address] [place] [address] Laboratory Report Ordering Provider Test Date Status NEGAR VALDEZ 04/09/2024 11:07:00 Final Less than 0.5 ng/mL: Low ris k for progression to sepsis. Review patients condition for localized infections.

0.5 to 2.0 ng/mL: Intermediate risk for progresion to sepsis. Review underlying conditions. Recommend repeat PCT after 6 hours has elapsed.

Greater than 2.0 ng/mL: high risk for progression to sepsis unless other causes are known. Observation Date Value Abnormality Reference (Units ) Status Procalcitonin [Mass/volume] in Serum or Plasma by Immunoassay 04/09/2024 11:07:00 0.09 <0.10 (ng/mL) Final Performing Location LABORATORY [facility] - [address] [place] [address]
--- OUTSIDE RECORDS SUMMARY | 2024-09-13 09:57 | External Medical Summary | Summary of Care ---
Author Name Unknown Organization [facility] Address [address] [place] [address] Phone [phone] Care Team Providers Care Toilet And Laundry Soap Supervisor Name Role Phone Becky Vivian Rueda PA-C Primary Care Provider [phone] Encounter Details Date Type Department Care Team (Late st Contact Info) Description 04/04/2024 Orders Only Outcomes Research Department [address], [place] [id number] Gloria Corea CHRA MyCode Research Other*[id number] Allergies Active Allergy Reactions Criticality Noted Date Comments Cephalexin 10/07/2005 Nausea and vomitting Fluconazole 05/02/2010 Nauseated Erythromycin 04/20/2000 nausea Nitrofuran Derivatives 04/20/2000 nausea Penicillins 04/20/2000 in childhood Sulfa Antibiotics 04/20/2000 in childhood documented as of this encounter (statuses as of 04/04/2024) Medications Medication Sig Dispensed Refills Start Date [...] as of this encounter (statuses as of 04/04/2024) Active Problems Problem Noted Date Diagnosed Date [...] as of this encounter (statuses as of 04/04/2024) Resolved Problems Problem Noted Date Diagnosed Date [...] as of this encounter (statuses as of 04/04/2024) Immunizations Name Administration Dates Next Due COVID-19 mRNA, LNP-s, No Pre serve, 2-Dose Series (PipelineRx) 09/14/2020 Pneumococcal Conjugate Vacc, 13 Valent (Prevnar) [...] Care Team (Late st Contact Info) Description 04/13/2024 9:00 AM EDT Office Visit [facility], [facility] [address] [facility] [place] [address] Conchis Urrutia PA-C [address] [place] [address] 05/02/2024 2:15 PM EDT Office Visit Orthopaedics Spine Surgery, Jesusita JoséeFany [address] [place] [address] Jules Sanchez MD [address] [place] [address] 09/27/2024 11:30 AM EDT Office Visit Otolaryngology [facility] [address] [place] [address] Dennise Guerra PA-C [address] [place] [address] Scheduled Orders Name Type Priority Associated Diagnoses Orde r Schedule MYCODE SUBSEQUENT ADULT Lab Routine MyCode Research Other*[id number] Every 6 Months for 2 Occurrences starting 04/04/2024 until 04/24/2025 Health Maintenance Due Date Last Done Comments Fecal Occult Blood Test 1998 Sigmoidoscopy 1998 Colonoscopy 08/12/2014 08/12/2004 Zoster Vaccines (3 of 3) 11/05/2021 09/10/2021, 01/2014 Adult Wellness Visit 06/15/2023 06/15/2022 DTap/Tdap Vaccines (2 - Td or Tdap) 07/28/2023 07/28/2013, 05/19/2004, 02/12/1994 COVID-19 Vaccine (2 - season) 2024 09/14/2020 Influenza Vaccine (FLU shot) (#1) 2024 04/27/2023, 04/15/2022, 04/15/2021, Additional history exists GFR 09/20/2024 03/23/2024, 02/16, 12/09/2022, Additional history exists Mammogram 12/29/2024 12/30/2023, 12/17, 12/28/2022, Additional history exists Depression Screening 01/30/2025 01/31/2024 Albumin/Creatinine Ratio 03/23/20252 024, 02/26/2023, 06/15/2022, Additional history exists CKD HGB USE SMARTSET 51978 03/23/202503/23, 02/26/2023, 12/09/2022, Additional history exists CKD PHOS USE SMARTSET 98087 03/23/2025 09/0 11/2023, 02/26/2023, 10/20/2021, Additional history [...] this encounter Medical Devices Implanted Type Area Workers Compensation Legal Secretary Device Identifier Shelf Expiration Date Model / Serial / Lot Screw Implanted:Qty : 4 on 12/24/2021 by Jules Sanchez MD at OR [facility] Screw N/A: Spine Lumbar [employer] 04.639.645 / / Lens Intraoc 20.0 - [id number] - [id number] Implanted:Qty : 1 on 06/26/2021 by Madhu Romero MD at OR [facility] Left: Eye BAUSCH & LOMB 03/18/2026 [id number] / [id number] / [id number] Lens Intraoc 19.5 - [id number] - [id number] Implanted:Qty : 1 on 07/29/2021 by Madhu Romero MD at OR [facility] Right: Eye BAUSCH & LOMB 02/15/2026 [id number] / [id number] / [id number] Graft Bone Dbm Matrix 2.5x5cm - [id number] - [id number] Implanted:Qty : 1 on 12/24/2021 by Jules Sanchez MD at OR [facility] N/A: Spine Lumbar [employer] [id number] 06/09/2024 [id number] / [id number] / LOT NA Vitoss Bimodal Foam Pack 2.5cc - [id number] - [id number] Implanted:Qty : 1 on 12/24/2021 by Jules Sanchez MD at OR [facility] N/A: Spine Lumbar JESUS : SPINE [id number] 10/13/2022 / [id number] / [id number] Vitoss Bimodal Foam Pack 2.5cc - [id number] - [id number] Implanted:Qty : 1 on 12/24/2021 by Jules Sanchez MD at OR [facility] N/A: Spine Lumbar JESUS : SPINE [id number] 10/13/2022 / [id number] / [id number] Head Poly Top Load Matrix - [id number] Implanted:Qty : 4 on 12/24/2021 by Jules Sanchez MD at OR [facility] N/A: Spine Lumbar SYNTHES : DEPUY .001 / / Cap Locking W/O Saddle Matrix - [id number] Implanted:Qty : 4 on 12/24/2021 by Jules Sanchez MD at OR [facility] N/A: Spine Lumbar SYNTHES : DEPUY .099 / / Graft Bone Infuse Kit Xsmall - [id number] - [id number] Implanted:Qty : 1 on 12/24/2021 by Jules Sanchez MD at OR [facility] N/A: Spine Lumbar [employer] : NEUROLOGIC PAIN [id number] 10/16/2022 [id number] / [id number] / [id number] Sandoval Implanted:Qty : 2 on 12/24/2021 by Jules Sanchez MD at OR [facility] N/A: Spine Lumbar [employer] 04.636.035 / / Cage Implanted:Qty : 1 on 12/24/2021 by Jules Sanchez MD at OR [facility] N/A: Spine Lumbar [employer] [id number] / / documented as of this encounter Visit Diagnoses Diagnosis MyCode Research Other*[id number] documented in this encounter Advance Directives * [...] Directives occurred with: Not Discussed Care Teams Toilet And Laundry Soap Supervisor Relationship Specialty Start Date End Date Becky October JIMI Rueda [address] [place] [address] PCP - General Physician Fitness Club Manager 01/28/24 documented as of this encounter
--- OUTSIDE RECORDS SUMMARY | 2024-09-13 09:57 | External Medical Summary | Summary of Care ---
Author Name Unknown Organization [facility] Address [address] [facility] [place] [address] Phone [phone] Care Team Providers Care Electronics Lead Name Role Phone Vivian Pena PA-C Primary Care Provider [phone] Encounter Details Date Type Department Care Team (Late st Contact Info) Description 03/29/2024 4:40 PM EDT Office Visit Family Practice [facility] [address] [place] [address] Vivian Pena PA-C [address] [facility] [place] [address] Well adult exam* Allergies Active Allergy Reactions Criticality Noted Date Comments Cephalexin 10/07/2005 Nausea and vomitting Fluconazole 05/02/2010 Nauseated Erythromycin 04/20/2000 nausea Nitrofuran Derivatives 04/20/2000 nausea Penicillins 04/20/2000 in childhood Sulfa Antibiotics 04/20/2000 in childhood documented as of this encounter (statuses as of 03/29/2024) Medications Medication Sig Dispensed Refills Start Date [...] as of this encounter (statuses as of 03/29/2024) Active Problems Problem Noted Date Diagnosed Date [...] as of this encounter (statuses as of 03/29/2024) Resolved Problems Problem Noted Date Diagnosed Date [...] as of this encounter (statuses as of 03/29/2024) Immunizations Name Administration Dates Next Due COVID-19 [...] Progress Notes * Vivian Pena PA-C - 03/29/2024 6:10 PM EDT Patient left without being seen. Vivian Pena Physician Asphalt Heater Operator - Certified documented in this encounter Plan of Treatment Upcoming Encounters Date Type Department Care Team (Late st Contact Info) Description 04/13/2024 9:00 AM EDT Office Visit Cardiology, [facility] [address] [place] [address] Conchis Urrutia PA-C [address] [place] [address] 05/02/2024 2:15 PM EDT Office Visit Orthopaedics Spine Surgery, Fany Verduzco [address] [place] [address] Jules Sanchez MD [address] [place] [address] 09/27/2024 11:30 AM EDT Office Visit Otolaryngology [facility] [address] [place] [address] Dennise Guerra PA-C [address] [place] [address] Health Maintenance Due Date Last Done Comments [...] Additional history exists CKD HGB USE SMARTSET 69194 03/23/202503/23, 02/26/2023, 12/09/2022, Additional history exists CKD PHOS USE SMARTSET 55865 03/23/2025 09/0 11/2023, 02/26/2023, 10/20/2021, Additional history [...] this encounter Medical Devices Implanted Type Area Compressor Technician Device Identifier Shelf Expiration Date Model / Serial / Lot Screw Implanted:Qty : 4 on 12/24/2021 by Jules Sanchez MD at OR [facility] Screw N/A: Spine Lumbar [employer] 04.639.645 / / Lens Intraoc 20.0 - [id number] - [id number] Implanted:Qty : 1 on 06/26/2021 by Madhu Romero MD at OR [facility] Left: Eye BAUSCH & LOMB 03/18/2026 [id number] / [id number] / [id number] Lens Intraoc 19.5 - [id number] - [id number] Implanted:Qty : 1 on 07/29/2021 by Madhu Romero MD at OR [facility] Right: Eye BAUSCH & LOMB 02/15/2026 [id number] / [id number] / [id number] Graft Bone Dbm Matrix 2.5x5cm - [id number] - [id number] Implanted:Qty : 1 on 12/24/2021 by Jules Sanchez MD at OR [facility] N/A: Spine Lumbar [employer] [id number] 06/09/2024 [id number] / [id number] / LOT NA Vitoss Bimodal Foam Pack 2.5cc - [id number] - [id number] Implanted:Qty : 1 on 12/24/2021 by Jules Sanchez MD at OR [facility] N/A: Spine Lumbar JESUS : SPINE [id number] 10/13/2022 / [id number] / [id number] Vitoss Bimodal Foam Pack 2.5cc - [id number] - [id number] Implanted:Qty : 1 on 12/24/2021 by Jules Sanchez MD at OR [facility] N/A: Spine Lumbar JESUS : SPINE [id number] 10/13/2022 / [id number] / [id number] Head Poly Top Load Matrix - [id number] Implanted:Qty : 4 on 12/24/2021 by Jules Sanchez MD at OR [facility] N/A: Spine Lumbar SYNTHES : DEPUY 04.632.001 / / Cap Locking W/O Saddle Matrix - [id number] Implanted:Qty : 4 on 12/24/2021 by Jules Sanchez MD at OR [facility] N/A: Spine Lumbar SYNTHES : DEPUY 632.099 / / Graft Bone Infuse Kit Xsmall - [id number] - [id number] Implanted:Qty : 1 on 12/24/2021 by Jules Sanchez MD at OR [facility] N/A: Spine Lumbar [employer] : NEUROLOGIC PAIN [id number] 10/16/2022 [id number] / [id number] / [id number] Sandoval Implanted:Qty : 2 on 12/24/2021 by Jules Sanchez MD at OR [facility] N/A: Spine Lumbar [employer] 04.636.035 / / Cage Implanted:Qty : 1 on 12/24/2021 by Jules Sanchez MD at OR [facility] N/A: Spine Lumbar [employer] [id number] / / documented as of this encounter Visit Diagnoses Diagnosis Well adult exam- Primary Routine general medical examination at a health care facility documented in this encounter Advance Directives * [...] Directives occurred with: Not Discussed Care Teams Electronics Lead Relationship Specialty Start Date End Date Becky October JIMI Rueda [facility] [address] [place] [address] PCP - General Physician Asphalt Heater Operator 7/12/24 documented as of this encounter
--- OUTSIDE RECORDS SUMMARY | 2024-09-13 09:58 | External Medical Summary ---
Author Name Unknown Address Unknown Organization K01:LAB[facility]ATORY [facility] - [address] [place] [address] Laboratory Report Ordering Provider Test Date Status 03/23/2024 09:53:36 Final Observation Date Value Abnormality Reference (Units ) Status Phosphate 03/23/2024 09:53:36 3.1 2.5-4.8 (m g/dL) Final Performing Location LABORATORY [facility] - [address] [place] [address]
--- OUTSIDE RECORDS SUMMARY | 2024-09-13 09:58 | External Medical Summary ---
Author Name Unknown Address Unknown Organization K0G:LAB[facility]ATORY [facility] - [address] [place] [address] Laboratory Report Ordering Provider Test Date Status 03/23/2024 09:53:36 Final Observation Date Value Abnormality Reference (Units ) Status WBC, Total 03/23/2024 09:53:36 8.48 4.00-10.8 0 (K/uL) Final RBC 03/23/2024 09:53:36 4.54 3.85-5.15 (M/uL) Final Hemoglobin 03/23/2024 09:53:36 13.2 12.0-15.3 (g/dL) Final HCT 03/23/2024 09:53:36 39.7 36.0-45.2 (%) Final MCV 03/23/2024 09:53:36 87.4 81.5-97.5 (fL) Final MCH 03/23/2024 09:53:36 29.1 27.0-34.0 (pg) Final MCHC 03/23/2024 09:53:36 33.2 32.0-36.0 (g/dL) Final RDW 03/23/2024 09:53:36 13.1 11.5-15.5 (%) Final Platelets 03/23/2024 09:53:36 273 140-400 (K /uL) Final MPV 03/23/2024 09:53:36 10.0 6.6-11.1 ( fL) Final [facility] Location [facility] [address] [place] [address]
--- OUTSIDE RECORDS SUMMARY | 2024-09-13 09:58 | External Medical Summary ---
Author Name Unknown Address Unknown Organization K01:LABORATORY [facility] - [facility] [address] [place] [address] Laboratory Report Ordering Provider Test Date Status 03/23/2024 10:12:25 Final Normal: <30 mg/g creatinine< br/>High: 30-300 mg/g creatinine
Very High: >300 mg/g creatinine
Nephrotic: >2200 mg/g creatinine Observation Date Value Abnormality Reference (Units ) Status Albumin, Urine 03/23/2024 10:12:25 <1.20 (mg/dL) Final Creatinine, Urine 03/23/2024 10:12:25 123 (mg/dL) Final Albumin/Creatinine [Mass Ratio] in Urine 03/23/2024 10:12:25 <10 <30 (mg/g Creat) Final Performing Location LABORATORY [facility] - [address] [place] [place] [address]
--- OUTSIDE RECORDS SUMMARY | 2024-09-13 09:58 | External Medical Summary ---
Author Name Unknown Address Unknown Organization K01:[facility] - [address] [place] [address] Laboratory Report Ordering Provider Test Date Status 03/23/2024 09:53:36 Final Observation Date Value Abnormality Reference (Units ) Status TSH 03/23/2024 09:53:36 2.99 0.27-4.20 (uIU/mL) Final Performing Location [facility] - [address] [place] [address]
--- OUTSIDE RECORDS SUMMARY | 2024-09-13 09:58 | External Medical Summary | Summary of Care ---
Author Name Unknown Organization [facility] Address [address] [facility] [place] [address] Phone [phone] Care Team Providers Care Rail Signal Worker Name Role Phone MarciVivian benson Mohit KRAUSE Primary Care Provider [phone] Reason for Visit * Reason Comments Outpatient Testing Encounter Details Date Type Department Care Team (Late st Contact Info) Description 03/23/2024 10:00 AM EDT Laboratory [facility], [facility] [address] [facility] [place] [address] [facility] [address] [facility] [place] [address] Chronic kidney disease, unspecified CKD stage; Screening [...] mRNA, LNP-s, No Pre serve, 2-Dose Series (GitHub) 09/14/2020 Pneumococcal Conjugate Vacc, 13 Valent (Prevnar) [...] 03/28/2024 11:00 AM EDT Office Visit Otolaryngology [facility] [address] [place] [address] Dennise Guerra PA-C [address] [place] [address] 03/29/2024 4:40 PM EDT Office Visit Family Practice [facility] [address] [facility] [place] [address] Vivian Pena PA-C [address] [facility] [place] [address] 04/13/2024 9:00 AM EDT Office Visit Cardiology, [facility] [address] [place] [address] Conchis Urrutia PA-C [address] [place] [address] 05/02/2024 2:15 PM EDT Office Visit Orthopaedics Spine Surgery, Fany Verduzco [address] [place] [address] Jules Sanchez MD [address] [place] [address] Pending Results Name Type Priority Associated Diagnoses Date /Time COMPREHENSIVE METABOLIC PANEL Lab Routine Chronic kidney disease, unspecified CKD stage 03/23/2024 9:53 AM EDT CBC Lab Routine Chronic kidney disease, unspecified CKD stage 03/23/2024 9:53 AM EDT PHOSPHORUS Lab Routine Chronic kidney disease, unspecified CKD stage 03/23/2024 9:53 AM EDT TSH WITH FREE T4 IF INDICATED Lab Routine Screening for thyroid disorder 03/23/2024 9:53 AM EDT Health Maintenance Due Date Last [...] 023, 06/15/2022, 09/10/2020, Additional history exists CKD HGB USE SMARTSET 06360 02/27/202402/26, 12/09/2022, 12/09/2022, Additional history exists CKD PHOS USE SMARTSET 27935 02/27/202402/16, 10/20/2021, 10/15/2020, Additional history exists COVID-19 Vaccine ( - season) 2024 09/14/2020 Influenza Vaccine (FLU shot) (#1) 2024 04/27/2023, 04/15/2022, 04/15/2021, Additional history exists Mammogram 12/29/2024 12/30/2023, 12/17, 12/28/2022, Additional history exists Depression Screening 01/30/2025 01/31/2024 Cologuard 01/10/2026 01/10/2023, 12/17, 12/30/2022, Additional history [...] this encounter Medical Devices Implanted Type Area Career Specialist Device Identifier Shelf Expiration Date Model / Serial / Lot Screw Implanted:Qty : 4 on 12/24/2021 by Jules Sanchez MD at OR [facility] Screw N/A: Spine Lumbar [employer] 04.639.645 / / Lens Intraoc 20.0 - [id number] - [id number] Implanted:Qty : 1 on 06/26/2021 by Madhu Romero MD at OR [facility] Left: Eye BAUSCH & LOMB 03/18/2026 [id number] / [id number] / [id number] Lens Intraoc 19.5 - [id number] - [id number] Implanted:Qty : 1 on 07/29/2021 by Madhu Romero MD at OR [facility] Right: Eye BAUSCH & LOMB 02/15/2026 [id number] / [id number] / [id number] Graft Bone Dbm Matrix 2.5x5cm - [id number] - [id number] Implanted:Qty : 1 on 12/24/2021 by Jules Sanchez MD at OR [facility] N/A: Spine Lumbar [employer] [id number] 06/09/2024 [id number] / [id number] / LOT NA Vitoss Bimodal Foam Pack 2.5cc - [id number] - [id number] Implanted:Qty : 1 on 12/24/2021 by Jules Sanchez MD at OR [facility] N/A: Spine Lumbar JESUS : SPINE [id number] 10/13/2022 1011-1124 / [id number] / [id number] Vitoss Bimodal Foam Pack 2.5cc - [id number] - [id number] Implanted:Qty : 1 on 12/24/2021 by Jules Sanchez MD at OR [facility] N/A: Spine Lumbar JESUS : SPINE [id number] 10/13/2022 9666-3017 / [id number] / [id number] Head Poly Top Load Matrix - [id number] Implanted:Qty : 4 on 12/24/2021 by Jules Sanchez MD at OR [facility] N/A: Spine Lumbar SYNTHES : DEPUY 632.001 / / Cap Locking W/O Saddle Matrix - [id number] Implanted:Qty : 4 on 12/24/2021 by Jules Sanchez MD at OR [facility] N/A: Spine Lumbar SYNTHES : DEPUY 632.099 / / Graft Bone Infuse Kit Xsmall - [id number] - [id number] Implanted:Qty : 1 on 12/24/2021 by Jules Sanchez MD at OR [facility] N/A: Spine Lumbar [employer] : NEUROLOGIC PAIN [id number] 10/16/2022 [id number] / [id number] / [id number] Sandoval Implanted:Qty : 2 on 12/24/2021 by Jules Sanchez MD at OR [facility] N/A: Spine Lumbar DEPU[employer] SPINE INC 04.636.035 / / Cage Implanted:Qty : 1 on 12/24/2021 by Jules Sanchez MD at OR [facility] N/A: Spine Lumbar [employer] SP[employer] INC [id number] / / documented as of this encounter Visit Diagnoses Diagnosis Chronic kidney [...] Directives occurred with: Not Discussed Care Teams Rail Signal Worker Relationship Specialty Start Date End Date Becky Vivian JIMI Rueda [address] [place], [place] [address] PCP - General Physician Make Up Operator 01/28/24 documented as of this encounter
--- NOTE | 2024-09-13 10:00 | History & Physical Report ---
Date of Service September 13, 2024 Assessment & Plan (1) Angioedema: (2) CKD (chronic kidney disease), stage III: (3) HTN (hypertension): Plan This is a 69-year-old female who has significant past medical history of HTN, HLD, history of SVT, hypothyroidism, CKD stage III with baseline creatinine 1.1, Mnire's disease, history of Lumbar DDD status postlaminectomy who presents to ED secondary to swelling of face and upper lip since 6 AM. #Angioedema of lip/face admit under obs to PCU Stop Lisinopril as well as recently prescribed doxycycline continue IV solumedrol 40mg q8h, benadryl 25mg po TID, pepcid 20mg tid monitor closely with continuous pulse ox and close airway monitoring #Suspected Viral LRTI/Cough will stop doxycycline pt started pred taper yesterday, consider pred course at discharge will hold on further antibiotics at this time given pts allergy list and suspect its viral anyway start delysm q12h for cough #ECG Change: pt with new lateral T wave inversion compared to previous in 2018, no cardiac complaints, repeat ECG and obtain resting echocardiogram #Prediabetes/Hyperglycemia: bsg 182 on admission, obtain a1c in a.m. last a1c in 2021 was 6.0 #HTN: chronic, stable, stop lisinopril, monitor BP, if remains elevated consider HCTZ, otherwise if remains stable will defer management to pts PCP #Hypothyroidism: continue synthroid #CKD 3: cr 1.1 at baseline, bun/cr stable, will give gentle hydration x 1L DVT ppx: SQ Lovenox FULL CODE PCP: Dr. Epps/Vivian Pena PA-C Dispo: admit under observation, if sx improving can likely discharge tomorrow Pt was seen and examined in collaboration with Dr. Sandoval, please see addendum I spent a total of 63 minutes coordinating, documenting and providing care for this patient excluding time spent in the performance of separately billed services or time spent by another provider/QHP. History of Present Illness Chief Complaint: Swelling of face and upper lip since 0600. Primary Care Provider: Lucas Epps MD This is a 69-year-old female who has significant past medical history of HTN, HLD, history of SVT, hypothyroidism, CKD stage III with baseline creatinine 1.1, Mnire's disease, history of Lumbar DDD status postlaminectomy who presents to ED secondary to swelling of face and upper lip since 6 AM. Her German is at bedside who also helps elicit history. Further history obtained from patient, ED physician and external chart review. She states when she woke up this morning she noted her upper lip was swollen as well as her face. She denies ever having similar symptoms in the past. She states over the last week she has been experiencing a cough, sinus congestion and facial pressure. She was seen in clinic yesterday and started on a prednisone taper and doxycycline. She only took 1 dose of the doxycycline last evening as well as 50 mg of prednisone. She also reports being on lisinopril for several years and never having this reaction in the past. She continues to report a dry cough. When her symptoms initially started she presented to urgent care and was prescribed benzonatate with no relief. She denies any fever, chills, sweats, lightheadedness, dizziness, chest pain, shortness of breath, wheezing, difficulty swallowing, nausea, vomiting, abdominal pain, change in her bowel or urinary habits. In ED patient remained hemodynamically stable. She was mildly tachycardic. She was saturating well on room air without evidence of airway compromise. She was started on 125 mg of IV Solu-Medrol, 20 mg of IV Pepcid and 25 mg of IV Benadryl. Patient and her feels that her facial swelling and lip swelling has improved since arrival. She did not take any of her morning medications. She denies any tobacco, alcohol or illicit drug use. She also denies any new foods or other ingested substances that may have started the event. Allergies Allergy/AdvReac Type Severity Reaction Status Date / Time DINA Inhibitors Allergy Severe angioedema Verified 09/13/24 09:12 Sulfa (Sulfonamide Allergy Severe SHOCK Verified 01/13/24 11:34 Antibiotics) Penicillins Allergy Intermediate SHOCK Verified 01/13/24 11:34 cephalexin Allergy Unknown Gastrointestinal Verified 01/13/24 11:34 Upset doxycycline Allergy Unknown angioedema Verified 09/13/24 09:43 erythromycin base Allergy Unknown Gastrointestinal Verified 01/13/24 11:34 Upset fluconazole Allergy Unknown UNSURE Verified 01/13/24 11:34 Home Medications Medication Instructions Recorded Confirmed Type baclofen 10 mg tablet 10 mg PO TID PRN Muscle Spasm 05/17/18 09/13/24 History cholecalciferol (vitamin D3) 50 2,000 unit PO QAM 05/17/18 09/13/24 History mcg (2,000 unit) capsule (Vitamin D3) fexofenadine 180 mg tablet 180 mg PO QAM 05/17/18 09/13/24 History meclizine 25 mg tablet 25 mg PO TID PRN Dizziness 05/17/18 09/13/24 History lisinopril 10 mg tablet 1 tab PO DAILY 05/19/18 09/13/24 History benzonatate 100 mg capsule 100 mg PO TID PRN Cough 09/13/24 09/13/24 History budesonide-formoterol HFA 160 1 puff inhalation BID 09/13/24 09/13/24 History mcg-4.5 mcg/actuation aerosol inhaler conjugated estrogens 0.45 mg 0.225 mg PO DAILY 09/13/24 09/13/24 History tablet (Premarin) levothyroxine 75 mcg tablet 75 mcg PO DAILY@0630 09/13/24 09/13/24 History nortriptyline 25 mg capsule 50 mg PO HS 09/13/24 09/13/24 History prednisone 10 mg tablet 10 mg PO DIRECTED 09/13/24 09/13/24 History Past Med/Surg History Problem List (Updated 09/13/24 @ 09:50 by Betzy Rodriguez PA-C) Angioedema Stress incontinence History of hematuria Dysuria Encounter for pre-operative examination WYATT (acute kidney injury) (Acute) CKD (chronic kidney disease), stage III Medical History Arthritis (04/24/13) Benign hypertension (04/24/13) Carpal tunnel syndrome (04/24/13) Chest pain (04/24/13) Gardnerella infection Asymptomatic microscopic hematuria Normal mammography (04/24/13) Migraine (04/24/13) Proteinuria Urinary urgency Cervical spine degeneration (04/24/13) HTN (hypertension) Hematuria Meniere disease Osteoarthritis Hypothyroidism Surgical History History of colonoscopy History of hysterectomy TOTAL History of surgery WRIST Fusion of spine CERVICAL Family History Mother Cardiac disorder Hypertension Social History Smoking Status: Never smoker Second Hand Exposure: No; Do You Dip or Chew Tobacco: No; Hx Alcohol Use: No Hx Substance Use: No Preferred Language: Turkish Communication Ability: Effective Environmental Science Technician Required: No Beliefs That Will Affect Care: None Current Living Situation: Spouse Feels Safe at Home: Yes Assistive Devices: Denture - Upper and Glasses Review of Systems Review of Systems: All systems reviewed & are unremarkable except as noted in HPI & below Physical Exam Physical Exam: Constitutional: WD/WN, vitals as above, NAD, sitting up in bed, pleasant, conversing easily Head: Normocephalic, Atraumatic Eyes: PERRL, conjunctivae normal, anicteric sclerae ENMT: external ear and nose normal, oropharynx normal +angioedema of upper lip, no edema to buccal mucosa, uvula visualized and properly raises Neck: trachea midline, no thyromegaly normal visual inspection Respiratory: normal respiratory effort, lungs clear to auscultation, no wheeze, rales, rhonchi. Normal insp/exp effort, no accessory muscle use Cardiovascular: tachycardic rate, reg rhythm, no murmur, no edema Vessels: no JVD or carotid bruit Chest: normal inspection of chest Abdomen: normal bowel sounds, soft, nontender, no hepatosplenomegaly Musculoskeletal: no cyanosis or clubbing, extremities motor strength 5/5 Skin: no rashes, warm and dry normal turgor Neurologic: PERRL, EOMI, accommodation nl, no face palsy, no dysarthria CN's II-XI intact bilaterally and moves all extremities Psychiatric: A+Ox3, euthymic affect Lymphatic: no cervical or axillary lymphadenopathy : deferred Results & Data Results & Data Vital Signs (Past 12 Hours) Vital Signs Pulse Resp BP Pulse Ox O2 Del Method 09/13/24 08:10 105 H 09/13/24 08:06 105 H 22 132/84 94 09/13/24 07:00 Room Air 09/13/24 07:00 129 H 18 132/76 100 Laboratory Results I have independently reviewed and interpreted patient's admitting labs including CBC, CMP. Diagnostic Findings Chest X-Ray 09/13/24 07:26 EXAM: XR chest 1V portable CLINICAL HISTORY: Cough. TECHNIQUE: An X-ray image of the chest is obtained in PA projection. COMPARISON: CR dated 05/19/2018. FINDINGS: Pulmonary Parenchyma: Lungs are clear bilaterally. No evidence of consolidation, collapse, or focal opacities. No pulmonary nodules are identified. No evidence of pleural effusion or pleural thickening. Heart and Mediastinum: Heart size and shape are normal. No mediastinal widening or masses. No hilar or mediastinal lymphadenopathy. Bony Thorax: Evidence of internal fixation lower visualized cervical levels The bony thorax appears intact without fractures or deformities. Soft Tissues: Soft tissues overlying the chest wall are unremarkable. IMPRESSION: 1. No acute cardiopulmonary abnormalities are identified. 2. No interval changes. Electronically signed by Viviana Portillo 09-13-2024 08:15 AM Medications Administered Medication List Discontinued Medications Cetirizine HCl (Cetirizine Hcl 10 Mg Tablet) 10 mg PO NOW ONE Stop: 09/13/24 07:27 Last Admin: 09/13/24 07:42 Dose: 10 mg Documented By: Diphenhydramine HCl (Diphenhydramine 50 Mg/Ml Vial) 25 mg IV NOW STA Stop: 09/13/24 07:27 Last Admin: 09/13/24 07:43 Dose: 25 mg Documented By: Famotidine (Pepcid 20mg Iv Push) 20 mg in 5 mls @ 2.5 mls/min IV NOW STA Stop: 09/13/24 07:27 Last Admin: 09/13/24 07:41 Dose: 2.5 mls/min Documented By: MR Methylprednisolone (Methylprednisolone 125 Mg/2 Ml Vial) 125 mg IV NOW STA Stop: 09/13/24 07:27 Last Admin: 09/13/24 07:44 Dose: 125 mg Documented By: MR ECG Additional Comments: I have independently reviewed and interpreted patient's admitting EKG which revealed: 106 ST, qtc 446ms, T wave inversion in lead III COVID-19 Results Results COVID-19 Adm Lab Results: RBC 4.76 M/uL (4.20-5.40) 09/13/24 WBC 9.59 K/ul (4.8-10.8) 09/13/24 Hgb 13.5 g/dl (12.0-16.0) 09/13/24 Hct 40.2 % (37.0-47.0) 09/13/24 Plt Count 313 K/uL (130-400) 09/13/24 Neutrophils (%) (Auto) 74.3 % 09/13/24 Lymphocytes (%) (Auto) 24.1 % 09/13/24 Monocytes # (Auto) 0.10 K/uL (0.11-0.59) L 09/13/24 Eosinophils # (Auto) 0.00 K/uL (0.00-0.50) 09/13/24 Immature Granulocyte % (Auto) 0.5 % 09/13/24 Neutrophils # (Auto) 7.12 K/uL (1.40-6.50) H 09/13/24 Lymphocytes # (Auto) 2.31 K/uL (1.20-3.40) 09/13/24 Monocytes # (Auto) 0.10 K/uL (0.11-0.59) L 09/13/24 Eosinophils # (Auto) 0.00 K/uL (0.00-0.50) 09/13/24 Basophils # (Auto) 0.01 K/uL (0.00-0.20) 09/13/24 Immature Granulocyte # (Auto) 0.05 K/uL (0.01-0.20) 5 Na 136 mmol/L (136-145) 09/13/24 K 4.5 mmol/L (3.5-5.1) 09/13/24 Cl 104 mmol/L (98-107) 09/13/24 CO2 21 mmol/L (21-32) 09/13/24 Anion Gap 11 (3-11) 09/13/24 BUN 31 mg/dl (6-23) H 09/13/24 Creatinine 1.22 mg/dl (0.6-1.2) H 09/13/24 BUN/Creatinine Ratio 25.4 (10-20) H 09/13/24 Glucose Level 182 mg/dl (70-99(Fasting)) H 09/13/24 Ca 9.2 mg/dl (8.6-10.3) 09/13/24 Total Bilirubin 0.4 mg/dl (0.2-1.0) 09/13/24 AST/SGOT 18 U/L (13-39) 09/13/24 ALT/SGPT 11 U/L (7-52) 09/13/24 Alkaline Phosphatase 122 U/L (34-104) H 09/13/24 Total Protein 8.1 gm/dl (6.0-8.3) 09/13/24 Albumin 3.8 gm/dl (3.4-5.0) 09/13/24 Globulin 4.3 gm/dl (2.5-4.0) H 09/13/24 Albumin/Globulin Ratio 0.9 (0.9-2) 09/13/24 Chest X-Ray 09/13/24 Code Status & VTE Plan Code Status FULL CODE VTE Prophylaxis Plan VTE Prophylaxis will be ordered: Yes Supervising Physician Co-Signing Physician Notes Patient was seen and examined at bedside. Patient has multiple allergies but denies allergies to food. Patient denies any unusual food intake in the last 2 days. Patient came in with noticing of facial/eyes/lip swelling after waking up 6 AM today. Patient has resolving viral cough per patient. Patient denies fever and reports dry cough. Patient was put on prednisone and doxycycline, patient took first dose of doxycycline last evening. Patient denies any shortness of breath or difficulty breathing or wheezing or chest pain or belly pain. Patient denies any trouble swallowing. Angioedema of lip and face, improving. Labs WNL. send Tryptase. Patient will benefit from commercial lines sales executive referral upon discharge. Continue with IV Solu-Medrol Benadryl and Pepcid. Observe overnight. Viral respiratory tract infection: Chest clear on auscultation, patient without fever, reports dry cough, gradually improving. Monitor off antibiotic. Discontinue doxycycline. Doxycycline added to allergy list. On exam: GENERAL: Alert and oriented x3. NAD, on RA. HEENT: No pallor, no icterus. Pupils equal, round and reactive to light. Oral mucosa moist. No oropharynx swelling noted. Upper lip swelling x mild. face and eyes improved minimal swelling, improved significantly since presentation per . NECK: No JVD, no neck masses. HEART: S1 and S2 heard. Regular rate and rhythm. No murmur, no gallop. RESPIRATORY SYSTEM: Normal AP diameter. No accessory muscle use. No wheezing, no crackles. ABDOMEN: Soft, bowel sounds present, nontender, no distention. CENTRAL NERVOUS SYSTEM: No facial droop. Speech is clear. Obeys simple commands. Moves extremities. EXTREMITIES: No edema, no erythema seen. I have seen and examined the patient and have discussed the case with the provider above. I agree with the assessment and plan as stated. time spent separately : 25min.
[2024-09-13 10:23] LABS: Potassium 4.5 mmol/L (3.5-5.1)
[2024-09-13] MEDS: SODIUM CHLORIDE 0.9% 1,000 ML IV SCH (11:05)
[2024-09-13] MEDS ORDERED: POLYETHYLENE (MIRALAX) 17 GM PACK PO PRN (12:27)
[2024-09-13] MEDS ORDERED: FAMOTIDINE 20 MG TAB PO PRN (12:27)
[2024-09-13] MEDS ORDERED: ALUMINUM/MAGNESIUM SUSP 30 ML UDC PO PRN (12:27)
[2024-09-13] MEDS ORDERED: ACETAMINOPHEN 325 MG TAB PO PRN (12:27)
[2024-09-13] MEDS ORDERED: ONDANSETRON INJ 2 MG/ML 2 ML VIAL IV PRN (12:27)
[2024-09-13] MEDS: diphenhydrAMINE Capsule 25 MG CAP PO SCH (14:33)
[2024-09-13] MEDS: DEXTROMETHORPHAN POLYMR COMPLX 60 MG/10 ML UDP PO SCH (14:34)
[2024-09-13 15:20] VITALS: RESP 18
[2024-09-13] MEDS: COUGH DROP (SUGAR FREE) LOZ 24 LOZ/1 BOX BUCCAL STA (19:39)
[2024-09-13] MEDS: FAMOTIDINE 20 MG TAB PO SCH (20:18)
[2024-09-13] MEDS: methylPREDNISolone 40 MG in SYRINGE 0 ML IV SCH (20:18)
[2024-09-13] MEDS: NORTRIPTYLINE HCL 25 MG CAP PO SCH (20:18)
[2024-09-13] MEDS ORDERED: MELATONIN 3 MG TAB PO PRN (21:00)
[2024-09-13] MEDS ORDERED: methylPREDNISolone 125 MG/2 ML VIAL IV SCH (21:00)
[2024-09-13] MEDS: ENOXAPARIN INJ 40 MG/0.4 ML SYR SQ SCH (21:14)
[2024-09-14 05:25] LABS: Basophils # (auto) 0.02 K/uL (0.00-0.20); Basophils % (auto) 0.1 %; Hematocrit (blood only) 33.2 % (37.0-47.0); Hemoglobin 11.2 g/dl (12.0-16.0); Immature Granulocytes # (auto) 0.08 K/uL (0.01-0.20); Immature Granulocytes % (auto) 0.6 %; Lymphocytes # (auto) 1.95 K/uL (1.20-3.40); Lymphocytes % (auto) 14.5 %; Mean Corpuscular Hgb Conc 33.7 g/dL (32.0-36.0); Mean Platelet Volume 9.8 fL (9.4-12.4); Monocytes # (auto) 0.31 K/uL (0.11-0.59); Monocytes % (auto) 2.3 %; Neutrophils # (auto) 11.11 K/uL (1.40-6.50); Neutrophils % (auto) 82.5 %; Platelet Count 300 K/uL (130-400); RDW Coefficient of Variation 12.4 % (11.5-14.5); RDW Standard Deviation 38.8 fL (36.4-46.3); Red Blood Count 3.86 M/uL (4.20-5.40); White Blood Count 13.47 K/ul (4.8-10.8)
[2024-09-14 05:30] LABS: BUN Creatinine Ratio 26.9 (10-20); Calcium 8.4 mg/dl (8.6-10.3); Creatinine Clr Calc Pharmacy 36.4 ml/min; Magnesium 1.8 mg/dl (1.7-2.4); Potassium 4.1 mmol/L (3.5-5.1)
[2024-09-14] MEDS: LEVOTHYROXINE SODIUM 75 MCG TABLET PO SCH (06:27)
[2024-09-14 08:10] VITALS: TEMP 97.9
[2024-09-14] MEDS ORDERED: ESTROGENS, CONJUGATED 0.45 MG TAB PO SCH (09:00)
[2024-09-14] MEDS: guaiFENesin/CODEINE 100MG/10MG 5ML UDC PO STA (09:08)
[2024-09-14] MEDS: FEXOFENADINE HCL 180 MG TAB PO SCH (09:09)
[2024-09-14] MEDS: CHOLECALCIFEROL 25 MCG (1000 UNITS) TAB PO SCH (09:09)
[2024-09-14] MEDS: FLUTICASONE/VILANTEROL 200/25MCG 14 PUFFS/INHALER INH SCH (09:11)
[2024-09-14] MEDS: ESTROGENS, CONJUGATED 0.45 MG TAB PO SCH (10:09)
[2024-09-14 11:34] VITALS: BP 124/72; PULSE 93; O2SAT 95
--- NOTE | 2024-09-14 11:42 | Discharge Summary ---
Discharge Summary Date of Service September 14, 2024 Principal Dx & Hospital Course #1 = Principal Diagnosis (1) Angioedema: (2) CKD (chronic kidney disease), stage III: (3) HTN (hypertension): Plan This is a 69-year-old female who has significant past medical history of HTN, HLD, history of SVT, hypothyroidism, CKD stage III with baseline creatinine 1.1, Mnire's disease, history of Lumbar DDD status postlaminectomy who presents to ED secondary to swelling of face and upper lip since 6 AM. Patient started on methylpred and Benadryl/famotidine with prompt resolution of swelling. On day of discharge, there was no oxygen requirement, dysphagia, sob, or other acute concerns. #Angioedema of lip/face admit under obs to PCU Stop Lisinopril as well as recently prescribed doxycycline Continue prednisone 40mg for 3 more days famotidine for a week bid, Benadryl qhs #Suspected Viral LRTI/Cough will stop doxycycline pt started pred taper yesterday, consider pred course at discharge will hold on further antibiotics at this time given pts allergy list and suspect its viral anyway No further antibiotics warranted #ECG Change: echo stable #HTN: chronic, stable, stop lisinopril, monitor BP, defer management to pts PCP #Hypothyroidism: continue synthroid #CKD 3: cr 1.1 at baseline, bun/cr stable, will give gentle hydration x 1L Notes For Next Care Provider Medication Changes From Visit Prednisone 40mg for three more days discontinue lisinopril 10mg and doxyxyline (avoid iso angioedema) Admission HPI Per Admitting Provider This is a 69-year-old female who has significant past medical history of HTN, HLD, history of SVT, hypothyroidism, CKD stage III with baseline creatinine 1.1, Mnire's disease, history of Lumbar DDD status postlaminectomy who presents to ED secondary to swelling of face and upper lip since 6 AM. Her German is at bedside who also helps elicit history. Further history obtained from patient, ED physician and external chart review. She states when she woke up this morning she noted her upper lip was swollen as well as her face. She denies ever having similar symptoms in the past. She states over the last week she has been experiencing a cough, sinus congestion and facial pressure. She was seen in clinic yesterday and started on a prednisone taper and doxycycline. She only took 1 dose of the doxycycline last evening as well as 50 mg of prednisone. She also reports being on lisinopril for several years and never having this reaction in the past. She continues to report a dry cough. When her symptoms initially started she presented to urgent care and was prescribed benzonatate with no relief. She denies any fever, chills, sweats, lightheadedness, dizziness, chest pain, shortness of breath, wheezing, difficulty swallowing, nausea, vomiting, abdominal pain, change in her bowel or urinary habits. In ED patient remained hemodynamically stable. She was mildly tachycardic. She was saturating well on room air without evidence of airway compromise. She was started on 125 mg of IV Solu-Medrol, 20 mg of IV Pepcid and 25 mg of IV Benadryl. Patient and her feels that her facial swelling and lip swelling has improved since arrival. She did not take any of her morning medications. She denies any tobacco, alcohol or illicit drug use. She also denies any new foods or other ingested substances that may have started the event. Admission Exam Per Admitting Provider Constitutional: WD/WN, vitals as above, NAD, sitting up in bed, pleasant, conversing easily Head: Normocephalic, Atraumatic Eyes: PERRL, conjunctivae normal, anicteric sclerae ENMT: external ear and nose normal, oropharynx normal +angioedema of upper lip, no edema to buccal mucosa, uvula visualized and properly raises Neck: trachea midline, no thyromegaly normal visual inspection Respiratory: normal respiratory effort, lungs clear to auscultation, no wheeze, rales, rhonchi. Normal insp/exp effort, no accessory muscle use Cardiovascular: tachycardic rate, reg rhythm, no murmur, no edema Vessels: no JVD or carotid bruit Chest: normal inspection of chest Abdomen: normal bowel sounds, soft, nontender, no hepatosplenomegaly Musculoskeletal: no cyanosis or clubbing, extremities motor strength 5/5 Skin: no rashes, warm and dry normal turgor Neurologic: PERRL, EOMI, accommodation nl, no face palsy, no dysarthria CN's II-XI intact bilaterally and moves all extremities Psychiatric: A+Ox3, euthymic affect Lymphatic: no cervical or axillary lymphadenopathy : deferred Discharge Exam Constitutional WD/WN, vitals as above Respiratory normal respiratory effort, lungs clear to auscultation Cardiovascular RRR, no murmur, no edema Musculoskeletal no cyanosis or clubbing, extremities motor strength 5/5 Updated Medication List Medication Instructions Recorded Confirmed Type baclofen 10 mg tablet 10 mg PO TID PRN Muscle Spasm 05/17/18 09/13/24 History cholecalciferol (vitamin D3) 50 2,000 unit PO QAM 05/17/18 09/13/24 History mcg (2,000 unit) capsule (Vitamin D3) fexofenadine 180 mg tablet 180 mg PO QAM 05/17/18 09/13/24 History meclizine 25 mg tablet 25 mg PO TID PRN Dizziness 05/17/18 09/13/24 History benzonatate 100 mg capsule 100 mg PO TID PRN Cough 09/13/24 09/13/24 History budesonide-formoterol HFA 160 1 puff inhalation BID 09/13/24 09/13/24 History mcg-4.5 mcg/actuation aerosol inhaler conjugated estrogens 0.45 mg 0.225 mg PO DAILY 09/13/24 09/13/24 History tablet (Premarin) levothyroxine 75 mcg tablet 75 mcg PO DAILY@0630 09/13/24 09/13/24 History nortriptyline 25 mg capsule 50 mg PO HS 09/13/24 09/13/24 History prednisone 10 mg tablet 10 mg PO DIRECTED 09/13/24 09/13/24 History famotidine 20 mg tablet 20 mg PO BID 1 week #14 tabs 09/14/24 Rx prednisone 20 mg tablet 40 mg (2 x 20 mg) PO DAILY 3 days 09/14/24 Rx #6 tabs Hospital Stay Data Consultations 09/13/24 09:08 ED Decision to Admit Stat Pending Results Patient Have Any Pending Studies at Discharge: No Discharge Instructions Given to Patient (Per Discharging Provider) You were admitted for facial swelling. It seems that two new medications were started and could potentially result in the swelling you experienced: Please discontinue Lisinopril 10mg Please discontinue Doxycycline 100mg Please continue with a steroid burst for the next three days -Prednisone 40mg in the morning until complete Please take famotidine two times a day for the next 7 days Please follow up with your PCP to discuss additional blood pressure medications and follow up Total Time Total Time Spent Total Time Spent (In Minutes): 45
--- NOTE | 2024-09-15 23:15 | Electrocardiogram Report ---
Test Reason : Blood Pressure : */* mmHG Vent. Rate : 106 BPM Atrial Rate : 106 BPM P-R Int : 176 ms QRS Dur : 76 ms QT Int : 336 ms P-R-T Axes : 23 -15 -7 degrees QTcB Int : 446 ms Sinus tachycardia Anterior infarct , age undetermined Nonspecific T wave abnormality Abnormal ECG When compared with ECG of 19-May-2018 10:06, Vent. rate has increased by 41 bpm Anterior infarct is now Present T wave inversion now evident in Inferior leads Nonspecific T wave abnormality now evident in Anterolateral leads Confirmed by Delta Dawson ([id number]) on 09/15/2024 11:14:57 PM Referred By: REFERRED SELF Confirmed By: Delta Dawson
--- NOTE | 2024-09-15 23:15 | Electrocardiogram Report ---
Test Reason : Blood Pressure : */* mmHG Vent. Rate : 101 BPM Atrial Rate : 101 BPM P-R Int : 180 ms QRS Dur : 76 ms QT Int : 362 ms P-R-T Axes : 26 -19 9 degrees QTcB Int : 469 ms Sinus tachycardia Minimal voltage criteria for LVH, may be normal variant ( R in aVL ) Anterior infarct (cited on or before 13-Sep-2024) Nonspecific T wave abnormality Abnormal ECG When compared with ECG of 13-Sep-2024 08:17, No significant change was found Confirmed by Delta Dawson ([id number] on 09/15/2024 11:15:18 PM Referred By: REFERRED SELF Confirmed By: Delta Dawson
== END 2024-09-14 14:02 | disposition home or self-care (01) ==
LOC: ED 07:00 → EDINP 07:00 → SUATTDRO 09:07 → EDINP 14:56 → 4W 15:12